=== PATIENT | male | born 1950 | race Caucasian/White ===

== ENCOUNTER → 2017-05-25 | Outpatient (CLI) | payer OTHER ==
[~2017-05-25] MED LIST: AMLO-114 PO; ATOR-24 PO; CLON-588 PO; CLOP1TAB15 PO; CYCL1CAP10 PO; DRGTP50 TOP; FLM4 PO; LVMI SQ; METO100T14 PO; MYCO500T5 PO; NVLGI SC; NXM/40 PO; OPTIRAY 320 IV PRN; PRED-301 PO
[2017-05-25 11:30] LABS: BLOOD UREA NITROGEN 29 mg/dl (7-18); BUN/CREATININE RATIO 23.8 (10-20)
--- NOTE | 2017-05-25 11:56 | DIAGNOSTIC IMAGING REPORT ---
CT HEAD COMBO CT DOSE: 1577.26 mGycm TECHNIQUE: Noncontrast images were obtained through the brain in the axial plane. The sequence was repeated following administration of 65 Optiray 320. A dose lowering technique was utilized adhering to the principles of ALARA. HISTORY: HEADACHE, DIZZY COMPARISON: 08/02/2014 FINDINGS: No intra or extra-axial mass lesions are visualized. There is no CT evidence of acute cortical infarction. There is no evidence of midline shift. There is no acute hemorrhage. No calvarial fractures are visualized. There are patchy white matter hypodensities likely on a small vessel basis. There is no evidence of pathologic ventricular dilatation. There is right maxilla sinus wall thickening which is felt to be chronic. There are no air-fluid levels to indicate acute sinusitis. There is persistent increased density of the tentorium, likely secondary to tentorial calcification. Postcontrast images reveal no pathologically enhancing masses. IMPRESSION: No acute intracranial findings Electronically signed by: Simon Caban M.D. 05/25/2017 11:55 AM Dictated Date/Time: 05/25/2017 11:52 AM
== END | disposition home or self-care (01) ==
LOC: C.CTS 10:13
PROVIDERS: ATTEND Physician Assistant
DX: Z94.0 Kidney transplant status (principal); R42 Dizziness and giddiness; R51 Headache; M54.5 Low back pain; G89.29 Other chronic pain; M48.06 Spinal stenosis, lumbar region; E11.65 Type 2 diabetes mellitus with hyperglycemia; Z95.818 Presence of other cardiac implants and grafts; Z79.02 Long term (current) use of antithrombotics/antiplatelets; Z79.52 Long term (current) use of systemic steroids; M19.90 Unspecified osteoarthritis, unspecified site; K21.9 Gastro-esophageal reflux disease without esophagitis; E78.5 Hyperlipidemia, unspecified; I25.10 Atherosclerotic heart disease of native coronary artery without angina pectoris; I10 Essential (primary) hypertension; Z86.73 Personal history of transient ischemic attack (TIA), and cerebral infarction without residual deficits; I25.2 Old myocardial infarction; H54.41 Blindness, right eye, normal vision left eye; Z89.511 Acquired absence of right leg below knee; Z89.512 Acquired absence of left leg below knee; Z88.5 Allergy status to narcotic agent

== ENCOUNTER → 2017-05-28 | Outpatient (CLI) | payer OTHER ==
[~2017-05-28] MED LIST changes: -CLON-588 PO; -DRGTP50 TOP; -OPTIRAY 320 IV PRN
--- NOTE | 2017-05-28 12:06 | DIAGNOSTIC IMAGING REPORT ---
MRA HEAD WITHOUT CONTRAST CLINICAL HISTORY: 67 years-old Male presenting with dizziness, headache, multiple falls over the past few months, weight loss, history of kidney transplant. TECHNIQUE: MR angiography of the head was performed without the use of intravenous contrast using 3-D [id number] technique. 3-D volumetric and/or maximum intensity projection (MIP) images were subsequently reconstructed for review. IV contrast: None.. COMPARISON: None. FINDINGS: Atherosclerotic plaque narrows the bilateral internal carotid arteries and the cavernous segments, greatest on the left with an apparent minimal diameter of 2 mm. Carotid termini patent. Remainder of the anterior circulation including the bilateral anterior middle cerebral arteries and anterior communicating artery patent. Posterior circulation demonstrates codominant vertebral arteries. The basilar, bilateral superior cerebellar, posterior cerebral, and posterior communicating arteries patent. IMPRESSION: 1. Stenosis in the bilateral cavernous segments of the internal carotid arteries, greatest on the left. No other stenosis. No evidence of aneurysm or vessel occlusion. Complete [place]. Electronically signed by: Marito Luciano M.D. 05/28/2017 12:05 PM Dictated Date/Time: 05/28/2017 12:00 PM
--- NOTE | 2017-05-28 12:37 | DIAGNOSTIC IMAGING REPORT ---
BILATERAL CAROTID DOPPLER STUDY HISTORY: Headache. Dizziness. ARTERIOSCLEROTIC CARDIOVASCULAR DISEASE COMPARISON: None. TECHNIQUE: Real-time, grayscale, and color Doppler sonography of the carotid arteries was performed. Imaging reviewed in the transverse and longitudinal planes. All measurements were calculated based on NASCET criteria. FINDINGS: Antegrade flow is seen in the bilateral vertebral arteries. The brachial pressures are hemodynamically similar. Minimal calcified plaque within the bilateral carotid bulbs. The peak systolic velocity within the right ICA is 110 cm/s. The right systolic ratio is 2.4. The peak systolic velocity within the left ICA is 71 cm/s. The left systolic ratio is 1.0. IMPRESSION: No hemodynamically significant stenosis seen within the carotid arteries. Electronically signed by: Aman Hardy M.D. 05/28/2017 12:36 PM Dictated Date/Time: 05/28/2017 12:33 PM
== END | disposition home or self-care (01) ==
LOC: C.MRI 10:17
PROVIDERS: ATTEND Physician Assistant
DX: I25.10 Atherosclerotic heart disease of native coronary artery without angina pectoris (principal); R42 Dizziness and giddiness

== ENCOUNTER → 2017-12-01 | Outpatient (CLI) | payer OTHER | END | disposition home or self-care (01) | LOC: C.PATHSPEC 18:08 | PROVIDERS: ATTEND Dermatology | DX: L98.0 Pyogenic granuloma (principal) ==

== ENCOUNTER 2022-04-14 17:35 | Inpatient (IN) ==
--- NOTE | 2022-04-14 17:49 | ED Triage Note ---
Date of Service April 14, 2022 History of Present Illness This patient was briefly evaluated while in triage. An abbreviated physical exam was performed. This patient is a 72-year-old Male with past medical history of hypertension, diabetes, stroke, and kidney transplant who presents to the ED for evaluation of cough, no appetite, right chest pain that started last week, tested positive for COVID 4 days ago. Here primarily because of the cough, states "it's just not going away and my chest hurts." Physical Exam CONSTITUTIONAL: No acute distress. Well appearing. RESPIRATORY: No tachypnea or labored breathing. Equal expansion bilaterally. NEUROLOGIC: Alert and oriented X 4 with normal affect. Normal speech. Initial orders for labs and / or imaging were placed and patient was placed in the waiting area until a bed is available. Please see further documentation for the full ED course. MDM / Impression Impression Impression: Pneumonia due to 2019 novel coronavirus, Hypoxia, Acute hyponatremia
--- NOTE | 2022-04-14 19:50 | Emergency Department Note ---
Impression & Plan Pneumonia due to 2019 novel coronavirus, Hypoxia, Acute hyponatremia ED Provider Note NAME: YENI HADDAD AGE: 72 SEX: M : 1950 ARRIVES VIA: Walk-In INFORMANT: Patient, ED PROVIDER(S): Srini Gdowin DO CHIEF COMPLAINT: Difficulty breathing HPI: The patient is a 72-year-old male who presented to the emergency department for evaluation of difficulty breathing. The patient is at ongoing symptoms since 1 week. The patient states he had a nonproductive cough and chest tightness. He does have bilateral lower extremity amputations. He denies having any swelling in his upper extremities. He denies having any abdominal pain. He did have a fever. He was seen by his family doctor last week and was diagnosed with COVID infection. The patient states that he started getting worse and having severe shortness of breath especially with exertion. He was told to go to the emergency department by his family doctor for further evaluation. He denies having any recent trauma. He has had no hemoptysis. He denies having any black or bloody bowel moods. ROS: See above HPI for pertinent positives & negatives. A total of 10 systems reviewed and were otherwise negative. PAST MEDICAL HISTORY: See Below PAST SURGICAL HISTORY: See Below FAMILY HISTORY: See Below SOCIAL HISTORY: See Below HOME MEDICATIONS: See Below ALLERGIES: See Below VITALS: See Below PHYSICAL EXAMINATION: GENERAL: Patient is awake alert in no acute distress patient is resting comfortably and showing no signs of anxiety EYES: The conjunctivae are clear. The pupils are round and reactive. EARS, NOSE, MOUTH AND THROAT: The nose is without any evidence of any deformity. Mucous membranes are moist. Tongue is midline. NECK: The neck is nontender and supple. RESPIRATORY: Diminished breath sounds are noted throughout. Scattered rhonchi were noted in both lung fitch. There were rales at the right base. CARDIOVASCULAR: Regular rate and rhythm noted there no murmurs rubs or gallops normal S1 normal S2. GASTROINTESTINAL: The abdomen is soft. Abdomen is nontender. Bilateral lower extremity amputations were noted. MUSCULOSKELETAL/EXTREMITIES: There is no evidence of gross deformity full range of motion is noted in the hips and shoulders. SKIN: There is no obvious evidence of any rash. NEUROLOGIC: Patient is awake alert and oriented x3 MEDICAL DECISION MAKING: The patient is a 72-year-old male who presented to the emergency department for an evaluation of difficulty breathing. The patient was recently diagnosed with COVID-19. He was found to be hypoxic in the emergency department. He was placed on supplemental oxygen. I discussed the patient's laboratory and radiographic studies with him. He appears to have signs of pneumonia on chest x-ray. Given the patient's recent COVID-19 test as well as his comorbidities I feel he would be a better candidate for inpatient management. He was treated with Decadron and IV antibiotics. He was reevaluated multiple times. The [facility] was notified about the patient. Triage Nursing notes reviewed. Prior medical records reviewed Vital Signs: reviewed and remarkable for elevated blood pressure and hypoxia. Differential diagnosis: Viral syndrome, otitis, pharyngitis, pneumonia, influenza, meningitis, urinary tract infection, sepsis, bacteremia, as well as other pathologies. ER treatment provided: See below Diagnostics interpreted by me: ECG: EKG was obtained in the emergency department. My interpretation is normal sinus rhythm at 88 bpm. PVCs were noted. There was no acute ST segment abnormalities noted. This was compared to a tracing from May 21, 2021. No changes were noted. Cardiac Monitoring: An order was placed for continuous cardiac monitoring. The monitor shows a rate of 76 bpm with sinus rhythm. Laboratory studies: As stated above and show below. Imaging studies: See below Consultation(s): The case was discussed with Dr. Staples who is on-call for the [facility]. Past Med/Surg History Medical History Arthritis Atherosclerosis of [place] coronary artery without angina pectoris Benign hypertension CAD (coronary artery disease) stent x 1 (2007) Carotid artery stenosis s/p left carotid endarterectomy (1996) Neck MRA (04/29/21): Over 70% stenosis within proximal aspect of the right internal carotid artery. Minimal, less than 50% stenosis is seen within distal aspect of the left internal carotid artery. Chronic back pain Chronic kidney disease s/p kidney transplant (2000) Chronic left hip pain Diabetes mellitus IDDM Enlarged prostate without lower urinary tract symptoms (luts) Gastroesophageal reflux disease Hearing loss Heart attack 2007 Hiatal hernia Hypercholesterolemia Hypertension Rx'd fludrocortisone for previous hypotension (? orthostatic) Lumbar radicular pain Lumbar spondylosis Myofascial pain Stroke CVA (1996) TIA (04/23/21) Surgical History H/O left wrist surgery History of anesthesia reaction Hallucinations, combative History of cardiac cath stent x 1 (2007) History of carotid endarterectomy 1996 (right) History of esophagogastroduodenoscopy (EGD) History of hip surgery Right ORIF Kidney replaced by transplant S/P bilateral BKA (below knee amputation) Status post carotid surgery Left (1996) Transplanted kidney 2000 Family History Father Hearing loss Heart disease Family history of diabetes mellitus Mother Hypertension Family history of diabetes mellitus Other No family history of adverse response to anesthesia No family history of bleeding disorder Denies family history of Ovarian cancer Prostate cancer Myocardial infarction Breast cancer Colorectal cancer Social History Smoking Status: Never smoker Tobacco Type: Smokeless Tobacco (Dip or Chew) Second Hand Exposure: No; Hx Alcohol Use: Yes (Occassional ) Alcohol type: hard liquor Hx Substance Use: No Preferred Language: Polish Visual Impairment: Severely Limited Hearing Ability: Hard of Hearing Beef Selector Required: No Beliefs That Will Affect Care: None marital status: Current Living Situation: Spouse current occupational status: retired Feels Safe at Home: Yes Childhood Exposure to Second-Hand Smoke: No Dental Care, Regularly: No Physical Activity Frequency: Does not Exercise Seatbelt Use: always Sunscreen Use: No Assistive Devices: Walker Allergies Allergies Allergy/AdvReac Type Severity Reaction Status Date / Time hydromorphone [From Dilaudid] Allergy Severe Respiratory Verified 04/14/22 21:04 Arrest gabapentin Allergy Unknown Unknown Verified 04/14/22 21:04 Home Meds Home Medications Medication Instructions Recorded Confirmed glucagon HCl 1 mg/mL solution for 0 mcg/kg IM UD PRN Hypoglycemia #2 06/14/19 04/14/22 injection ea aspirin 81 mg tablet,delayed 81 mg PO QAM 12/09/19 04/14/22 release acetaminophen 500 mg tablet 1,000 mg PO Q6H PRN Pain 04/24/21 04/14/22 (Tylenol Extra Strength) insulin detemir U-100 100 unit/mL 8 unit subcut QPM 05/31/21 04/14/22 subcutaneous solution (Levemir U-100 Insulin) ergocalciferol (vitamin D2) 1,250 1,250 mcg PO WK 04/14/22 04/14/22 mcg (50,000 unit) capsule hydrocodone 5 mg-acetaminophen 325 1 tab PO BID PRN Pain 04/14/22 04/14/22 mg tablet Previous Rx's Medication Instructions Recorded insulin syringe-needle U-100 0.5 #800 ea 02/03/20 mL 30 gauge x 1/2" (BD Insulin Syringe Ultra-Fine) cyclosporine modified 100 mg 100 mg PO BID #180 caps 05/10/21 capsule mycophenolate mofetil 500 mg tablet 1,000 mg PO BID #360 tabs 07/22/21 prednisone 5 mg tablet 5 mg PO DAILY #90 tabs 08/27/21 atorvastatin 40 mg tablet 40 mg PO QPM #90 tabs 08/28/21 esomeprazole magnesium 40 mg 40 mg PO QPM #90 caps 08/28/21 capsule,delayed release tamsulosin 0.4 mg capsule 0.4 mg PO QPM #90 caps 08/28/21 insulin aspart U-100 100 unit/mL 20 unit (0.2 mL) subcut TID #60 mL 09/10/21 subcutaneous solution (Novolog U-100 Insulin aspart) FreeStyle Devin 14 Day Sensor #6 ea 11/05/21 (flash glucose sensor) amlodipine 5 mg tablet 5 mg PO QAM #90 tabs 11/26/21 clopidogrel 75 mg tablet 75 mg PO QAM #90 tabs 11/26/21 fludrocortisone 0.1 mg tablet 0.1 mg PO QAM #90 tabs 11/26/21 ofloxacin 0.3 % ear drops 5 drp otic (ear) BID 10 days #10 mL 01/02/22 metoprolol tartrate 50 mg tablet 50 mg PO BID #180 tabs 04/01/22 baclofen 10 mg tablet 10 mg PO BID PRN spasms #60 tabs 04/08/22 hydrocodone 5 mg-acetaminophen 325 1 tab PO BID PRN pain #30 tabs 04/08/22 mg tablet molnupiravir 200 mg capsule (EUA) 800 mg PO Q12H 5 days #40 caps 04/10/22 Results & Data (ED) Vital Signs Vital Signs - 24 hr 04/14/22 17:47 04/14/22 19:59 04/14/22 20:00 Temperature 38.0 C H 37.1 C Temperature Source Temporal Artery Scan Oral Pulse Rate 84 Pulse Rate [Apical] 91 H 81 Respiratory Rate 20 26 H 20 Blood Pressure 122/50 L Blood Pressure [Right Arm] 178/75 H 164/81 H Blood Pressure Mean 74 Blood Pressure Mean [Right Arm] 109 108 Blood Pressure Position Sitting Pulse Oximetry 89 L 93 92 Oxygen Delivery Method Room Air Nasal Cannula Oxygen Flow Rate 2 Sepsis Recent Fever Within 48 Hours Yes Sepsis New/Unexplained Change in Mental Status No Sepsis Action Taken by Nursing No Action Required 04/14/22 21:30 Temperature Temperature Source Pulse Rate Pulse Rate [Apical] 76 Respiratory Rate 27 H Blood Pressure Blood Pressure [Right Arm] 162/79 H Blood Pressure Mean Blood Pressure Mean [Right Arm] 106 Blood Pressure Position Pulse Oximetry 93 Oxygen Delivery Method Nasal Cannula Oxygen Flow Rate Sepsis Recent Fever Within 48 Hours Sepsis New/Unexplained Change in Mental Status Sepsis Action Taken by Retirement Medications Current Medication List: was personally reviewed by me Laboratory Data Attestation: I reviewed the patient's lab results. Result diagrams: 04/14/22 19:52 04/14/22 20:12 Lab Results 04/14/22 04/14/22 04/14/22 Range/Units 19:52 19:52 19:52 WBC 7.49 (4.8-10.8) K/ul RBC 5.10 (4.63-6.08) M/uL Hgb 15.3 (14.0-18.0) g/dl Hct 44.0 (40.1-51.0) % MCV 86.3 (80.0-100.0) fL MCH 30.0 (25.0-34.0) pg MCHC 34.8 (32.0-36.0) g/dL RDW Std Deviation 45.5 (36.4-46.3) fL RDW Coeff of Natacha 14.3 (11.5-14.5) % Plt Count 116 L (130-400) K/uL MPV 11.0 (9.4-12.4) fL Immature Gran % (Auto) 0.3 % Neut % (Auto) 86.9 % Lymph % (Auto) 8.1 % Hill % (Auto) 4.4 % Eos % (Auto) 0.0 % Baso % (Auto) 0.3 % Neut # (Auto) 6.51 H (1.4-6.5) K/uL Lymph # (Auto) 0.61 L (1.2-3.4) K/uL Hill # (Auto) 0.33 (0.24-0.82) K/uL Eos # (Auto) 0.00 (0-0.50) K/uL Baso # (Auto) 0.02 (0-0.2) K/uL Immature Gran # (Auto) 0.02 (0.00-0.02) K/uL Echinocytes 1+ PT 11.4 (9.0-12.0) Seconds INR 1.1 (0.9-1.1) APTT 31.0 (21.0-31.0) Seconds PTT Ratio 1.1 VBG pH (7.36-7.41) VBG pCO2 (38-50) mmHg VBG pO2 mmHg VBG HCO3 mmol/L VBG O2 Saturation % VBG Base Excess mEq/L Sodium TNP Potassium TNP Chloride 92 L (98-107) mmol/L Carbon Dioxide 20 L (21-32) mmol/L Anion Gap TNP BUN 28 H (6-23) mg/dl Creatinine 1.22 (0.6-1.4) mg/dl Est Cr Clr Drug Dosing Not Reportable Est GFR ( Amer) 67.3 ml/min Est GFR (Non-Af Amer) 58.0 ml/min BUN/Creatinine Ratio 23.0 H (10-20) Glucose 183 H (70-99(Fasting)) mg/dl Lactate (0.4-2.0) mmol/L Calcium 9.0 (8.5-10.1) mg/dl Total Bilirubin 1.4 H (0.2-1.0) mg/dl AST TNP ALT 10 (7-52) U/L Alkaline Phosphatase 58 (34-104) U/L Troponin I High Sens 28.6 H (0-20) pg/ml Total Protein 6.0 (6.0-8.3) gm/dl Albumin 3.1 L (3.4-5.0) gm/dl Globulin 2.9 (2.5-4.0) gm/dl Albumin/Globulin Ratio 1.1 (0.9-2) Lipase 5 L (11-82) U/L SARS-CoV-2 (PCR) (Negative) Influenza Type A (PCR) (Neg) Influenza Type B (PCR) (Neg) RSV (RT-PCR) (Neg) 04/14/22 04/14/22 04/14/22 Range/Units 19:52 19:52 20:11 WBC (4.8-10.8) K/ul RBC (4.63-6.08) M/uL Hgb (14.0-18.0) g/dl Hct (40.1-51.0) % MCV (80.0-100.0) fL MCH (25.0-34.0) pg MCHC (32.0-36.0) g/dL RDW Std Deviation (36.4-46.3) fL RDW Coeff of Natacha (11.5-14.5) % Plt Count (130-400) K/uL MPV (9.4-12.4) fL Immature Gran % (Auto) % Neut % (Auto) % Lymph % (Auto) % Hill % (Auto) % Eos % (Auto) % Baso % (Auto) % Neut # (Auto) (1.4-6.5) K/uL Lymph # (Auto) (1.2-3.4) K/uL Hill # (Auto) (0.24-0.82) K/uL Eos # (Auto) (0-0.50) K/uL Baso # (Auto) (0-0.2) K/uL Immature Gran # (Auto) (0.00-0.02) K/uL Echinocytes PT (9.0-12.0) Seconds INR (0.9-1.1) APTT (21.0-31.0) Seconds PTT Ratio VBG pH 7.43 H (7.36-7.41) VBG pCO2 38 (38-50) mmHg VBG pO2 40 mmHg VBG HCO3 25 mmol/L VBG O2 Saturation 69.9 % VBG Base Excess 1.0 mEq/L Sodium Potassium Chloride (98-107) mmol/L Carbon Dioxide (21-32) mmol/L Anion Gap BUN (6-23) mg/dl Creatinine (0.6-1.4) mg/dl Est Cr Clr Drug Dosing Est GFR ( Amer) ml/min Est GFR (Non-Af Amer) ml/min BUN/Creatinine Ratio (10-20) Glucose (70-99(Fasting)) mg/dl Lactate 1.2 (0.4-2.0) mmol/L Calcium (8.5-10.1) mg/dl Total Bilirubin (0.2-1.0) mg/dl AST ALT (7-52) U/L Alkaline Phosphatase (34-104) U/L Troponin I High Sens (0-20) pg/ml Total Protein (6.0-8.3) gm/dl Albumin (3.4-5.0) gm/dl Globulin (2.5-4.0) gm/dl Albumin/Globulin Ratio (0.9-2) Lipase (11-82) U/L SARS-CoV-2 (PCR) POSITIVE A* (Negative) Influenza Type A (PCR) Negative (Neg) Influenza Type B (PCR) Negative (Neg) RSV (RT-PCR) Negative (Neg) 04/14/22 Range/Units 20:12 WBC (4.8-10.8) K/ul RBC (4.63-6.08) M/uL Hgb (14.0-18.0) g/dl Hct (40.1-51.0) % MCV (80.0-100.0) fL MCH (25.0-34.0) pg MCHC (32.0-36.0) g/dL RDW Std Deviation (36.4-46.3) fL RDW Coeff of Natacha (11.5-14.5) % Plt Count (130-400) K/uL MPV (9.4-12.4) fL Immature Gran % (Auto) % Neut % (Auto) % Lymph % (Auto) % Hill % (Auto) % Eos % (Auto) % Baso % (Auto) % Neut # (Auto) (1.4-6.5) K/uL Lymph # (Auto) (1.2-3.4) K/uL Hill # (Auto) (0.24-0.82) K/uL Eos # (Auto) (0-0.50) K/uL Baso # (Auto) (0-0.2) K/uL Immature Gran # (Auto) (0.00-0.02) K/uL Echinocytes PT (9.0-12.0) Seconds INR (0.9-1.1) APTT (21.0-31.0) Seconds PTT Ratio VBG pH (7.36-7.41) VBG pCO2 (38-50) mmHg VBG pO2 mmHg VBG HCO3 mmol/L VBG O2 Saturation % VBG Base Excess mEq/L Sodium 127 L Potassium 3.3 L Chloride (98-107) mmol/L Carbon Dioxide (21-32) mmol/L Anion Gap BUN (6-23) mg/dl Creatinine (0.6-1.4) mg/dl Est Cr Clr Drug Dosing Est GFR ( Amer) ml/min Est GFR (Non-Af Amer) ml/min BUN/Creatinine Ratio (10-20) Glucose (70-99(Fasting)) mg/dl Lactate (0.4-2.0) mmol/L Calcium (8.5-10.1) mg/dl Total Bilirubin (0.2-1.0) mg/dl AST 23 ALT (7-52) U/L Alkaline Phosphatase (34-104) U/L Troponin I High Sens (0-20) pg/ml Total Protein (6.0-8.3) gm/dl Albumin (3.4-5.0) gm/dl Globulin (2.5-4.0) gm/dl Albumin/Globulin Ratio (0.9-2) Lipase (11-82) U/L SARS-CoV-2 (PCR) (Negative) Influenza Type A (PCR) (Neg) Influenza Type B (PCR) (Neg) RSV (RT-PCR) (Neg) Administered Medications Discontinued Medications Dexamethasone Sodium Phosphate (DexamethasonePf 10 Mg/Ml Vial) 10 mg IV NOW ONE Stop: 04/14/22 20:39 Last Admin: 04/14/22 20:57 Dose: 10 mg Documented By: MIKY Ceftriaxone Sodium (Rocephin) 2,000 mg in 70 mls @ 140 mls/hr IV NOW STA Stop: 04/14/22 21:07 Last Infusion: 04/14/22 21:38 Dose: 0 mls/hr Documented By: Admin: 04/14/22 20:57 Dose: 140 mls/hr Documented By: EMB Imaging Data Radiologist's Impression: Chest X-Ray 04/14/22 17:50 XR chest 1V portable HISTORY: 72 years-old Male Chest Pain, cough, +COVID acute chest pain with cough COMPARISON: Chest radiograph 06/06/2021 TECHNIQUE: Portable AP view of the chest FINDINGS: Cardiac silhouette is enlarged. Atherosclerosis of the aorta. Pulmonary vascular congestion. Patchy left greater than right mixed interstitial and alveolar opacities lung bases. No pneumothorax or large pleural effusion. Arterial calcifications. Degenerative changes of the shoulders and spine. IMPRESSION: Bibasilar mixed interstitial and alveolar opacities are suggestive of an infectious or inflammatory pneumonitis such as viral pneumonia. ACT 112: Negative or not required by law. The above report was generated using voice recognition software. It may contain grammatical, syntax or spelling errors. Electronically signed by: Collins Godfrey M.D. 04/14/2022 8:26 PM Discharge Plan Visit Data Chief Complaint: Referred by Doctor Stated Complaint: REFERRED BY , KIRILL + ED Provider: Srini Godwin Discharge Problem: Pneumonia due to 2019 novel coronavirus, Hypoxia, Acute hyponatremia Patient Disposition: Being Evaluated by Hospitalist Forms Stand Alone Forms: [facility] Prescriptions Prescriptions: No Action baclofen 10 mg tablet 10 mg PO BID PRN (Reason: spasms) Qty: 60 0RF hydrocodone-acetaminophen 5-325 mg tablet 1 tab PO BID PRN (Reason: pain) Qty: 30 0RF Rx Instructions: ONGOING THERAPY cyclosporine modified 100 mg capsule 100 mg PO BID Qty: 180 3RF mycophenolate mofetil 500 mg tablet 1,000 mg PO BID Qty: 360 3RF insulin aspart U-100 [Novolog U-100 Insulin aspart] 100 unit/mL solution 20 unit subcut TID Qty: 60 3RF (DME) FreeStyle Devin 14 Day Sensor Kit See Rx Instructions .Route Qty: 6 3RF Rx Instructions: use for continuous glucose monitoring molnupiravir 200 mg capsule 800 mg PO Q12H 5 Days Qty: 40 0RF Rx Instructions: STARTED 04/10/22 FOR 5 DAYS. fludrocortisone 0.1 mg tablet 0.1 mg PO QAM Qty: 90 3RF clopidogrel 75 mg tablet 75 mg PO QAM Qty: 90 3RF amlodipine 5 mg tablet 5 mg PO QAM Qty: 90 3RF (DME) insulin syringe-needle U-100 [BD Insulin Syringe Ultra-Fine] 0.5 mL 30 gauge x 1/2" syringe See Dose Instructions .ROUTE .MEDSUPPLY Qty: 800 2RF Rx Instructions: As directed glucagon HCl 1 mg recon soln 0 mcg/kg IM UD PRN (Reason: Hypoglycemia) Qty: 2 prednisone 5 mg tablet 5 mg PO DAILY Qty: 90 3RF esomeprazole magnesium 40 mg capsule,delayed release(DR/EC) 40 mg PO QPM Qty: 90 3RF tamsulosin 0.4 mg capsule 0.4 mg PO QPM Qty: 90 3RF atorvastatin 40 mg tablet 40 mg PO QPM Qty: 90 3RF metoprolol tartrate 50 mg tablet 50 mg PO BID Qty: 180 3RF ofloxacin 0.3 % drops 5 drp otic (ear) BID 10 Days Qty: 10 1RF Rx Instructions: Left ear: 5 drops BID x 10-days then 5 drops to every other day until follow- up. aspirin 81 mg Tablet,Delayed Release (Dr/Ec) 81 mg PO QAM acetaminophen [Tylenol Extra Strength] 500 mg Tablet 1,000 mg PO Q6H PRN (Reason: Pain) Levemir U-100 Insulin 100 unit/mL solution 8 unit SQ QPM ergocalciferol (vitamin D2) 1,250 mcg (50,000 unit) capsule 1,250 mcg PO WK hydrocodone-acetaminophen 5-325 mg tablet 1 tab PO BID PRN (Reason: Pain) Referrals Referrals: Srini Cordero MD [Primary Care Provider] -
[2022-04-14 20:08] LABS: Hemoglobin 15.3 g/dl (14.0-18.0); Mean Corpuscular Hgb Conc 34.8 g/dL (32.0-36.0); Mean Corpuscular Volume 86.3 fL (80.0-100.0); Platelet Count 116 K/uL (130-400); RDW Coefficient of Variation 14.3 % (11.5-14.5); RDW Standard Deviation 45.5 fL (36.4-46.3); White Blood Count 7.49 K/ul (4.8-10.8)
[2022-04-14 20:24] LABS: Basophils # (auto) 0.02 K/uL (0-0.2); Basophils % (auto) 0.3 %; Echinocytes 1+; INR 1.1 (0.9-1.1); Immature Granulocytes # (auto) 0.02 K/uL (0.00-0.02); Immature Granulocytes % (auto) 0.3 %; Lymphocytes # (auto) 0.61 K/uL (1.2-3.4); Lymphocytes % (auto) 8.1 %; Monocytes # (auto) 0.33 K/uL (0.24-0.82); Monocytes % (auto) 4.4 %; Neutrophils # (auto) 6.51 K/uL (1.4-6.5); Neutrophils % (auto) 86.9 %; Partial Thromboplastin Ratio 1.1; Prothrombin Time 11.4 Seconds (9.0-12.0)
--- NOTE | 2022-04-14 20:27 | XRay Report ---
XR chest 1V portable HISTORY: 72 years-old Male Chest Pain, cough, +COVID acute chest pain with cough COMPARISON: Chest radiograph 06/06/2021 TECHNIQUE: Portable AP view of the chest FINDINGS: Cardiac silhouette is enlarged. Atherosclerosis of the aorta. Pulmonary vascular congestion. Patchy l eft greater than right mixed interstitial and alveolar opacities lung bases. No pneumothorax or large pleural effusion. Arterial calcifications. Degenerative changes of the shoulders and spine. IMPRESSION: Bibasilar mixed interstitial and alveolar opacities are suggestive of an infectious or in flammatory pneumonitis such as viral pneumonia. ACT 112: Negative or not required by law. The above report was generated using voice recognition software. It may contain grammatical, syntax o r spelling errors. Electronically signed by: Collins Godfrey M.D. 04/14/2022 8:26 PM
[2022-04-14 20:28] LABS: HCO3 VBG 25 mmol/L; Oxygen Saturation VBG 69.9 %; PCO2 VBG 38 mmHg (38-50); PO2 VBG 40 mmHg; pH VBG 7.43 (7.36-7.41)
[2022-04-14] MEDS ORDERED: cefTRIAXone SODIUM 2,000 MG/70 ML BAG IV STA (20:38)
[2022-04-14] MEDS ORDERED: dexAMETHasone**PF** 10 MG/ML VIAL IV ONE (20:38)
[2022-04-14 20:49] LABS: Troponin I High Sensitivity 28.6 pg/ml (0-20)
[2022-04-14 20:58] LABS: Influenza A virus by PCR Negative (Neg); Influenza B virus by PCR Negative (Neg); RSV by PCR Negative (Neg)
[2022-04-14 21:04] LABS: SARS CoV2 RNA(COVID-19) InHosp POSITIVE (Negative)
[2022-04-14 21:14] LABS: Alanine Aminotransferase 10 U/L (7-52); Albumin Globulin Ratio 1.1 (0.9-2); Albumin Level 3.1 gm/dl (3.4-5.0); Alkaline Phosphatase 58 U/L (34-104); Bilirubin,Total 1.4 mg/dl (0.2-1.0); Blood Urea Nitrogen 28 mg/dl (6-23); Carbon Dioxide 20 mmol/L (21-32); Chloride 92 mmol/L (98-107); Est GFR (African American) 67.3 ml/min; Globulin 2.9 gm/dl (2.5-4.0); Glucose 183 mg/dl (70-99(Fasting)); Lipase 5 U/L (11-82)
[2022-04-14 22:34] LABS: Potassium 3.3 mmol/L (3.5-5.1)
--- NOTE | 2022-04-15 00:03 | History & Physical Report ---
Date of Service April 15, 2022 Assessment & Plan (1) Acute respiratory failure with hypoxia: Plan: Acute respiratory failure with hypoxia/secondary bacterial pneumonia/COVID-19 infection- Received dexamethasone 10 mg IV and ceftriaxone 2 g IV from the ED Dexamethasone 6 mg IV every morning Ceftriaxone 2 g IV daily Azithromycin 500 mg IV daily Combivent Respimat 2 puffs 4 times daily DuoNebs every 2 hours as needed Guaifenesin extended release 1200 mg p.o. twice daily Vitamin D 5000 international units p.o. every morning Zinc sulfate turn 20 mg p.o. every morning (2) Secondary bacterial pneumonia: Plan: Patient symptoms of worsening infection over the past week, suggestive of secondary bacterial pneumonia, treatment as above (3) COVID-19 virus infection: Plan: See above (4) Acute hyponatremia: Plan: Sodium 127 upon admission Serum osmolality and urine osmolality pending Follow laboratory serially (5) Transplanted kidney: Plan: Continue cyclosporine, mycophenolate Aggressive treatment of pulmonary status to the immunosuppressed state (6) Diabetes mellitus: Plan: Continue Levemir 8 units subcu every afternoon Hold standing order for insulin aspart 20 units [address] on Accu-Cheks before meals and at bedtime with NovoLog coverage per scale Check hemoglobin A1c (7) Gastroesophageal reflux disease: Plan: Continue Nexium/pantoprazole (8) Hypercholesterolemia: Plan: Continue atorvastatin 40 mg daily (9) Hypertension: Plan: Carotid stenosis/CVA/Hypertension- Continue amlodipine, aspirin, clopidogrel, and metoprolol tartrate (10) Stroke: Plan: See above (11) Idiopathic polyneuropathy: Plan: See above History of Present Illness Chief Complaint: The patient presents to the emergency department with complaint of progressively worsening sore throat, shortness of breath for the past 2 weeks, with nonproductive cough and chest tightness over the past week. He was seen by his family doctor last week, and was diagnosed with COVID-19 infection, and due to worsening symptoms this week, his family doctor advised him to come to the emergency department for assessment. Primary Care Provider: Srini Cordero MD The patient is a 72-year-old male with a past medical history including myofascial pain syndrome, chronic anticoagulation, idiopathic polyneuropathy, carotid stenosis, lumbar radicular pain, CAD, hypertension, status post bilateral BKA's, diabetes mellitus, BPH, GERD, hearing loss, kidney transplant status, hypertension and CVA. He presents with symptoms as noted above. Work-up in the emergency department included the following abnormal laboratories: Sodium 127, potassium 3.3, creatinine 1.22, glucose 183, highly sensitive troponin 28.6, albumin 3.1. COVID-19 testing was positive this evening. Chest x-ray showed bibasilar mixed interstitial and alveolar opacities suggestive of infectious or inflammatory pneumonitis such as viral pneumonia Allergies Allergy/AdvReac Type Severity Reaction Status Date / Time hydromorphone [From Dilaudid] Allergy Severe Respiratory Verified 04/14/22 21:04 Arrest gabapentin Allergy Unknown Unknown Verified 04/14/22 21:04 Home Medications Medication Instructions Recorded Confirmed Type glucagon HCl 1 mg/mL solution for 0 mcg/kg IM UD PRN Hypoglycemia #2 06/14/19 04/14/22 History injection ea aspirin 81 mg tablet,delayed 81 mg PO QAM 12/09/19 04/14/22 History release insulin syringe-needle U-100 0.5 #800 ea 02/03/20 04/01/22 Rx mL 30 gauge x 1/2" (BD Insulin Syringe Ultra-Fine) acetaminophen 500 mg tablet 1,000 mg PO Q6H PRN Pain 04/24/21 04/14/22 History (Tylenol Extra Strength) cyclosporine modified 100 mg 100 mg PO BID #180 caps 05/10/21 04/14/22 Rx capsule insulin detemir U-100 100 unit/mL 8 unit subcut QPM 05/31/21 04/14/22 History subcutaneous solution (Levemir U-100 Insulin) mycophenolate mofetil 500 mg tablet 1,000 mg PO BID #360 tabs 07/22/21 04/14/22 Rx prednisone 5 mg tablet 5 mg PO DAILY #90 tabs 08/27/21 04/14/22 Rx atorvastatin 40 mg tablet 40 mg PO QPM #90 tabs 08/28/21 04/14/22 Rx esomeprazole magnesium 40 mg 40 mg PO QPM #90 caps 08/28/21 04/14/22 Rx capsule,delayed release tamsulosin 0.4 mg capsule 0.4 mg PO QPM #90 caps 08/28/21 04/14/22 Rx insulin aspart U-100 100 unit/mL 20 unit (0.2 mL) subcut TID #60 mL 09/10/21 04/14/22 Rx subcutaneous solution (Novolog U-100 Insulin aspart) FreeStyle Devin 14 Day Sensor #6 ea 11/05/21 04/01/22 Rx (flash glucose sensor) amlodipine 5 mg tablet 5 mg PO QAM #90 tabs 11/26/21 04/14/22 Rx clopidogrel 75 mg tablet 75 mg PO QAM #90 tabs 11/26/21 04/14/22 Rx fludrocortisone 0.1 mg tablet 0.1 mg PO QAM #90 tabs 11/26/21 04/14/22 Rx ofloxacin 0.3 % ear drops 5 drp otic (ear) BID 10 days #10 mL 01/02/22 04/14/22 Rx metoprolol tartrate 50 mg tablet 50 mg PO BID #180 tabs 04/01/22 04/14/22 Rx baclofen 10 mg tablet 10 mg PO BID PRN spasms #60 tabs 04/08/22 04/14/22 Rx hydrocodone 5 mg-acetaminophen 325 1 tab PO BID PRN pain #30 tabs 04/08/22 04/14/22 Rx mg tablet molnupiravir 200 mg capsule (EUA) 800 mg PO Q12H 5 days #40 caps 04/10/22 04/14/22 Rx ergocalciferol (vitamin D2) 1,250 1,250 mcg PO WK 04/14/22 04/14/22 History mcg (50,000 unit) capsule hydrocodone 5 mg-acetaminophen 325 1 tab PO BID PRN Pain 04/14/22 04/14/22 History mg tablet Past Med/Surg History Medical History Arthritis Atherosclerosis of [place] coronary artery without angina pectoris Benign hypertension CAD (coronary artery disease) stent x 1 (2007) Carotid artery stenosis s/p left carotid endarterectomy (1996) Neck MRA (04/29/21): Over 70% stenosis within proximal aspect of the right internal carotid artery. Minimal, less than 50% stenosis is seen within distal aspect of the left internal carotid artery. Chronic back pain Chronic kidney disease s/p kidney transplant (2000) Chronic left hip pain Diabetes mellitus IDDM Enlarged prostate without lower urinary tract symptoms (luts) Gastroesophageal reflux disease Hearing loss Heart attack 2007 Hiatal hernia Hypercholesterolemia Hypertension Rx'd fludrocortisone for previous hypotension (? orthostatic) Lumbar radicular pain Lumbar spondylosis Myofascial pain Stroke CVA (1996) TIA (04/23/21) Surgical History H/O left wrist surgery History of anesthesia reaction Hallucinations, combative History of cardiac cath stent x 1 (2007) History of carotid endarterectomy 1996 (right) History of esophagogastroduodenoscopy (EGD) History of hip surgery Right ORIF Kidney replaced by transplant S/P bilateral BKA (below knee amputation) Status post carotid surgery Left (1996) Transplanted kidney 2000 Family History Father Hearing loss Heart disease Family history of diabetes mellitus Mother Hypertension Family history of diabetes mellitus Other No family history of adverse response to anesthesia No family history of bleeding disorder Denies family history of Ovarian cancer Prostate cancer Myocardial infarction Breast cancer Colorectal cancer Social History Smoking Status: Never smoker Tobacco Type: Smokeless Tobacco (Dip or Chew) Second Hand Exposure: No; Hx Alcohol Use: Yes (Occassional ) Alcohol type: hard liquor Hx Substance Use: No Preferred Language: Surinamese Visual Impairment: Severely Limited Hearing Ability: Hard of Hearing 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 Beliefs That Will Affect Care: None marital status: Current Living Situation: Spouse current occupational status: retired Feels Safe at Home: Yes Childhood Exposure to Second-Hand Smoke: No Dental Care, Regularly: No Physical Activity Frequency: Does not Exercise Seatbelt Use: always Sunscreen Use: No Assistive Devices: Walker Review of Systems Review of Systems: The patient denies palpitations, fevers, chills, sweats, weight change, fatigue, nausea, vomiting, diarrhea, constipation, abdominal pain, pelvic pain, blood in urine or stool, dysuria, urinary frequency or urgency, lightheadedness, dizziness, headache, memory loss, loss of consciousness, rash, abnormal bruising or bleeding, focal or generalized weakness, numbness or tingling in arms or legs, back or neck pain, or night sweats. The review of systems is otherwise negative other than for that already noted above, and at least 10 systems have been reviewed. Physical Exam Physical Exam: The patient is awake, alert and oriented 3, well developed and well nourished, normocephalic and atraumatic, lying in bed and in no acute distress. HEENT--PERRL, EOMI, mucous membranes and oropharynx dry. Neck--supple. No JVD. No bruits. Thyroid normal, trachea midline, no adenopathy. Heart--normal S1 and S2. No murmurs, rubs or gallops. Lungs--coarse breath sounds bilaterally. No respiratory distress, no accessory muscle use. Abdomen--normal bowel sounds and soft. Nontender. Nondistended, no hernias or masses, no organomegaly. Extremities--no cyanosis or clubbing. No edema. Dermatologic--normal skin turgor, normal color, no abnormal lymph nodes, no rash. Neurologic--cranial nerves II through XII grossly intact. Rheumatologic--normal range of motion, limited exam due to BKA's bilaterally Psychiatric--normal affect. Results & Data Results & Data ([facility]) Vital Signs (Past 12 Hours) Vital Signs Temp Pulse Pulse Resp BP BP Pulse Ox 04/14/22 23:00 74 20 153/77 H 93 04/14/22 21:30 76 27 H 162/79 H 93 04/14/22 20:00 81 20 164/81 H 92 04/14/22 19:59 37.1 C 91 H 26 H 178/75 H 93 04/14/22 17:47 38.0 C H 84 20 122/50 L 89 L O2 Del Method O2 Flow Rate 04/14/22 23:00 04/14/22 21:30 Nasal Cannula 04/14/22 20:00 04/14/22 19:59 Nasal Cannula 2 04/14/22 17:47 Room Air Laboratory Results Laboratory Results WBC 7.49 K/ul (4.8-10.8) 04/14/22 19:52 RBC 5.10 M/uL (4.63-6.08) 04/14/22 19:52 Hgb 15.3 g/dl (14.0-18.0) 04/14/22 19:52 Hct 44.0 % (40.1-51.0) 04/14/22 19:52 MCV 86.3 fL (80.0-100.0) 04/14/22 19:52 MCH 30.0 pg (25.0-34.0) 04/14/22: MCHC 34.8 g/dL (32.0-36.0) 04/14/22: RDW Std Deviation 45.5 fL (36.4-46.3) 04/14/22: RDW Coeff of Natacha 14.3 % (11.5-14.5) 04/14/22: Plt Count 116 K/uL (130-400) L 04/14/22:52 MPV 11.0 fL (9.4-12.4) 04/14/22: Immature Gran % (Auto) 0.3 % 04/14/22: Neut % (Auto) 86.9 % 04/14/22: Lymph % (Auto) 8.1 % 04/14/22: [place] % (Auto) 4.4 % 04/14/22: Eos % (Auto) 0.0 % 04/14/22: Baso % (Auto) 0.3 % 04/14/22: Neut # (Auto) 6.51 K/uL (1.4-6.5) H 04/14/22: Lymph # (Auto) 0.61 K/uL (1.2-3.4) L 04/14/22:52 [place] # (Auto) 0.33 K/uL (0.24-0.82) 04/14/22: Eos # (Auto) 0.00 K/uL (0-0.50) 04/14/22: Baso # (Auto) 0.02 K/uL (0-0.2) 04/14/22: Immature Gran # (Auto) 0.02 K/uL (0.00-0.02) 04/14/22: Echinocytes 1+ 04/14/22: PT 11.4 Seconds (9.0-12.0) 04/14/22: INR 1.1 (0.9-1.1) 04/14/22: APTT 31.0 Seconds (21.0-31.0) 04/14/22: PTT Ratio 1.1 04/14/22 19:52 VBG pH 7.43 (7.36-7.41) H 04/14/22 20:11 VBG pCO2 38 mmHg (38-50) 04/14/22 20:11 VBG pO2 40 mmHg 04/14/22 20:11 VBG HCO3 25 mmol/L 04/14/22 20:11 VBG O2 Saturation 69.9 % 04/14/22 20:11 VBG Base Excess 1.0 mEq/L 04/14/22 20:11 Sodium 127 mmol/L (136-145) L 04/14/22 20:12 Potassium 3.3 mmol/L (3.5-5.1) L 04/14/22 20:12 Chloride 92 mmol/L (98-107) L 04/14/22 19:52 Carbon Dioxide 20 mmol/L (21-32) L 04/14/22 19:52 Anion Gap TNP 04/14/22 19:52 BUN 28 mg/dl (6-23) H 04/14/22 19:52 Creatinine 1.22 mg/dl (0.6-1.4) 04/14/22 19:52 Est Cr Clr Drug Dosing Not Reportable 04/14/22 19:52 Est GFR ( Amer) 67.3 ml/min 04/14/22 19:52 Est GFR (Non-Af Amer) 58.0 ml/min 04/14/22 19:52 BUN/Creatinine Ratio 23.0 (10-20) H 04/14/22 19:52 Glucose 183 mg/dl (70-99(Fasting)) H 04/14/22 19:52 Lactate 1.2 mmol/L (0.4-2.0) 04/14/22 19:52 Calcium 9.0 mg/dl (8.5-10.1) 04/14/22 19:52 Total Bilirubin 1.4 mg/dl (0.2-1.0) H 04/14/22 19:52 AST 23 U/L (13-39) 04/14/22 20:12 ALT 10 U/L (7-52) 04/14/22 19:52 Alkaline Phosphatase 58 U/L (34-104) 04/14/22 19:52 Troponin I High Sens 28.6 pg/ml (0-20) H 04/14/22 19:52 Total Protein 6.0 gm/dl (6.0-8.3) 04/14/22 19:52 Albumin 3.1 gm/dl (3.4-5.0) L 04/14/22 19:52 Globulin 2.9 gm/dl (2.5-4.0) 04/14/22 19:52 Albumin/Globulin Ratio 1.1 (0.9-2) 04/14/22 19:52 Lipase 5 U/L (11-82) L 04/14/22 19:52 SARS-CoV-2 (PCR) POSITIVE (Negative) A* 04/14/22 19:52 Influenza Type A (PCR) Negative (Neg) 04/14/22 19:52 Influenza Type B (PCR) Negative (Neg) 04/14/22 19:52 RSV (RT-PCR) Negative (Neg) 04/14/22 19:52 Impressions Chest X-Ray 04/14/22 17:50 XR chest 1V portable HISTORY: 72 years-old Male Chest Pain, cough, +COVID acute chest pain with cough COMPARISON: Chest radiograph 06/06/2021 TECHNIQUE: Portable AP view of the chest FINDINGS: Cardiac silhouette is enlarged. Atherosclerosis of the aorta. Pulmonary vascular congestion. Patchy left greater than right mixed interstitial and alveolar opacities lung bases. No pneumothorax or large pleural effusion. Arterial calcifications. Degenerative changes of the shoulders and spine. IMPRESSION: Bibasilar mixed interstitial and alveolar opacities are suggestive of an infectious or inflammatory pneumonitis such as viral pneumonia. ACT 112: Negative or not required by law. The above report was generated using voice recognition software. It may contain grammatical, syntax or spelling errors. Electronically signed by: Collins Godfrey M.D. 04/14/2022 8:26 PM Code Status & VTE Plan Code Status Full code VTE Prophylaxis Plan VTE Prophylaxis will be ordered: Yes PG Care Time/CCT Total # of Minutes Spent Total Time Spent with Patient: Total time spent is greater than 50% in coordination of care (as documented) at patient's floor/unit and/or counseling patient: Coding Level of Care Code 30428 Initial Inpt Care Lvl 3 Diagnoses Acute respiratory failure with hypoxia J96.01 Secondary bacterial pneumonia J15.9 COVID-19 virus infection U07.1 Acute hyponatremia E87.1 Transplanted kidney Z94.0 Diabetes mellitus E11.9 Gastroesophageal reflux disease K21.9 Hypercholesterolemia E78.00 Hypertension I10 Stroke I63.9 Idiopathic polyneuropathy G60.9
[2022-04-15] MEDS ORDERED: GLUCOSE 40% GEL 15 GM TUBE PO PRN (01:40)
[2022-04-15] MEDS ORDERED: ALBUT/IPRATROP 3MG/0.5MG NEB 3 ML VIAL NEB PRN (01:40)
[2022-04-15] MEDS ORDERED: ACETAMINOPHEN 500 MG TAB PO PRN (01:40)
[2022-04-15] MEDS ORDERED: BACLOFEN 10 MG TAB PO PRN (01:40)
[2022-04-15] MEDS ORDERED: GLUCOSE 10 TAB/TUBE PO PRN (01:40)
[2022-04-15] MEDS ORDERED: HYDROCODONE/ACETAMOPHEN 5/325MG TAB PO PRN ×2 (01:40)
[2022-04-15] MEDS ORDERED: ONDANSETRON INJ 2 MG/ML 2 ML VIAL IV PRN (01:40)
[2022-04-15] MEDS ORDERED: DEXTROSE 50% 50 ML SYRINGE IV PRN (01:40)
[2022-04-15] MEDS ORDERED: GLUCAGON FOR INJ 1 MG VIAL SQ PRN (01:40)
[2022-04-15] MEDS ORDERED: CARBOHYDRATES FOR HYPOGLYCEMIA PO PRN (01:40)
[2022-04-15] MEDS: MYCOPHENOLATE MOFETIL 250 MG CAP PO SCH ×3 (02:34→20:38)
[2022-04-15] MEDS: cycloSPORINE 100 MG CAP PO SCH ×3 (02:34→20:40)
[2022-04-15] MEDS: METOPROLOL TARTRATE 50 MG TAB PO SCH ×3 (02:35→20:39)
[2022-04-15] MEDS: ENOXAPARIN INJ 40 MG/0.4 ML SYR SQ SCH ×2 (05:38→17:07)
[2022-04-15] MEDS: IPRATROPIUM BROMIDE HFA INHALER INH SCH ×4 (07:42→19:35)
[2022-04-15] MEDS: ALBUTEROL HFA 8 GM INHALER INH SCH ×4 (07:42→19:36)
[2022-04-15] MEDS: cefTRIAXone SODIUM 2,000 MG in DEXTROSE 5% 50 ML IV SCH (08:06)
[2022-04-15] MEDS: dexAMETHasone 6 MG in SYRINGE 0 ML IV SCH (08:06)
[2022-04-15] MEDS: CHOLECALCIFEROL 5,000 UNITS 125 MCG TAB PO SCH (08:08)
[2022-04-15] MEDS: FLUDROCORTISONE ACETATE 0.1 MG TAB PO SCH (08:08)
[2022-04-15] MEDS: guaiFENesin 600 MG TABCR PO SCH ×2 (08:08→20:39)
[2022-04-15] MEDS: amLODIPine BESYLATE 5 MG TAB PO SCH (08:09)
[2022-04-15] MEDS: ASPIRIN 81 MG ECTAB PO SCH (08:09)
[2022-04-15] MEDS: ZINC SULFATE 220 MG CAPSULE PO SCH (08:09)
[2022-04-15] MEDS: CLOPIDOGREL BISULFATE 75 MG TAB PO SCH (08:09)
[2022-04-15 08:45] LABS: Acanthocytes 1+; Echinocytes 3+; Hemoglobin 15.2 g/dl (14.0-18.0); Immature Granulocytes # (auto) 0.01 K/uL (0.00-0.02); Immature Granulocytes % (auto) 0.2 %; Lymphocytes # (auto) 0.23 K/uL (1.2-3.4); Lymphocytes % (auto) 5.3 %; Mean Corpuscular Hemoglobin 29.4 pg (25.0-34.0); Mean Corpuscular Hgb Conc 33.8 g/dL (32.0-36.0); Mean Platelet Volume 11.4 fL (9.4-12.4); Monocytes # (auto) 0.07 K/uL (0.24-0.82); Monocytes % (auto) 1.6 %; Neutrophils # (auto) 4.06 K/uL (1.4-6.5); Neutrophils % (auto) 92.9 %; Platelet Count 116 K/uL (130-400); RDW Coefficient of Variation 14.4 % (11.5-14.5); RDW Standard Deviation 46.1 fL (36.4-46.3); Red Blood Count 5.17 M/uL (4.63-6.08); White Blood Count 4.37 K/ul (4.8-10.8)
[2022-04-15] MEDS: INSULIN ASPART PER UNIT SC SCH ×4 (08:51→20:40)
[2022-04-15 09:00] LABS: Albumin Level 2.7 gm/dl (3.4-5.0); BUN Creatinine Ratio 27.9 (10-20); Bilirubin,Total 1.8 mg/dl (0.2-1.0); Calcium 8.7 mg/dl (8.5-10.1); Creatinine Clr Calc Pharmacy 41.6 ml/min; Est GFR (Non-African American) 49.1 ml/min; Globulin 2.8 gm/dl (2.5-4.0); Magnesium 1.7 mg/dl (1.7-2.4); Potassium 3.9 mmol/L (3.5-5.1); Total Protein 5.5 gm/dl (6.0-8.3)
[2022-04-15] MEDS ORDERED: IPRATROPIUM BROMIDE/ALBUTEROL respimat INH INH SCH (09:00)
[2022-04-15] MEDS ORDERED: AZITHROMYCIN 500 MG in DEXTROSE 5% 250 ML IV SCH (09:00)
[2022-04-15] MEDS ORDERED: PHARMACY GLYCEMIC MGMT CONSULT PRN (09:01)
[2022-04-15] MEDS ORDERED: INSULIN ASPART PER UNIT SC ONE (09:30)
[2022-04-15] MEDS ORDERED: LANTUS PER UNIT CHARGE SQ ONE (09:30)
[2022-04-15] MEDS ORDERED: INSULIN HUMAN REGULAR PER UNIT 5 UNITS in SYRINGE 4.95 ML IV ONE ×2 (10:00→12:30)
--- NOTE | 2022-04-15 11:44 | Electrocardiogram Report ---
Test Reason : Blood Pressure : / mmHG Vent. Rate : 088 BPM Atrial Rate : 088 BPM P-R Int : 234 ms QRS Dur : 110 ms QT Int : 374 ms P-R-T Axes : 035 -09 049 degrees QTc Int : 452 ms Sinus rhythm with 1st degree A-V block with occasional Premature ventricular complexes Otherwise normal ECG When compared with ECG of 21-MAY-2021 09:39, Premature ventricular complexes are now Present Nonspecific T wave abnormality, improved in Lateral leads Confirmed by Son Ramon ([id number]) on 04/15/2022 11:44:30 AM Referred By: Srini Cordero Confirmed By:Sameer Ramon
--- NOTE | 2022-04-15 11:53 | Electrocardiogram Report ---
Test Reason : Blood Pressure : / mmHG Vent. Rate : 067 BPM Atrial Rate : 067 BPM P-R Int : 198 ms QRS Dur : 104 ms QT Int : 452 ms P-R-T Axes : 026 -15 022 degrees QTc Int : 477 ms Normal sinus rhythm Normal ECG When compared with ECG of 14-APR-2022 19:41, (unconfirmed) Premature ventricular complexes are no longer Present [place] interval has decreased Confirmed by Son Ramon ([id number]) on 04/15/2022 11:52:27 AM Referred By: Srini Cordero Confirmed By:Sameer Ramon
[2022-04-15 13:09] LABS: Estimated Average Glucose 197 mg/dl; Hemoglobin A1C 8.5 % (4.5-5.6)
[2022-04-15] MEDS ORDERED: INSULIN ASPART PER UNIT SC SCH (14:00)
--- NOTE | 2022-04-15 14:07 | Pharmacy Report ---
Pharmacy Glycemic Short Note 2 - Date of Service April 15, 2022 - Glycemic Short BSG Results (Last 24 hours): 04/14/22 04/15/22 04/15/22 19:52 07:41 07:42 Glucose 183 H POC Glucose 454 H* 436 H* 04/15/22 04/15/22 04/15/22 07:56 11:50 13:44 Glucose 492 H* POC Glucose 444 H* 440 H* OUTPATIENT ANTIDIABETIC REGIMEN: * Levemir 8 units HS * Novolog 20 units with meals * (HM) prednisone 5 mg daily ASSESSMENT: * Mr Vega is a 72 y/o M with a PMH of T2DM who presents with COVID. * BSG on admission, prior to dexamethasone, was 183 mg/dL. * In evening of 04/14/22, patient received dexamethasone 10 mg x 1. Now ordered dexamethasone 6 mg IV daily. * BSG in AM of 04/15/22 was 454 mg/dL. Pharmacy consulted for glycemic management. * Started Lantus 25 units (full weight-based stress of 2/3) + Novolog with CR tighter than weight-based stress of 3. Suspected patient very sensitive to steroids due to large Novolog doses at home on prednisone 5 mg daily. * 5 unit IV bolus given (0.1 unit/kg). * Lunch BSG did not improve and carbohydrate ratio tightened even further. Additional 5 unit IV bolus started. * A check was ordered for 2 hours after lunch as BSGs remained > 400 mg/dL. This check was again > 400 mg/dL. Hyperglycemia has been sustained > 6 hours so a call was placed to provider for approval insulin infusion. This was okay'ed. Notified provider to consider potassium supplementation at K only 3.9 on PRP this AM. * Fixed carbohydrate ratio of 1 unit per 4 grams of carbohydrates consumed. PLAN FOR INPATIENT GLYCEMIC CONTROL: * Basal insulin * Lantus 25 units SQ x 1 then re-assess tomorrow * Bolus insulin * NovoLog per scale ACHS or Q6hrs while NPO * Goal Range: Low 140 mg/dL - High 180 mg/dL * Correction Factor: -- mg/dL/unit * Nutritional / Prandial insulin per carb ratio of 1 unit per 4 grams CHO consumed
[2022-04-15] MEDS ORDERED: POTASSIUM CHLORIDE CRTAB 20 MEQ TABCR PO STA (14:48)
[2022-04-15] MEDS ORDERED: INSULIN REGULAR 250 UNITS in SODIUM CHLORIDE 0.9% 247.5 ML IV SCH (15:00)
[2022-04-15] MEDS: POTASSIUM CHLORIDE CRTAB 20 MEQ TABCR PO SCH (20:38)
[2022-04-15] MEDS ORDERED: PANTOprazole 40 MG TAB PO SCH (21:00)
[2022-04-15] MEDS ORDERED: INSULIN DETEMIR FLEXPEN/FLEX TOUCH 100 UNITS/ML 3ML SQ SCH (21:00)
[2022-04-15] MEDS ORDERED: TAMSULOSIN HCL 0.4 MG CAP PO SCH (21:00)
[2022-04-15] MEDS ORDERED: ATORVASTATIN 40 MG TAB PO SCH (21:00)
[2022-04-16] MEDS: ENOXAPARIN INJ 40 MG/0.4 ML SYR SQ SCH (05:36)
[2022-04-16] MEDS: ALBUTEROL HFA 8 GM INHALER INH SCH (06:56)
[2022-04-16] MEDS: IPRATROPIUM BROMIDE HFA INHALER INH SCH (06:56)
[2022-04-16] MEDS ORDERED: LANTUS PER UNIT CHARGE SQ SCH (07:45)
[2022-04-16] MEDS: INSULIN ASPART PER UNIT SC SCH ×3 (08:01→16:51)
[2022-04-16] MEDS: cefTRIAXone SODIUM 2,000 MG in DEXTROSE 5% 50 ML IV SCH (08:04)
[2022-04-16] MEDS: dexAMETHasone 6 MG in SYRINGE 0 ML IV SCH (08:12)
[2022-04-16] MEDS: guaiFENesin 600 MG TABCR PO SCH (08:13)
[2022-04-16] MEDS: MYCOPHENOLATE MOFETIL 250 MG CAP PO SCH (08:13)
[2022-04-16] MEDS: CHOLECALCIFEROL 5,000 UNITS 125 MCG TAB PO SCH (08:14)
[2022-04-16] MEDS: ASPIRIN 81 MG ECTAB PO SCH (08:14)
[2022-04-16] MEDS: METOPROLOL TARTRATE 50 MG TAB PO SCH (08:14)
[2022-04-16] MEDS: amLODIPine BESYLATE 5 MG TAB PO SCH (08:14)
[2022-04-16] MEDS: ZINC SULFATE 220 MG CAPSULE PO SCH (08:14)
[2022-04-16] MEDS: CLOPIDOGREL BISULFATE 75 MG TAB PO SCH (08:14)
[2022-04-16] MEDS: POTASSIUM CHLORIDE CRTAB 20 MEQ TABCR PO SCH ×2 (08:14→15:21)
[2022-04-16] MEDS: cycloSPORINE 100 MG CAP PO SCH (08:14)
[2022-04-16] MEDS ORDERED: AZITHROMYCIN 250 MG TAB PO SCH (09:00)
[2022-04-16 09:24] LABS: Hematocrit (blood only) 44.5 % (40.1-51.0); Hemoglobin 15.6 g/dl (14.0-18.0); Mean Corpuscular Hemoglobin 29.5 pg (25.0-34.0); Mean Corpuscular Hgb Conc 35.1 g/dL (32.0-36.0); Mean Corpuscular Volume 84.1 fL (80.0-100.0); Mean Platelet Volume 10.8 fL (9.4-12.4); Platelet Count 186 K/uL (130-400); RDW Coefficient of Variation 13.6 % (11.5-14.5); Red Blood Count 5.29 M/uL (4.63-6.08); White Blood Count 9.78 K/ul (4.8-10.8)
[2022-04-16] MEDS ORDERED: ALBUTEROL HFA 8 GM INHALER INH PRN (09:28)
[2022-04-16] MEDS ORDERED: IPRATROPIUM BROMIDE HFA INHALER INH PRN (09:28)
[2022-04-16] MEDS: FLUDROCORTISONE ACETATE 0.1 MG TAB PO SCH (09:39)
[2022-04-16 09:57] LABS: Basophils # (auto) 0.01 K/uL (0-0.2); Basophils % (auto) 0.1 %; Echinocytes 1+; Immature Granulocytes # (auto) 0.02 K/uL (0.00-0.02); Immature Granulocytes % (auto) 0.2 %; Lymphocytes # (auto) 0.25 K/uL (1.2-3.4); Lymphocytes % (auto) 2.6 %; Monocytes # (auto) 0.23 K/uL (0.24-0.82); Monocytes % (auto) 2.4 %; Neutrophils # (auto) 9.27 K/uL (1.4-6.5); Neutrophils % (auto) 94.7 %
[2022-04-16 10:01] LABS: Albumin Level 2.8 gm/dl (3.4-5.0); BUN Creatinine Ratio 35.3 (10-20); Calcium 9.2 mg/dl (8.5-10.1); Creatinine Clr Calc Pharmacy 38.1 ml/min; Est GFR (African American) 51.2 ml/min; Est GFR (Non-African American) 44.1 ml/min; Globulin 2.9 gm/dl (2.5-4.0); Magnesium 1.9 mg/dl (1.7-2.4); Potassium 3.9 mmol/L (3.5-5.1); Total Protein 5.7 gm/dl (6.0-8.3)
--- NOTE | 2022-04-16 10:55 | Electrocardiogram Report ---
Test Reason : Blood Pressure : / mmHG Vent. Rate : 070 BPM Atrial Rate : 070 BPM P-R Int : 188 ms QRS Dur : 104 ms QT Int : 426 ms P-R-T Axes : 037 -07 005 degrees QTc Int : 460 ms Normal sinus rhythm Normal ECG When compared with ECG of 15-APR-2022 05:35, No significant change was found Confirmed by Son Ramon ([id number]) on 04/16/2022 10:55:15 AM Referred By: Srini Cordero Confirmed By:Sameer Ramon
--- NOTE | 2022-04-16 11:18 | Pharmacy Report ---
Pharmacy Glycemic Short Note 2 - Date of Service April 16, 2022 - Glycemic Short BSG Results (Last 24 hours): 04/15/22 04/15/22 04/15/22 11:50 13:44 15:20 Glucose POC Glucose 444 H* 440 H* 464 H* 04/15/22 04/15/22 04/15/22 16:22 17:12 18:14 Glucose POC Glucose 348 H* 305 H* 261 H 04/15/22 04/15/22 04/15/22 19:16 20:13 21:14 Glucose POC Glucose 211 H 155 H 137 H 04/15/22 04/15/22 04/15/22 22:12 23:09 23:33 Glucose POC Glucose 125 H 86 84 04/15/22 04/16/22 04/16/22 23:47 00:25 01:23 Glucose POC Glucose 91 202 H 233 H 04/16/22 04/16/22 04/16/22 02:19 03:22 04:22 Glucose POC Glucose 222 H 207 H 172 H 04/16/22 04/16/22 04/16/22 05:25 06:25 07:37 Glucose POC Glucose 157 H 153 H 171 H 04/16/22 04/16/22 04/16/22 08:05 09:38 10:40 Glucose 161 H POC Glucose 207 H 112 H OUTPATIENT ANTIDIABETIC REGIMEN: * Levemir 8 units HS * Novolog 20 units with meals * (HM) prednisone 5 mg daily ASSESSMENT: 04/16/22 * Patient has been maintained on insulin drip, rate down to 1.8units/hr this morning, and now on hold * Basal on board yesterday, continue daily and overlap with insulin drip to transition to SQ only * Continues on Dexamethasone 6mg IV daily 04/15/22 * Mr Vega is a 72 y/o M with a PMH of T2DM who presents with COVID. * BSG on admission, prior to dexamethasone, was 183 mg/dL. * In evening of 04/14/22, patient received dexamethasone 10 mg x 1. Now ordered dexamethasone 6 mg IV daily. * BSG in AM of 04/15/22 was 454 mg/dL. Pharmacy consulted for glycemic management. * Started Lantus 25 units (full weight-based stress of 2/3) + Novolog with CR tighter than weight-based stress of 3. Suspected patient very sensitive to steroids due to large Novolog doses at home on prednisone 5 mg daily. * 5 unit IV bolus given (0.1 unit/kg). * Lunch BSG did not improve and carbohydrate ratio tightened even further. Additional 5 unit IV bolus started. * A check was ordered for 2 hours after lunch as BSGs remained > 400 mg/dL. This check was again > 400 mg/dL. Hyperglycemia has been sustained > 6 hours so a call was placed to provider for approval insulin infusion. This was okay'ed. Notified provider to consider potassium supplementation at K only 3.9 on PRP this AM. * Fixed carbohydrate ratio of 1 unit per 4 grams of carbohydrates consumed. PLAN FOR INPATIENT GLYCEMIC CONTROL: * DC insulin drip * Basal insulin * Lantus 35 units SQ daily * Bolus insulin * NovoLog per scale ACHS or Q6hrs while NPO * Goal Range: Low 110 mg/dL - High 140 mg/dL * Correction Factor: 15 mg/dL/unit * Nutritional / Prandial insulin per carb ratio of 1 unit per 4 grams CHO consumed
--- NOTE | 2022-04-16 18:01 | Discharge Summary ---
Date of Service April 16, 2022 Admission HPI Per Admitting Provider The patient is a 72-year-old male with a past medical history including myofascial pain syndrome, chronic anticoagulation, idiopathic polyneuropathy, carotid stenosis, lumbar radicular pain, CAD, hypertension, status post bilateral BKA's, diabetes mellitus, BPH, GERD, hearing loss, kidney transplant status, hypertension and CVA. He presents with symptoms as noted above. Work-up in the emergency department included the following abnormal laboratories: Sodium 127, potassium 3.3, creatinine 1.22, glucose 183, highly sensitive troponin 28.6, albumin 3.1. COVID-19 testing was positive this evening. Chest x-ray showed bibasilar mixed interstitial and alveolar opacities suggestive of infectious or inflammatory pneumonitis such as viral pneumonia Discharge Data Allergies Allergy/AdvReac Type Severity Reaction Status Date / Time hydromorphone [From Dilaudid] Allergy Severe Respiratory Verified 04/14/22 21:04 Arrest gabapentin Allergy Unknown Unknown Verified 04/14/22 21:04 Consultations 04/14/22 22:13 ED Decision to Admit Stat Hospital Course (1) Acute respiratory failure with hypoxia: Acute respiratory failure with hypoxia/secondary bacterial pneumonia/COVID-19 infection- Received dexamethasone 10 mg IV and ceftriaxone 2 g IV from the ED Dexamethasone 6 mg IV every morning Ceftriaxone 2 g IV daily Azithromycin 500 mg IV daily Combivent Respimat 2 puffs 4 times daily DuoNebs every 2 hours as needed Guaifenesin extended release 1200 mg p.o. twice daily Vitamin D 5000 international units p.o. every morning Zinc sulfate turn 20 mg p.o. every morning (2) Secondary bacterial pneumonia: Patient symptoms of worsening infection over the past week, suggestive of secondary bacterial pneumonia, treatment as above (3) COVID-19 virus infection: See above (4) Acute hyponatremia: Sodium 127 upon admission Serum osmolality and urine osmolality pending Follow laboratory serially (5) Transplanted kidney: Continue cyclosporine, mycophenolate Aggressive treatment of pulmonary status to the immunosuppressed state (6) Diabetes mellitus: Continue Levemir 8 units subcu every afternoon Hold standing order for insulin aspart 20 units [address] on Accu-Cheks before meals and at bedtime with NovoLog coverage per scale Check hemoglobin A1c (7) Gastroesophageal reflux disease: Continue Nexium/pantoprazole (8) Hypercholesterolemia: Continue atorvastatin 40 mg daily (9) Hypertension: Carotid stenosis/CVA/Hypertension- Continue amlodipine, aspirin, clopidogrel, and metoprolol tartrate (10) Stroke: See above (11) Idiopathic polyneuropathy: See above Discharge Plan Discharge Items Patient Disposition: Against Medical Advice Reason For Visit: ACUTE RESP FAIL W/ HYPOXIA,COVID 19,BACTERIAL PNX Activity: Resume your previous activity Non-emergency contact: Primary Care Provider Follow-up/Referrals: Srini Cordero MD [Primary Care Provider] - Pending Studies at Discharge: No Stand-Alone Forms: My [facility], Smoking Cessation Medications and DC Order Prescriptions: New doxycycline hyclate 100 mg tablet 100 mg PO BID 3 Days Qty: 6 0RF Rx Instructions: hold zinc while on this medicine start tomorrow cefpodoxime 200 mg tablet 200 mg PO BID Qty: 6 0RF Rx Instructions: must administer with a meal/food start tomorrow on 04/17/22 dexamethasone 6 mg tablet 6 mg PO DAILY Qty: 7 0RF Rx Instructions: start tomorrow on 04/17 take one tablet daily for 7 days. Continued baclofen 10 mg tablet 10 mg PO BID PRN (Reason: spasms) Qty: 60 0RF hydrocodone-acetaminophen 5-325 mg tablet 1 tab PO BID PRN (Reason: pain) Qty: 30 0RF Rx Instructions: ONGOING THERAPY mycophenolate mofetil 500 mg tablet 1,000 mg PO BID Qty: 360 3RF insulin aspart U-100 [Novolog U-100 Insulin aspart] 100 unit/mL solution 20 unit subcut TID Qty: 60 3RF (DME) FreeStyle Devin 14 Day Sensor Kit See Rx Instructions .Route Qty: 6 3RF Rx Instructions: use for continuous glucose monitoring molnupiravir 200 mg capsule 800 mg PO Q12H 5 Days Qty: 40 0RF Rx Instructions: STARTED 04/10/22 FOR 5 DAYS. cyclosporine modified 100 mg capsule 100 mg PO BID Qty: 180 3RF fludrocortisone 0.1 mg tablet 0.1 mg PO QAM Qty: 90 3RF clopidogrel 75 mg tablet 75 mg PO QAM Qty: 90 3RF amlodipine 5 mg tablet 5 mg PO QAM Qty: 90 3RF (DME) insulin syringe-needle U-100 [BD Insulin Syringe Ultra-Fine] 0.5 mL 30 gauge x 1/2" syringe See Dose Instructions .ROUTE .MEDSUPPLY Qty: 800 2RF Rx Instructions: As directed glucagon HCl 1 mg recon soln 0 mcg/kg IM UD PRN (Reason: Hypoglycemia) Qty: 2 prednisone 5 mg tablet 5 mg PO DAILY Qty: 90 3RF esomeprazole magnesium 40 mg capsule,delayed release(DR/EC) 40 mg PO QPM Qty: 90 3RF tamsulosin 0.4 mg capsule 0.4 mg PO QPM Qty: 90 3RF atorvastatin 40 mg tablet 40 mg PO QPM Qty: 90 3RF metoprolol tartrate 50 mg tablet 50 mg PO BID Qty: 180 3RF ofloxacin 0.3 % drops 5 drp otic (ear) BID 10 Days Qty: 10 1RF Rx Instructions: Left ear: 5 drops BID x 10-days then 5 drops to every other day until follow- up. aspirin 81 mg Tablet,Delayed Release (Dr/Ec) 81 mg PO QAM acetaminophen [Tylenol Extra Strength] 500 mg Tablet 1,000 mg PO Q6H PRN (Reason: Pain) Levemir U-100 Insulin 100 unit/mL solution 8 unit SQ QPM ergocalciferol (vitamin D2) 1,250 mcg (50,000 unit) capsule 1,250 mcg PO WK hydrocodone-acetaminophen 5-325 mg tablet 1 tab PO BID PRN (Reason: Pain) Discharge Orders: Left Against Medical Advice (Routine); Ordered 04/16/22 Ordered By: Sami Caballero Admission Data Admit Date/Time: 04/15/22 00:00 Attending Provider: Sami Caballero Admit Provider: Venkat Staples Primary Care Provider: Srini Cordero Other Providers: Venkat Staples Coding Diagnoses Acute respiratory failure with hypoxia J96.01 Secondary bacterial pneumonia J15.9 COVID-19 virus infection U07.1 Acute hyponatremia E87.1 Transplanted kidney Z94.0 Diabetes mellitus E11.9 Gastroesophageal reflux disease K21.9 Hypercholesterolemia E78.00 Hypertension I10 Stroke I63.9 Idiopathic polyneuropathy G60.9
[2022-04-17] MEDS ORDERED: INSULIN ASPART PER UNIT SC ONE (02:00)
== END 2022-04-16 18:06 | disposition left against medical advice (07) | DRG 177 ==
LOC: ED 17:35 → SUATTDRO 04-15 → 2S 04-15
DX: E11.42 Type 2 diabetes mellitus with diabetic polyneuropathy; K21.9 Gastro-esophageal reflux disease without esophagitis; I25.10 Atherosclerotic heart disease of native coronary artery without angina pectoris; I12.9 Hypertensive chronic kidney disease with stage 1 through stage 4 chronic kidney disease, or unspecified chronic kidney disease; Z79.01 Long term (current) use of anticoagulants; J12.82 Pneumonia due to coronavirus disease 2019; U07.1 COVID-19; Z95.5 Presence of coronary angioplasty implant and graft; Z79.4 Long term (current) use of insulin; Z94.0 Kidney transplant status; E87.1 Hypo-osmolality and hyponatremia; Z88.5 Allergy status to narcotic agent; Z86.73 Personal history of transient ischemic attack (TIA), and cerebral infarction without residual deficits; J15.9 Unspecified bacterial pneumonia; E11.22 Type 2 diabetes mellitus with diabetic chronic kidney disease; J96.01 Acute respiratory failure with hypoxia; N18.9 Chronic kidney disease, unspecified; Z89.511 Acquired absence of right leg below knee; Z89.512 Acquired absence of left leg below knee

== ENCOUNTER 2022-04-18 11:53 | Inpatient (IN) ==
--- NOTE | 2022-04-18 12:24 | Emergency Department Note ---
Impression & Plan Weakness, Transplanted kidney, Pneumonia due to 2019 novel coronavirus, Chest pain, Cough ED Provider Note Provider: Joey Rodriguez MD DATE OF SERVICE: 04/18/2022 CHIEF COMPLAINT: Shortness of breath, COVID, chest pain HISTORY OF PRESENT ILLNESS: Patient is a 72-year-old gentleman history of polyneuropathy, carotid stenosis, CAD, hypertension, bilateral BKA's, diabetes, kidney transplant, CVA, hypertension, and recent hospitalization here at the beginning of the week for COVID-related symptoms including hyponatremia presenting here via ambulance from his home. Patient states he signed out himself 2 days ago and went home. Has been having since prior hospitalization some on and off mild dull left-sided chest ache. This morning however this occurred somewhat worsened as well as worsening shortness of breath. Patient denies any falls or trauma. Denies fever. States he has not been eating or drinking that well but denies significant nausea or vomiting. Denies diarrhea. States he is still making urine. Patient states he is taking the medicine he was sent home on and the records indicate this includes doxycycline, cefpodoxime, and dexamethasone. Patient is previously vaccinated for COVID. Patient reports that he is having some improvement since nebulizer with EMS. REVIEW OF SYSTEMS: A total of 10 review of systems was obtained and negative except as stated above in the HPI. PAST MEDICAL HISTORY: As noted above MEDICATIONS: Reviewed home medication list SOCIAL HISTORY: Patient denies smoking lives at home with his PHYSICAL EXAM: GENERAL: alert and oriented in no acute distress on stretcher although fatigued in appearance Head: normocephalic and atraumatic EYES: No injection, discharge or icterus. NECK: Trachea midline. ENT: Mucous membranes pink and moist. LUNGS: Airway patent. No retractions. Breath sounds coarse slight tachypnea HEART: Regular rate and rhythm. No chest wall tenderness ABDOMEN: Soft and non-tender, without guarding or rebound. No hepatosplenomegaly or masses BACK: No midline tenderness, no SI joint tenderness. No bilateral flank tenderness. SKIN: Acyanotic, warm, dry, without rashes EXTREMITIES: Without swelling, tenderness or deformity NEUROLOGICAL: No focal deficits. No aphasia. No facial droop or slurred speech. Ambulatory. EK bpm sinus rhythm with sinus arrhythmia. No PVC noted. No acute ST segment elevation noted with some artifact in V3. QTc 429. Normal axis. CONTINUOUS CARDIAC MONITORING: was ordered and showed a heart rate of 70s-80s bpm in Normal sinus rhythm with sinus arrhythmia Patient's laboratory studies and imaging reviewed. Differential includes Reactive airway disease, pneumonia, pneumothorax, COPD, CHF, infections, cardiac ischemia, pulmonary embolism, musculoskeletal, gastr ointestinal, as well as other pathologies. IMPRESSION/MEDICAL DECISION MAKING: Reviewed recent records from hospitalization here. History of renal transplant with COVID and possible bacterial pneumonia. Hyponatremic upon prior evaluation. Patient not significantly hypoxic upon arrival here. Symptoms have improved some since nebulizer with EMS although he states he is not a smoking history. No trauma history likely. EKG and troponin were sent. Chest x-ray obtained. Basic labs obtained. No evidence of significant heart failure on clinical exam or evidence of DVT. Patient blood work without anemia and white blood cell count slightly improved compared to several days ago at 7.8. Chest x-ray obtained today still with some finding concerning for left lower lobe pneumonia and some possible opacity in the right base. Renal function with some improvement as well as some improvement of the hyponatremia. I sensitive troponins improved. Still with some CRP elevation but no priors for comparison. Procalcitonin 0.37. reports he has been taking steroids and antibiotics including this morning. Intermittent episodes of hiccups for the several days to. Not doing well at home. Discussed with patient and his at bedside. Not hypoxic here but quite fatigued. Home blood work seems to trend some improvement. Systemically fatigued and not doing so well. Chest pain again has improved since several episodes earlier. Given some Mucinex as well as Tessalon Perles to help with cough and some additional albuterol here as he had improvement on the way in with EMS. Given his significant difficulties at home with symptoms we will discussed with the hospitalist for observation. DIAGNOSIS: Weakness, COVID-19, chest pain, sob DISPOSITION: Hospitalist will evaluate Patient was agreeable with this plan. Past Med/Surg History Medical History Arthritis Atherosclerosis of [place] coronary artery without angina pectoris Benign hypertension CAD (coronary artery disease) stent x 1 (2007) Carotid artery stenosis s/p left carotid endarterectomy (1996) Neck MRA (04/29/21): Over 70% stenosis within proximal aspect of the right internal carotid artery. Minimal, less than 50% stenosis is seen within distal aspect of the left internal carotid artery. Chronic back pain Chronic kidney disease s/p kidney transplant (2000) Chronic left hip pain Diabetes mellitus IDDM Enlarged prostate without lower urinary tract symptoms (luts) Gastroesophageal reflux disease Hearing loss Heart attack 2007 Hiatal hernia Hypercholesterolemia Hypertension Rx'd fludrocortisone for previous hypotension (? orthostatic) Lumbar radicular pain Lumbar spondylosis Myofascial pain Stroke CVA (1996) TIA (04/23/21) Surgical History H/O left wrist surgery History of anesthesia reaction Hallucinations, combative History of cardiac cath stent x 1 (2007) History of carotid endarterectomy 1996 (right) History of esophagogastroduodenoscopy (EGD) History of hip surgery Right ORIF Kidney replaced by transplant S/P bilateral BKA (below knee amputation) Status post carotid surgery Left (1996) Transplanted kidney 2000 Family History Father Hearing loss Heart disease Family history of diabetes mellitus Mother Hypertension Family history of diabetes mellitus Other No family history of adverse response to anesthesia No family history of bleeding disorder Denies family history of Ovarian cancer Prostate cancer Myocardial infarction Breast cancer Colorectal cancer Social History Smoking Status: Unknown if ever smoked Tobacco Type: Smokeless Tobacco (Dip or Chew) Second Hand Exposure: No; Hx Alcohol Use: Yes Alcohol type: beer Hx Substance Use: No Preferred Language: Faroese Communication Ability: Effective Visual Impairment: Severely Limited Hearing Ability: Hard of Hearing Log Peeler Required: No Beliefs That Will Affect Care: None marital status: Current Living Situation: Spouse current occupational status: retired Feels Safe at Home: Yes Childhood Exposure to Second-Hand Smoke: No Dental Care, Regularly: No Physical Activity Frequency: Does not Exercise Seatbelt Use: always Sunscreen Use: No Assistive Devices: Cane and Walker Allergies Allergies Allergy/AdvReac Type Severity Reaction Status Date / Time hydromorphone [From Dilaudid] Allergy Severe Respiratory Verified 04/18/22 16:03 Arrest gabapentin Allergy Unknown Unknown Verified 04/18/22 16:03 Home Meds Home Medications Medication Instructions Recorded Confirmed glucagon HCl 1 mg/mL solution for 0 mcg/kg IM UD PRN Hypoglycemia #2 06/14/19 04/18/22 injection ea aspirin 81 mg tablet,delayed 81 mg PO QAM 12/09/19 04/18/22 release acetaminophen 500 mg tablet 1,000 mg PO Q6H PRN Pain 04/24/21 04/18/22 (Tylenol Extra Strength) insulin detemir U-100 100 unit/mL 8 unit subcut QPM 05/31/21 04/18/22 subcutaneous solution (Levemir U-100 Insulin) ergocalciferol (vitamin D2) 1,250 1,250 mcg PO WK 04/14/22 04/18/22 mcg (50,000 unit) capsule insulin aspart U-100 100 unit/mL 20 unit subcut TIDM 04/18/22 04/18/22 subcutaneous solution (Novolog U-100 Insulin aspart) Previous Rx's Medication Instructions Recorded insulin syringe-needle U-100 0.5 #800 ea 02/03/20 mL 30 gauge x 1/2" (BD Insulin Syringe Ultra-Fine) mycophenolate mofetil 500 mg tablet 1,000 mg PO BID #360 tabs 07/22/21 prednisone 5 mg tablet 5 mg PO DAILY #90 tabs 08/27/21 atorvastatin 40 mg tablet 40 mg PO QPM #90 tabs 08/28/21 esomeprazole magnesium 40 mg 40 mg PO QPM #90 caps 08/28/21 capsule,delayed release tamsulosin 0.4 mg capsule 0.4 mg PO QPM #90 caps 08/28/21 FreeStyle Devin 14 Day Sensor #6 ea 11/05/21 (flash glucose sensor) amlodipine 5 mg tablet 5 mg PO QAM #90 tabs 11/26/21 clopidogrel 75 mg tablet 75 mg PO QAM #90 tabs 11/26/21 fludrocortisone 0.1 mg tablet 0.1 mg PO QAM #90 tabs 11/26/21 metoprolol tartrate 50 mg tablet 50 mg PO BID #180 tabs 04/01/22 baclofen 10 mg tablet 10 mg PO BID PRN spasms #60 tabs 04/08/22 hydrocodone 5 mg-acetaminophen 325 1 tab PO BID PRN pain #30 tabs 04/08/22 mg tablet cefpodoxime 200 mg tablet 200 mg PO BID #6 tabs 04/16/22 cyclosporine modified 100 mg 100 mg PO BID #180 caps 04/16/22 capsule dexamethasone 6 mg tablet 6 mg PO DAILY #7 tabs 04/16/22 doxycycline hyclate 100 mg tablet 100 mg PO BID 3 days #6 tabs 04/16/22 Results & Data (ED) Vital Signs Vital Signs - 24 hr 04/18/22 11:55 04/18/22 12:12 04/18/22 12:25 Temperature 37.1 C Temperature Source Oral Pulse Rate 78 Pulse Rate [Right Finger] Respiratory Rate 20 Respiratory Effort / Characteristics Non-Labored Spontaneous Respiratory Depth Normal Normal Respiratory Pattern Regular Blood Pressure 165/74 H Blood Pressure [Right Arm] Blood Pressure Mean 104 Blood Pressure Mean [Right Arm] Pulse Oximetry 98 95 Oxygen Delivery Method Room Air Room Air Room Air Sepsis Recent Fever Within 48 Hours No Sepsis New/Unexplained Change in Mental Status N/A Sepsis Action Taken by Nursing No Action Required 04/18/22 12:30 04/18/22 13:00 04/18/22 14:19 Temperature Temperature Source Pulse Rate Pulse Rate [Right Finger] 72 76 76 Respiratory Rate 20 22 20 Respiratory Effort / Characteristics Non-Labored Non-Labored Non-Labored Respiratory Depth Normal Normal Normal Respiratory Pattern Blood Pressure Blood Pressure [Right Arm] 175/59 H 183/64 H 163/91 H Blood Pressure Mean Blood Pressure Mean [Right Arm] 97 103 115 Pulse Oximetry 96 92 92 Oxygen Delivery Method Room Air Room Air Room Air Sepsis Recent Fever Within 48 Hours Sepsis New/Unexplained Change in Mental Status Sepsis Action Taken by Nursing Laboratory Data Result diagrams: 04/18/22 12:10 04/18/22 12:51 Lab Results 04/18/22 04/18/22 04/18/22 Range/Units 12:10 12:10 12:10 WBC 7.83 (4.8-10.8) K/ul RBC 5.01 (4.63-6.08) M/uL Hgb 15.3 (14.0-18.0) g/dl Hct 43.9 (40.1-51.0) % MCV 87.6 (80.0-100.0) fL MCH 30.5 (25.0-34.0) pg MCHC 34.9 (32.0-36.0) g/dL RDW Std Deviation 50.4 H (36.4-46.3) fL RDW Coeff of Natacha 18.6 H (11.5-14.5) % Plt Count 210 (130-400) K/uL MPV 13.1 H (9.4-12.4) fL Immature Gran % (Auto) 0.5 % Neut % (Auto) 93.6 % Lymph % (Auto) 1.9 % [place] % (Auto) 4.0 % Eos % (Auto) 0.0 % Baso % (Auto) 0.0 % Neut # (Auto) 7.33 H (1.4-6.5) K/uL Lymph # (Auto) 0.15 L (1.2-3.4) K/uL [place] # (Auto) 0.31 (0.24-0.82) K/uL Eos # (Auto) 0.00 (0-0.50) K/uL Baso # (Auto) 0.00 (0-0.2) K/uL Immature Gran # (Auto) 0.04 H (0.00-0.02) K/uL PT Cancelled INR Cancelled APTT Cancelled PTT Ratio Cancelled Sodium Cancelled Potassium Cancelled Chloride Cancelled Carbon Dioxide Cancelled Anion Gap Cancelled BUN Cancelled Creatinine Cancelled Est Cr Clr Drug Dosing Cancelled Est GFR ( Amer) Cancelled Est GFR (Non-Af Amer) Cancelled BUN/Creatinine Ratio Cancelled Glucose Cancelled Calcium Cancelled Total Bilirubin Cancelled AST Cancelled ALT Cancelled Alkaline Phosphatase Cancelled Troponin I High Sens Cancelled C-Reactive Protein (0-0.5) mg/dl Total Protein Cancelled Albumin Cancelled Globulin Cancelled Albumin/Globulin Ratio Cancelled Lipase Cancelled Procalcitonin (0-0.5) ng/ml 04/18/22 04/18/22 04/18/22 Range/Units 12:51 12:51 12:51 WBC (4.8-10.8) K/ul RBC (4.63-6.08) M/uL Hgb (14.0-18.0) g/dl Hct (40.1-51.0) % MCV (80.0-100.0) fL MCH (25.0-34.0) pg MCHC (32.0-36.0) g/dL RDW Std Deviation (36.4-46.3) fL RDW Coeff of Natacha (11.5-14.5) % Plt Count (130-400) K/uL MPV (9.4-12.4) fL Immature Gran % (Auto) % Neut % (Auto) % Lymph % (Auto) % [place] % (Auto) % Eos % (Auto) % Baso % (Auto) % Neut # (Auto) (1.4-6.5) K/uL Lymph # (Auto) (1.2-3.4) K/uL [place] # (Auto) (0.24-0.82) K/uL Eos # (Auto) (0-0.50) K/uL Baso # (Auto) (0-0.2) K/uL Immature Gran # (Auto) (0.00-0.02) K/uL PT 10.8 INR 1.0 APTT 28.6 PTT Ratio 1.0 Sodium Potassium Chloride Carbon Dioxide Anion Gap BUN Creatinine Est Cr Clr Drug Dosing Est GFR ( Amer) Est GFR (Non-Af Amer) BUN/Creatinine Ratio Glucose Calcium Total Bilirubin AST ALT Alkaline Phosphatase Troponin I High Sens C-Reactive Protein 4.40 H (0-0.5) mg/dl Total Protein Albumin Globulin Albumin/Globulin Ratio Lipase Procalcitonin 0.37 (0-0.5) ng/ml 04/18/22 Range/Units 12:51 WBC (4.8-10.8) K/ul RBC (4.63-6.08) M/uL Hgb (14.0-18.0) g/dl Hct (40.1-51.0) % MCV (80.0-100.0) fL MCH (25.0-34.0) pg MCHC (32.0-36.0) g/dL RDW Std Deviation (36.4-46.3) fL RDW Coeff of Natacha (11.5-14.5) % Plt Count (130-400) K/uL MPV (9.4-12.4) fL Immature Gran % (Auto) % Neut % (Auto) % Lymph % (Auto) % [place] % (Auto) % Eos % (Auto) % Baso % (Auto) % Neut # (Auto) (1.4-6.5) K/uL Lymph # (Auto) (1.2-3.4) K/uL [place] # (Auto) (0.24-0.82) K/uL Eos # (Auto) (0-0.50) K/uL Baso # (Auto) (0-0.2) K/uL Immature Gran # (Auto) (0.00-0.02) K/uL PT INR APTT PTT Ratio Sodium 133 L Potassium 3.9 Chloride 100 Carbon Dioxide 26 Anion Gap 7 BUN 25 H Creatinine 0.75 Est Cr Clr Drug Dosing Not Reportable Est GFR ( Amer) 104.7 Est GFR (Non-Af Amer) 90.4 BUN/Creatinine Ratio 33.3 H Glucose 163 H Calcium 9.0 Total Bilirubin 0.9 AST 49 H ALT 21 Alkaline Phosphatase 66 Troponin I High Sens 14.1 D C-Reactive Protein (0-0.5) mg/dl Total Protein 5.5 L Albumin 2.8 L Globulin 2.7 Albumin/Globulin Ratio 1.0 Lipase 6 L Procalcitonin (0-0.5) ng/ml Administered Medications Discontinued Medications Albuterol (Albuterol Hfa 8 Gm Inhaler) 4 puffs INH NOW ONE Stop: 04/18/22 14:18 Last Admin: 04/18/22 15:04 Dose: 4 puffs Documented By: GRACE Benzonatate (Benzonatate 100 Mg Capsule) 100 mg PO NOW ONE Stop: 04/18/22 14:19 Last Admin: 04/18/22 15:03 Dose: 100 mg Documented By: GRACE Guaifenesin (Guaifenesin 600 Mg Tabcr) 1,200 mg PO ONCE ONE Stop: 04/18/22 14:19 Last Admin: 04/18/22 15:03 Dose: 1,200 mg Documented By: GRACE Ceftriaxone Sodium (Rocephin) 1,000 mg in 50 mls @ 100 mls/hr IV NOW STA Stop: 04/18/22 16:11 Last Infusion: 04/18/22 18:46 Dose: 0 mls/hr Documented By: Admin: 04/18/22 18:13 Dose: 100 mls/hr Documented By: GRACE Azithromycin 500 mg/ Dextrose 255 mls @ 127.5 mls/hr IV NOW STA Stop: 04/18/22 17:41 Last Infusion: 04/18/22 18:46 Dose: 0 mls/hr Documented By: AKKarl Admin: 04/18/22 15:59 Dose: 127.5 mls/hr Documented By: MASSIEL Ioversol (Optiray 320 125ml) 120 ml IV ONCE ONE Stop: 04/18/22 17:06 Last Admin: 04/18/22 17:06 Dose: 120 ml Documented By: EDK Imaging Data Radiologist's Impression: Chest X-Ray 04/18/22 12:14 SINGLE VIEW CHEST CLINICAL HISTORY: Atypical chest pain. Covid. Dyspnea. FINDINGS: An AP, portable, upright chest radiograph is compared to study dated 04/14/2022 and correlated with chest CT dated 12/09/2019. The cardiomediastinal silhouette is unremarkable noting atherosclerotic calcification of the thoracic aorta. There is left basilar airspace consolidation. Minimal opacities are seen at the right lung base. No large pleural effusion or pneumothorax is seen. The skeletal structures are osteopenic. The bony thorax is grossly intact. Degenerative change is noted in the shoulders and thoracic spine. IMPRESSION: 1. There is left basilar consolidation, typical for pneumonia/aspiration pneumonitis. Clinical correlation will be required and radiographic follow-up to resolution is recommended. 2. Minimal airspace opacities are also seen at the right lung base. ACT 112: Negative or not required by law. Electronically signed by: Nicolas Ervin M.D. 04/18/2022 12:49 PM Discharge Plan Visit Data Chief Complaint: Shortness of Breath/Dyspnea Stated Complaint: CHEST PAIN, COVID + ED Provider: Joey Rodriguez Discharge Problem: Weakness, Transplanted kidney, Pneumonia due to 2019 novel coronavirus, Chest pain, Cough Patient Disposition: Being Evaluated by Hospitalist Discharge Instructions Interventions: ED Discharge Assessment Last Done: 04/18/22 18:00 : Chest pain Qualifiers: Chest pain type: unspecified Qualified Code(s): R07.9 - Chest pain, unspecified Cough Qualifiers: Cough type: acute Qualified Code(s): R05.1 - Acute cough
[2022-04-18 12:25] LABS: Hematocrit (blood only) 43.9 % (40.1-51.0); Hemoglobin 15.3 g/dl (14.0-18.0); Mean Corpuscular Hemoglobin 30.5 pg (25.0-34.0); Mean Corpuscular Hgb Conc 34.9 g/dL (32.0-36.0); Mean Corpuscular Volume 87.6 fL (80.0-100.0); RDW Coefficient of Variation 18.6 % (11.5-14.5); RDW Standard Deviation 50.4 fL (36.4-46.3); Red Blood Count 5.01 M/uL (4.63-6.08); White Blood Count 7.83 K/ul (4.8-10.8)
[2022-04-18 12:38] LABS: Mean Platelet Volume 13.1 fL (9.4-12.4); Platelet Count 210 K/uL (130-400)
--- NOTE | 2022-04-18 12:51 | XRay Report ---
SINGLE VIEW CHEST CLINICAL HISTORY: Atypical chest pain. Covid. Dyspnea. FINDINGS: An AP, portable, upright chest radiograph is compared to study dated 04/14/2022 and correlate d with chest CT dated 12/09/2019. The cardiomediastinal silhouette is unremarkable noting atherosclero tic calcification of the thoracic aorta. There is left basilar airspace consolidation. Minimal opacit ies are seen at the right lung base. No large pleural effusion or pneumothorax is seen. The skeletal structures are osteopenic. The bony thorax is grossly intact. Degenerative change is noted in the abe ulders and thoracic spine. IMPRESSION: 1. There is left basilar consolidation, typical for pneumonia/aspiration pneumonitis. Clinical correl ation will be required and radiographic follow-up to resolution is recommended. 2. Minimal airspace opacities are also seen at the right lung base. ACT 112: Negative or not required by law. Electronically signed by: Nicolas Ervin M.D. 04/18/2022 12:49 PM
[2022-04-18 13:06] LABS: Immature Granulocytes # (auto) 0.04 K/uL (0.00-0.02); Immature Granulocytes % (auto) 0.5 %; Lymphocytes # (auto) 0.15 K/uL (1.2-3.4); Lymphocytes % (auto) 1.9 %; Monocytes # (auto) 0.31 K/uL (0.24-0.82); Neutrophils # (auto) 7.33 K/uL (1.4-6.5); Neutrophils % (auto) 93.6 %
[2022-04-18 13:28] LABS: Partial Thromboplastin Time 28.6 Seconds (21.0-31.0); Prothrombin Time 10.8 Seconds (9.0-12.0)
[2022-04-18 13:45] LABS: Troponin I High Sensitivity 14.1 pg/ml (0-20)
[2022-04-18 13:53] LABS: Alanine Aminotransferase 21 U/L (7-52); Albumin Level 2.8 gm/dl (3.4-5.0); Alkaline Phosphatase 66 U/L (34-104); Anion Gap 7 (3-11); Aspartate Aminotransferase 49 U/L (13-39); BUN Creatinine Ratio 33.3 (10-20); Bilirubin,Total 0.9 mg/dl (0.2-1.0); Blood Urea Nitrogen 25 mg/dl (6-23); Carbon Dioxide 26 mmol/L (21-32); Chloride 100 mmol/L (98-107); Est GFR (African American) 104.7 ml/min; Est GFR (Non-African American) 90.4 ml/min; Globulin 2.7 gm/dl (2.5-4.0); Glucose 163 mg/dl (70-99(Fasting)); Lipase 6 U/L (11-82); Potassium 3.9 mmol/L (3.5-5.1); Sodium 133 mmol/L (136-145); Total Protein 5.5 gm/dl (6.0-8.3)
[2022-04-18] MEDS ORDERED: ALBUTEROL HFA 8 GM INHALER INH ONE (14:17)
[2022-04-18] MEDS ORDERED: guaiFENesin 600 MG TABCR PO ONE (14:18)
[2022-04-18] MEDS ORDERED: BENZONATATE 100 MG CAPSULE PO ONE (14:18)
--- NOTE | 2022-04-18 14:27 | History & Physical Report ---
Date of Service April 18, 2022 Assessment & Plan (1) COVID-19 virus infection: Plan: - Symptoms began over a week ago on 04/08, tested positive on 04/10. - Continues to be SOB with dull chest achiness seems to be exacerbated by his coughing. - Rocephin and azithromycin daily for secondary bacterial pneumonia. - IV dexamethasone 6 mg daily - Combivent respimat inhaler 4 times daily. - DuoNebs every 2 hours as needed. - Mucinex twice daily. - Tessalon Perles prn. (2) Secondary bacterial pneumonia: Plan: - Seen on CXR on admission 04/15 and again today. His WBC is improved today 7.83, was low on initial admission on 04/15 setting of viral illness (COVID). - Received 2 days of Rocephin and azithromycin, was sent home on 04/16 with doxycycline and cefpodoxime, completed 2 days of this. - Will restart Rocephin and azithromycin while in hospital. (3) Chest pain: Plan: - EKG NSR with sinus arrhythmia, no ST segment or T wave changes, hs trop 14.1 - Patient with acute chest pain during visit, troponin repeated and it is 14.6. EKG during chest pain episode showed normal sinus rhythm. CTA of chest checked for PE, did not identify such, showed patchy subpleural bibasilar predominant groundglass and consolidative opacities suggestive of viral pneumonia. (4) Acute hyponatremia: Plan: - Presented on 04/15 with sodium of 127, improvement, 133 today. - NSS @100 cc/hour for rehydration after poor p.o. intake with infection. (5) Hypertension: Plan: - Continue amlodipine 5 mg daily, metoprolol 50 mg twice daily. (6) Hypercholesterolemia: Plan: - Continue atorvastatin 40 mg daily. (7) Gastroesophageal reflux disease: Plan: - Continue PPI, switch to hospital formulary. (8) Diabetes mellitus: Plan: - Continue Levemir 8 units daily, with Accu-Cheks achs and SSI. (9) Transplanted kidney: Plan: - In 2000. - Continue anti-rejection medications. (10) Stroke: Plan: - In 1996. - Continue ASA plus Plavix, statin. (11) Carotid stenosis: Plan: - Continue ASA plus Plavix, statin. Plan - Obs on med/tele. - SCDs, Lovenox for VTE ppx. - Full Code. History of Present Illness Chief Complaint: shortness of breath, chest pain with recent COVID-19 infection. Primary Care Provider: Srini Cordero MD Alcides Vega is a 72-year-old male with a past medical history significant for renal transplant in 2000, DM2, neuropathy, CAD with stent in 2007, hyperlipidemia, hypertension peripheral BKA's, GERD, and CVA in 1996 who presents today via ambulance with left-sided chest pain and shortness of breath. Patient was recently seen and admitted to our hospital on 04/15 for COVID-19 infection with superimposed bacterial pneumonia. One day later on 04/16, he signed himself out AMA. He was discharged on doxycycline, cefpodoxime, and dexamethasone. Since he left hospital, he has had hard time eating and drinking at home, continues to be short of breath, and has the left-sided chest ache that has been present on and off prior to COVID diagnosis and worse after coughing. e is still urinating, has not had any fevers, nausea, vomiting, abdominal pain. Patient is vaccinated for COVID. In ED, he presents hypertensive 163/91, vital signs otherwise within normal limits, SPO2 >92%, HR 70s. Afebrile. Labs significant for sodium 133, CRP 4.40, procalcitonin 0.37. Glucose mildly elevated 163, AST 49. Renal function at baseline, improved since admission on 04/16. hs Trop 14.1. CXR shows left basilar consolidation typical for pneumonia or aspiration pneumonitis. ED course: Albuterol nebulizer treatment, Tessalon Tanvir, Mucinex. Allergies Allergy/AdvReac Type Severity Reaction Status Date / Time hydromorphone [From Dilaudid] Allergy Severe Respiratory Verified 04/18/22 16:03 Arrest gabapentin Allergy Unknown Unknown Verified 04/18/22 16:03 Home Medications Medication Instructions Recorded Confirmed Type glucagon HCl 1 mg/mL solution for 0 mcg/kg IM UD PRN Hypoglycemia #2 06/14/19 04/18/22 History injection ea aspirin 81 mg tablet,delayed 81 mg PO QAM 12/09/19 04/18/22 History release insulin syringe-needle U-100 0.5 #800 ea 02/03/20 04/17/22 Rx mL 30 gauge x 1/2" (BD Insulin Syringe Ultra-Fine) acetaminophen 500 mg tablet 1,000 mg PO Q6H PRN Pain 04/24/21 04/18/22 History (Tylenol Extra Strength) insulin detemir U-100 100 unit/mL 8 unit subcut QPM 05/31/21 04/18/22 History subcutaneous solution (Levemir U-100 Insulin) mycophenolate mofetil 500 mg tablet 1,000 mg PO BID #360 tabs 07/22/21 04/18/22 Rx prednisone 5 mg tablet 5 mg PO DAILY #90 tabs 08/27/21 04/18/22 Rx atorvastatin 40 mg tablet 40 mg PO QPM #90 tabs 08/28/21 04/18/22 Rx esomeprazole magnesium 40 mg 40 mg PO QPM #90 caps 08/28/21 04/18/22 Rx capsule,delayed release tamsulosin 0.4 mg capsule 0.4 mg PO QPM #90 caps 08/28/21 04/18/22 Rx FreeStyle Devin 14 Day Sensor #6 ea 11/05/21 04/17/22 Rx (flash glucose sensor) amlodipine 5 mg tablet 5 mg PO QAM #90 tabs 11/26/21 04/18/22 Rx clopidogrel 75 mg tablet 75 mg PO QAM #90 tabs 11/26/21 04/18/22 Rx fludrocortisone 0.1 mg tablet 0.1 mg PO QAM #90 tabs 11/26/21 04/18/22 Rx metoprolol tartrate 50 mg tablet 50 mg PO BID #180 tabs 04/01/22 04/18/22 Rx baclofen 10 mg tablet 10 mg PO BID PRN spasms #60 tabs 04/08/22 04/18/22 Rx hydrocodone 5 mg-acetaminophen 325 1 tab PO BID PRN pain #30 tabs 04/08/22 04/18/22 Rx mg tablet ergocalciferol (vitamin D2) 1,250 1,250 mcg PO WK 04/14/22 04/18/22 History mcg (50,000 unit) capsule cefpodoxime 200 mg tablet 200 mg PO BID #6 tabs 04/16/22 04/18/22 Rx cyclosporine modified 100 mg 100 mg PO BID #180 caps 04/16/22 04/18/22 Rx capsule dexamethasone 6 mg tablet 6 mg PO DAILY #7 tabs 04/16/22 04/18/22 Rx doxycycline hyclate 100 mg tablet 100 mg PO BID 3 days #6 tabs 04/16/22 04/18/22 Rx insulin aspart U-100 100 unit/mL 20 unit subcut TIDM 04/18/22 04/18/22 History subcutaneous solution (Novolog U-100 Insulin aspart) Past Med/Surg History Medical History Arthritis Atherosclerosis of [place] coronary artery without angina pectoris Benign hypertension CAD (coronary artery disease) stent x 1 (2007) Carotid artery stenosis s/p left carotid endarterectomy (1996) Neck MRA (04/29/21): Over 70% stenosis within proximal aspect of the right internal carotid artery. Minimal, less than 50% stenosis is seen within di stal aspect of the left internal carotid artery. Chronic back pain Chronic kidney disease s/p kidney transplant (2000) Chronic left hip pain Diabetes mellitus IDDM Enlarged prostate without lower urinary tract symptoms (luts) Gastroesophageal reflux disease Hearing loss Heart attack 2007 Hiatal hernia Hypercholesterolemia Hypertension Rx'd fludrocortisone for previous hypotension (? orthostatic) Lumbar radicular pain Lumbar spondylosis Myofascial pain Stroke CVA (1996) TIA (04/23/21) Surgical History H/O left wrist surgery History of anesthesia reaction Hallucinations, combative History of cardiac cath stent x 1 (2007) History of carotid endarterectomy 1996 (right) History of esophagogastroduodenoscopy (EGD) History of hip surgery Right ORIF Kidney replaced by transplant S/P bilateral BKA (below knee amputation) Status post carotid surgery Left (1996) Transplanted kidney 2000 Family History Father Hearing loss Heart disease Family history of diabetes mellitus Mother Hypertension Family history of diabetes mellitus Other No family history of adverse response to anesthesia No family history of bleeding disorder Denies family history of Ovarian cancer Prostate cancer Myocardial infarction Breast cancer Colorectal cancer Social History Smoking Status: Current some day smoker Tobacco Type: Smokeless Tobacco (Dip or Chew) Second Hand Exposure: No; Hx Alcohol Use: Yes Alcohol type: beer Hx Substance Use: No Preferred Language: Guatemalan Communication Ability: Effective Visual Impairment: Severely Limited Hearing Ability: Hard of Hearing Dietetic Tech Required: No Beliefs That Will Affect Care: None marital status: Current Living Situation: Spouse current occupational status: retired Feels Safe at Home: Yes Childhood Exposure to Second-Hand Smoke: No Dental Care, Regularly: No Physical Activity Frequency: Does not Exercise Seatbelt Use: always Sunscreen Use: No Assistive Devices: Cane and Walker Review of Systems Review of Systems: Constitutional: No fever/chills, weakness, fatigue, myalgias, anorexia, night sweats Eyes: No diplopia, no worsening or blurred vision ENT: normal hearing, no trouble swallowing Respiratory: Ongoing cough or shortness of breath with activity Cardiovascular: Chest pain with coughing, no radiation; no tightness or palpitations Abdomen: No pain, nausea, vomiting, diarrhea or constipation : Denies dysuria, hematuria, increased urgency/frequency, urinary retention Musculoskeletal: No joint pain, calf pain, swelling Neurologic: No weakness, numbness/tingling, or balance problems Psychiatric: No anxiety or depression Skin: No rash or itch Physical Exam Physical Exam: General: awake, alert, no apparent distress Head: Normocephalic, atraumatic ENT: PERRL, EOMI, no pharyngeal exudate, mucous membranes moist Chest: Crackles at lower lung bases, left greater than sign right, on room air Cardiac: Regular rate and rhythm, no murmur, no JVD, normal peripheral pulses, good capillary refill Abdominal: NABS x 4 quadrants, soft, nontender to palpation, no rebound, guarding or tenderness Extremities: Normal inspection, no peripheral edema or erythema, calfs nontender to palpation Psych: Normal mood and affect Neuro: AAO x 3, strength intact bilaterally and rated 5/5, no motor deficits, speech is clear, no peripheral sensory deficits Skin: no rash or erythema Results & Data Results & Data ([facility]) Vital Signs (Past 12 Hours) Vital Signs Temp Pulse Pulse Resp BP BP Pulse Ox 04/18/22 14:19 76 20 163/91 H 92 04/18/22 13:00 76 22 183/64 H 92 04/18/22 12:30 72 20 175/59 H 96 04/18/22 12:25 95 08/05/22 12:12 04/18/22 11:55 37.1 C 78 20 165/74 H 98 O2 Del Method 04/18/22 14:19 Room Air 04/18/22 13:00 Room Air 04/18/22 12:30 Room Air 04/18/22 12:25 Room Air 04/18/22 12:12 Room Air 04/18/22 11:55 Room Air Laboratory Results Abnormal lab results 04/18/22 04/18/22 04/18/22 Range/Units 12:10 12:51 12:51 RDW Std Deviation 50.4 H (36.4-46.3) fL RDW Coeff of Natacha 18.6 H (11.5-14.5) % MPV 13.1 H (9.4-12.4) fL Neut # (Auto) 7.33 H (1.4-6.5) K/uL Lymph # (Auto) 0.15 L (1.2-3.4) K/uL Immature Gran # (Auto) 0.04 H (0.00-0.02) K/uL Sodium 133 L (136-145) mmol/L BUN 25 H (6-23) mg/dl BUN/Creatinine Ratio 33.3 H (10-20) Glucose 163 H (70-99(Fasting)) mg/dl AST 49 H (13-39) U/L C-Reactive Protein 4.40 H (0-0.5) mg/dl Total Protein 5.5 L (6.0-8.3) gm/dl Albumin 2.8 L (3.4-5.0) gm/dl Lipase 6 L (11-82) U/L Diagnostic Findings Chest X-Ray 04/18/22 12:14 SINGLE VIEW CHEST CLINICAL HISTORY: Atypical chest pain. Covid. Dyspnea. FINDINGS: An AP, portable, upright chest radiograph is compared to study dated 04/14/2022 and correlated with chest CT dated 12/09/2019. The cardiomediastinal silhouette is unremarkable noting atherosclerotic calcification of the thoracic aorta. There is left basilar airspace consolidation. Minimal opacities are seen at the right lung base. No large pleural effusion or pneumothorax is seen. The skeletal structures are osteopenic. The bony thorax is grossly intact. Deg enerative change is noted in the shoulders and thoracic spine. IMPRESSION: 1. There is left basilar consolidation, typical for pneumonia/aspiration pneumonitis. Clinical correlation will be required and radiographic follow-up to resolution is recommended. 2. Minimal airspace opacities are also seen at the right lung base. ACT 112: Negative or not required by law. Electronically signed by: Nicolas Ervin M.D. 04/18/2022 12:49 PM ECG Additional Comments: 04/18/22 12:05 PM: Sinus rhythm with marked sinus arrhythmia Otherwise normal ECG When compared with ECG of 16-APR-2022 05:27, Nonspecific T wave abnormality now evident in Lateral leads 04/18/22 3:54 PM: Normal sinus rhythm, Possible Left atrial enlargement, Borderline ECG, When compared with ECG of 18-APR-2022 12:05, No significant change was found Code Status & VTE Plan Code Status Full Code. Supervising Physician Co-Signing Physician Notes Patient seen and examined, chart reviewed, case discussed with Manju Marr PA-C and I agree with the assessment and plan as above except as otherwise noted. Alcides is a 72-year-old male with COVID-19 +/ with chest pain, fatigue, and shortness of breath. Was on outpatient antibiotics for superimposed pneumonia comes in with worsened symptoms. High-sensitivity troponin and repeat are normal, EKG without acute ischemic findings. Patient with normal sats on room air. Is admitted for steroid treatment, antibiotics for superimposed secondary pneumonia, and slowly improving hyponatremia. Agree with management above. At bedside patient is regular, tachycardic, and breathing is without accessory muscle use of breathing but bibasilar crackles. PG Care Time/CCT Total # of Minutes Spent Total Time Spent with Patient: Total time spent is greater than 50% in coordination of care (as documented) at patient's floor/unit and/or counseling patient: Coding Level of Care Code INT OBSERVATION CARE 70M LVL 3 Diagnoses COVID-19 virus infection U07.1 Secondary bacterial pneumonia J15.9 Chest pain R07.9 Chest pain type: unspecified Acute hyponatremia E87.1 Hypertension I10 Hypercholesterolemia E78.00 Gastroesophageal reflux disease K21.9 Diabetes mellitus E11.9 Transplanted kidney Z94.0 Stroke I63.9 Carotid stenosis I65.29 (1) Chest pain Chest pain type: unspecified Qualified Code(s): R07.9 - Chest pain, unspecified
--- NOTE | 2022-04-18 15:23 | Electrocardiogram Report ---
Test Reason : Blood Pressure : / mmHG Vent. Rate : 072 BPM Atrial Rate : 072 BPM P-R Int : 196 ms QRS Dur : 102 ms QT Int : 392 ms P-R-T Axes : 037 -09 027 degrees QTc Int : 429 ms Sinus rhythm with marked sinus arrhythmia Otherwise normal ECG When compared with ECG of 16-APR-2022 05:27, Nonspecific T wave abnormality now evident in Lateral leads Confirmed by Son Ramon ([id number]) on 04/18/2022 3:23:02 PM Referred By: REFERRED SELF Confirmed By:Sameer Ramon
[2022-04-18] MEDS ORDERED: cefTRIAXone SODIUM 1,000 MG/50 ML BAG IV STA (15:42)
[2022-04-18] MEDS ORDERED: AZITHROMYCIN 500 MG in DEXTROSE 5% 250 ML IV STA (15:42)
[2022-04-18] MEDS ORDERED: OPTIRAY 320 125ml IV ONE (17:05)
--- NOTE | 2022-04-18 17:26 | CT Scan Report ---
CT angio chest PE protocol CT DOSE: 274.02 mGy.cm HISTORY: 72 years-old Male with covid history, chest pain, SOB. Acute shortness of breath and chest pain. History of Covid. TECHNIQUE: Multiple CTA images of the chest were obtained after the intravenous administration of 120 ml Optiray. Coronal and sagittal MIPS were obtained from the axial data set and were submitted for review. All measurements were obtained according to NASCET criteria. A dose lowering technique was u tilized adhering to the principles of ALARA. COMPARISON: Chest radiograph of same day, chest CT 12/09/2019 FINDINGS: CTA: Cardiomegaly without pericardial effusion. Extensive coronary artery and mitral annular calcification s. Atherosclerosis of the thoracic aorta without aneurysm or dissection. There is patency of the imag ed great vessels. There is suboptimal evaluation of the segmental and subsegmental pulmonary arterial branches within the lung bases secondary to respiratory motion artifact. No pulmonary emboli are kacie ntified. CT CHEST: Question hypodense left thyroid nodule versus artifact. Mild generalized body wall edema. No lymphade nopathy. Trace pleural effusions. No pneumothorax. Patchy bilateral subpleural and bibasilar left gre ater than right predominance groundglass and consolidative opacities. There are no suspicious pulmona ry nodules identified. Fissural and tree-in-bud micronodules of the lung bases are similar to prior a nd are likely benign. Mild tracheobronchial secretions. There is mild nonspecific mid to distal esophageal wall thickening. Air-fluid level within the esopha giovanna with tiny hiatal hernia. Partially imaged renal atrophy. Nonspecific calcifications of the thorac ic dural sac. Degenerative changes of the shoulders and spine. IMPRESSION: 1. No pulmonary emboli identified. 2. Patchy subpleural and bibasilar predominant groundglass and consolidative opacities are suggestive of viral pneumonia. 3. No lymphadenopathy. 4. Chronic findings as above. ACT 112: Negative or not required by law. The above report was generated using voice recognition software. It may contain grammatical, syntax o r spelling errors. Electronically signed by: Collins Godfrey M.D. 04/18/2022 5:24 PM
--- NOTE | 2022-04-18 17:35 | Electrocardiogram Report ---
Test Reason : Blood Pressure : / mmHG Vent. Rate : 077 BPM Atrial Rate : 077 BPM P-R Int : 190 ms QRS Dur : 104 ms QT Int : 394 ms P-R-T Axes : 053 -12 029 degrees QTc Int : 445 ms Normal sinus rhythm Possible Left atrial enlargement Borderline ECG When compared with ECG of 18-APR-2022 12:05, No significant change was found Confirmed by Son Ramon ([id number]) on 04/18/2022 5:34:56 PM Referred By: REFERRED SELF Confirmed By:Sameer Ramon
[2022-04-18] MEDS ORDERED: POLYETHYLENE (MIRALAX) 17 GM PACK PO PRN (18:15)
[2022-04-18] MEDS ORDERED: ALBUT/IPRATROP 3MG/0.5MG NEB 3 ML VIAL NEB PRN (18:15)
[2022-04-18] MEDS ORDERED: ACETAMINOPHEN 325 MG TAB PO PRN (18:15)
[2022-04-18] MEDS ORDERED: BACLOFEN 10 MG TAB PO PRN (18:15)
[2022-04-18] MEDS ORDERED: ONDANSETRON INJ 2 MG/ML 2 ML VIAL IV PRN (18:15)
[2022-04-18] MEDS ORDERED: IPRATROPIUM BROMIDE/ALBUTEROL respimat INH INH SCH (18:15)
[2022-04-18] MEDS ORDERED: GLUCAGON FOR INJ 1 MG VIAL SQ PRN (18:40)
[2022-04-18] MEDS ORDERED: GLUCOSE 10 TAB/TUBE PO PRN (18:40)
[2022-04-18] MEDS ORDERED: DEXTROSE 50% 50 ML SYRINGE IV PRN (18:40)
[2022-04-18] MEDS ORDERED: GLUCOSE 40% GEL 15 GM TUBE PO PRN (18:40)
[2022-04-18] MEDS ORDERED: CARBOHYDRATES FOR HYPOGLYCEMIA PO PRN (18:40)
[2022-04-18] MEDS ORDERED: SODIUM CHLORIDE 0.9% 1000ML 1,000 ML IV SCH (18:45)
[2022-04-18] MEDS ORDERED: Ipratropium HFA Inhaler (Combivent Respimat P&T Subs) INH SCH (19:00)
[2022-04-18] MEDS ORDERED: Albuterol HFA 8 GM Inhaler (Combivent Respimat P&T Subs) INH SCH (19:00)
[2022-04-18] MEDS: INSULIN DETEMIR FLEXPEN/FLEX TOUCH 100 UNITS/ML 3ML SC SCH (20:34)
[2022-04-18] MEDS: INSULIN ASPART PER UNIT SC SCH (20:34)
[2022-04-18] MEDS: BENZONATATE 100 MG CAPSULE PO SCH (20:35)
[2022-04-18] MEDS: MYCOPHENOLATE MOFETIL 250 MG CAP PO SCH (20:35)
[2022-04-18] MEDS: dexAMETHasone 6 MG in SYRINGE 0 ML IV SCH (20:35)
[2022-04-18] MEDS: cycloSPORINE 100 MG CAP PO SCH (20:36)
[2022-04-18] MEDS: OFLOXACIN 0.3% 75 DROPS/5 ML BTL OT SCH (20:36)
[2022-04-18] MEDS: TAMSULOSIN HCL 0.4 MG CAP PO SCH (20:36)
[2022-04-18] MEDS: guaiFENesin 600 MG TABCR PO SCH (20:36)
[2022-04-18] MEDS: METOPROLOL TARTRATE 50 MG TAB PO SCH (20:36)
[2022-04-18] MEDS: PANTOprazole 40 MG TAB PO SCH (20:36)
[2022-04-18] MEDS: ATORVASTATIN 40 MG TAB PO SCH (20:36)
[2022-04-18] MEDS ORDERED: ALBUTEROL HFA 8 GM INHALER INH PRN (21:45)
[2022-04-18] MEDS ORDERED: IPRATROPIUM BROMIDE HFA INHALER INH PRN (21:45)
[2022-04-19 07:29] LABS: Basophils # (auto) 0.01 K/uL (0-0.2); Basophils % (auto) 0.2 %; Hematocrit (blood only) 42.4 % (40.1-51.0); Hemoglobin 14.5 g/dl (14.0-18.0); Immature Granulocytes # (auto) 0.06 K/uL (0.00-0.02); Lymphocytes # (auto) 0.15 K/uL (1.2-3.4); Lymphocytes % (auto) 2.5 %; Mean Corpuscular Hemoglobin 29.4 pg (25.0-34.0); Mean Corpuscular Hgb Conc 34.2 g/dL (32.0-36.0); Mean Platelet Volume 10.5 fL (9.4-12.4); Monocytes # (auto) 0.48 K/uL (0.24-0.82); Neutrophils # (auto) 5.32 K/uL (1.4-6.5); Neutrophils % (auto) 88.3 %; Platelet Count 197 K/uL (130-400); RDW Coefficient of Variation 14.7 % (11.5-14.5); RDW Standard Deviation 46.5 fL (36.4-46.3); Red Blood Count 4.93 M/uL (4.63-6.08); White Blood Count 6.02 K/ul (4.8-10.8)
[2022-04-19 07:58] LABS: BUN Creatinine Ratio 27.4 (10-20); C Reactive Protein 4.76 mg/dl (0-0.5); Calcium 8.9 mg/dl (8.5-10.1); Creatinine Clr Calc Pharmacy 74.6 ml/min; Est GFR (Non-African American) 86.3 ml/min; Magnesium 1.4 mg/dl (1.7-2.4)
[2022-04-19] MEDS: INSULIN ASPART PER UNIT SC SCH ×4 (08:00→20:48)
[2022-04-19] MEDS: BENZONATATE 100 MG CAPSULE PO SCH ×3 (08:36→20:50)
[2022-04-19] MEDS: cycloSPORINE 100 MG CAP PO SCH ×2 (08:36→20:46)
[2022-04-19] MEDS: METOPROLOL TARTRATE 50 MG TAB PO SCH ×2 (08:36→20:46)
[2022-04-19] MEDS: amLODIPine BESYLATE 5 MG TAB PO SCH (08:37)
[2022-04-19] MEDS: guaiFENesin 600 MG TABCR PO SCH ×2 (08:37→20:47)
[2022-04-19] MEDS: MYCOPHENOLATE MOFETIL 250 MG CAP PO SCH ×2 (08:37→20:47)
[2022-04-19] MEDS: ASPIRIN 81 MG ECTAB PO SCH (08:37)
[2022-04-19] MEDS: CLOPIDOGREL BISULFATE 75 MG TAB PO SCH (08:37)
[2022-04-19] MEDS: OFLOXACIN 0.3% 75 DROPS/5 ML BTL OT SCH ×2 (08:38→20:47)
[2022-04-19] MEDS ORDERED: MAGNESIUM SULFATE / D5W 1 GM/100 ML BAG IV SCH (14:30)
--- NOTE | 2022-04-19 14:30 | Hospitalist Progress Note ---
Date of Service April 19, 2022 Assessment & Plan (1) COVID-19 virus infection: Plan: - Symptoms began over a week ago on 04/08, tested positive on 04/10. - some improvement in SOB -Elevated CRP - Rocephin and azithromycin daily for secondary bacterial pneumonia. - IV dexamethasone 6 mg daily - Combivent respimat inhaler 4 times daily. - DuoNebs every 2 hours as needed. - Mucinex twice daily. - Tessalon Perles prn. (2) Secondary bacterial pneumonia: Plan: - Seen on CXR on admission 04/15 and again today. His WBC is improved today 7.83, was low on initial admission on 04/15 setting of viral illness (COVID). - Received 2 days of Rocephin and azithromycin, was sent home on 04/16 with doxycycline and cefpodoxime, completed 2 days of this. - Has been restarted on Rocephin and azithromycin while in hospital. (3) Chest pain: Plan: -chest pains now resolved - EKG NSR with sinus arrhythmia, no ST segment or T wave changes, hs trop 14.1 - CTA of chest checked for PE, did not identify such, showed patchy subpleural bibasilar predominant groundglass and consolidative opacities suggestive of viral pneumonia. (4) Acute hyponatremia: Plan: - Presented on 04/15 with sodium of 127, improvement, 133 today. - NSS @100 cc/hour for rehydration after poor p.o. intake with infection. -Receck BMP (5) Hypertension: Plan: - Continue amlodipine 5 mg daily, metoprolol 50 mg twice daily. (6) Hypercholesterolemia: Plan: - Continue atorvastatin 40 mg daily. (7) Gastroesophageal reflux disease: Plan: - Continue PPI, switch to hospital formulary. (8) Diabetes mellitus: Plan: - Continue Levemir 8 units daily, with Accu-Cheks achs and SSI. (9) Transplanted kidney: Plan: - In 2000. - Continue anti-rejection medications. (10) Stroke: Plan: - In 1996. - Continue ASA plus Plavix, statin. (11) Carotid stenosis: Plan: - Continue ASA plus Plavix, statin. Plan - continue hospitalization - SCDs, Lovenox for VTE ppx. - Full Code. Admission and Anticipated Discharge Date Admission Date: April 18, 2022 Subjective patient seen and examined, says sob is better Review of Systems Review of Systems: All systems reviewed are negative, apart from the ones contained in the history. Physical Exam Physical Exam: The patient is awake, alert and oriented 3, well developed and well nourished, normocephalic and atraumatic, lying in bed and in no acute distress. HEENT--PERRL, EOMI, mucous membranes and oropharynx mildly dry Neck--supple. No JVD. No bruits. Thyroid normal, trachea midline, no adenopathy. Heart--normal S1 and S2. No murmurs, rubs or gallops. Lungs--clear bilaterally, no respiratory distress, no accessory muscle use. Abdomen--normal bowel sounds and soft. Mild epigastric and left sided abdominal pain Extremities--no cyanosis or clubbing. No edema. Dermatologic--normal skin turgor, normal color, no abnormal lymph nodes, no rash. Neurologic--cranial nerves II through XII grossly intact. Rheumatologic--normal range of motion. Psychiatric--normal affect. Results & Data Results & Data ([facility]) Vital Signs (Past 12 Hours) Vital Signs Temp Pulse Pulse Resp BP Pulse Ox O2 Del Method 04/19/22 10:35 98.8 F 78 18 168/70 H 94 Room Air 04/19/22 10:16 98.4 F 84 16 138/77 97 Room Air 04/19/22 07:00 78 04/19/22 03:02 98.1 F 78 20 134/72 92 Room Air PG Care Time/CCT Total # of Minutes Spent Total Time Spent with Patient: Total time spent is greater than 50% in coordination of care (as documented) at patient's floor/unit and/or counseling patient: Coding Level of Care Code 69147 Subseq Hosp Care Lvl 2 Diagnoses COVID-19 virus infection U07.1 Secondary bacterial pneumonia J15.9 Chest pain R07.9 Chest pain type: unspecified Acute hyponatremia E87.1 Hypertension I10 Hypercholesterolemia E78.00 Gastroesophageal reflux disease K21.9 Diabetes mellitus E11.9 Transplanted kidney Z94.0 Stroke I63.9 Carotid stenosis I65.29 Time Spent (min) 35 (1) Chest pain Chest pain type: unspecified Qualified Code(s): R07.9 - Chest pain, unspecified
[2022-04-19] MEDS ORDERED: AZITHROMYCIN 250 MG in DEXTROSE 5% 250 ML IV SCH (16:00)
[2022-04-19] MEDS ORDERED: MAGNESIUM SULFATE / D5W 1 GM/100 ML BAG IV ONE (16:30)
[2022-04-19] MEDS ORDERED: cefTRIAXone SODIUM 1,000 MG in DEXTROSE 5% 50 ML IV SCH (18:00)
[2022-04-19] MEDS: dexAMETHasone 6 MG in SYRINGE 0 ML IV SCH (19:18)
[2022-04-19] MEDS: ATORVASTATIN 40 MG TAB PO SCH (20:46)
[2022-04-19] MEDS: PANTOprazole 40 MG TAB PO SCH (20:46)
[2022-04-19] MEDS: INSULIN DETEMIR FLEXPEN/FLEX TOUCH 100 UNITS/ML 3ML SC SCH (20:47)
[2022-04-19] MEDS: TAMSULOSIN HCL 0.4 MG CAP PO SCH (20:47)
[2022-04-20] MEDS ORDERED: amLODIPine BESYLATE 5 MG TAB PO ONE (04:25)
--- NOTE | 2022-04-20 04:28 | Communication Note ---
Date of Service: April 20, 2022 BPs persistently elevated overnight, up to 194/81. Asymptomatic. Ordering now dose of amlodipine 5mg. He is normally on amlodipine 5 and metoprolol tartrate 50 PO BID. This would effectively be 10mg amlodipine for today; assess if appropriate to continue on subsequent days. Update: complaining of chest pain. ordered ecg, SL nitro, and trop. BP at 5:20 AM was 129/71. trop wnl. ecg reviewed, no new sig change. chest pain milder after the nitro
[2022-04-20] MEDS ORDERED: NITROGLYCERIN SL 0.4 MG/TAB TAB SL PRN (05:03)
[2022-04-20 05:53] LABS: Hematocrit (blood only) 42.2 % (40.1-51.0); Hemoglobin 14.7 g/dl (14.0-18.0); Mean Corpuscular Hemoglobin 29.6 pg (25.0-34.0); Mean Corpuscular Hgb Conc 34.8 g/dL (32.0-36.0); Mean Corpuscular Volume 85.1 fL (80.0-100.0); Mean Platelet Volume 10.3 fL (9.4-12.4); Platelet Count 258 K/uL (130-400); RDW Coefficient of Variation 14.2 % (11.5-14.5); RDW Standard Deviation 43.9 fL (36.4-46.3); Red Blood Count 4.96 M/uL (4.63-6.08); White Blood Count 6.39 K/ul (4.8-10.8)
[2022-04-20 06:21] LABS: Troponin I High Sensitivity 15.7 pg/ml (0-20)
[2022-04-20 06:24] LABS: BUN Creatinine Ratio 29.2 (10-20); Calcium 8.7 mg/dl (8.5-10.1); Creatinine Clr Calc Pharmacy 87.1 ml/min; Est GFR (African American) 106.5 ml/min; Est GFR (Non-African American) 91.9 ml/min; Magnesium 1.4 mg/dl (1.7-2.4); Potassium 3.7 mmol/L (3.5-5.1)
[2022-04-20] MEDS: guaiFENesin 600 MG TABCR PO SCH (08:31)
[2022-04-20] MEDS: MYCOPHENOLATE MOFETIL 250 MG CAP PO SCH (08:31)
[2022-04-20] MEDS: CLOPIDOGREL BISULFATE 75 MG TAB PO SCH (08:32)
[2022-04-20] MEDS: METOPROLOL TARTRATE 50 MG TAB PO SCH (08:32)
[2022-04-20] MEDS: ASPIRIN 81 MG ECTAB PO SCH (08:32)
[2022-04-20] MEDS: cycloSPORINE 100 MG CAP PO SCH (08:32)
[2022-04-20] MEDS: OFLOXACIN 0.3% 75 DROPS/5 ML BTL OT SCH (08:34)
[2022-04-20] MEDS: INSULIN ASPART PER UNIT SC SCH ×2 (08:46→12:21)
--- NOTE | 2022-04-20 08:59 | Electrocardiogram Report ---
Test Reason : Blood Pressure : / mmHG Vent. Rate : 075 BPM Atrial Rate : 075 BPM P-R Int : 196 ms QRS Dur : 102 ms QT Int : 400 ms P-R-T Axes : 038 -12 -02 degrees QTc Int : 446 ms Normal sinus rhythm Minimal voltage criteria for LVH, may be normal variant Borderline ECG When compared with ECG of 18-APR-2022 15:54, No significant change was found Confirmed by Lavon Rinaldi ([id number]) on 04/20/2022 8:58:56 AM Referred By: REFERRED SELF Confirmed By:Lavon Rinaldi
[2022-04-20] MEDS ORDERED: ERGOCALCIFEROL 50,000 UNITS 1250 MCG CAP PO SCH (09:00)
[2022-04-20] MEDS: BENZONATATE 100 MG CAPSULE PO SCH ×2 (09:12→12:34)
[2022-04-20] MEDS: amLODIPine BESYLATE 5 MG TAB PO SCH (09:12)
--- NOTE | 2022-04-20 13:54 | Discharge Summary ---
Date of Service April 20, 2022 Admission HPI Per Admitting Provider Alcides Vega is a 72-year-old male with a past medical history significant for renal transplant in 2000, DM2, neuropathy, CAD with stent in 2007, hyperlipidemia, hypertension peripheral BKA's, GERD, and CVA in 1996 who presents today via ambulance with left-sided chest pain and shortness of breath. Patient was recently seen and admitted to our hospital on 04/15 for COVID-19 infection with superimposed bacterial pneumonia. One day later on 04/16, he signed himself out AMA. He was discharged on doxycycline, cefpodoxime, and dexamethasone. Since he left hospital, he has had hard time eating and drinking at home, continues to be short of breath, and has the left-sided chest ache that has been present on and off prior to COVID diagnosis and worse after coughing. e is still urinating, has not had any fevers, nausea, vomiting, abdominal pain. Patient is vaccinated for COVID. In ED, he presents hypertensive 163/91, vital signs otherwise within normal limits, SPO2 >92%, HR 70s. Afebrile. Labs significant for sodium 133, CRP 4.40, procalcitonin 0.37. Glucose mildly elevated 163, AST 49. Renal function at baseline, improved since admission on 04/16. hs Trop 14.1. CXR shows left basilar consolidation typical for pneumonia or aspiration pneumonitis. ED course: Albuterol nebulizer treatment, Tessalon Perles, Mucinex. Principal Diagnosis PNA Discharge Exam The patient is awake, alert and oriented 3, well developed and well nourished, normocephalic and atraumatic, lying in bed and in no acute distress. HEENT--PERRL, EOMI, mucous membranes and oropharynx mildly dry Neck--supple. No JVD. No bruits. Thyroid normal, trachea midline, no adenopathy. Heart--normal S1 and S2. No murmurs, rubs or gallops. Lungs--clear bilaterally, no respiratory distress, no accessory muscle use. Abdomen--normal bowel sounds and soft. Mild epigastric and left sided abdominal pain Extremities--no cyanosis or clubbing. No edema. Dermatologic--normal skin turgor, normal color, no abnormal lymph nodes, no rash. Neurologic--cranial nerves II through XII grossly intact. Rheumatologic--normal range of motion. Psychiatric--normal affect. Discharge Data Allergies Allergy/AdvReac Type Severity Reaction Status Date / Time hydromorphone [From Dilaudid] Allergy Severe Respiratory Verified 04/18/22 16:03 Arrest gabapentin Allergy Unknown Unknown Verified 04/18/22 16:03 Consultations 04/18/22 14:26 ED Decision to Admit Stat Ordered Studies 04/18/22 15:26 CT angio chest PE protocol Stat Hospital Course (1) COVID-19 virus infection: - Symptoms began over a week ago on 04/08, tested positive on 04/10. - some improvement in SOB -Elevated CRP - IV dexamethasone 6 mg daily - Combivent respimat inhaler 4 times daily. - DuoNebs every 2 hours as needed. - Mucinex twice daily. - Tessalon Perles prn. (2) Secondary bacterial pneumonia: - Seen on CXR on admission 04/15 and again today. His WBC is improved today 7.83, was low on initial admission on 04/15 setting of viral illness (COVID). - Received 2 days of Rocephin and azithromycin, was sent home on 04/16 with doxycycline and cefpodoxime, completed 2 days of this. - Has been restarted on Rocephin and azithromycin while in hospital. Transitioned to PO cefdinir upon discharge, cultures were negative (3) Chest pain: -chest pains now resolved - EKG NSR with sinus arrhythmia, no ST segment or T wave changes, hs trop 14.1 - CTA of chest checked for PE, did not identify such, showed patchy subpleural bibasilar predominant groundglass and consolidative opacities suggestive of viral pneumonia. (4) Acute hyponatremia: - Resolved (5) Hypertension: - Continue amlodipine 5 mg daily, metoprolol 50 mg twice daily. (6) Hypercholesterolemia: - Continue atorvastatin 40 mg daily. (7) Gastroesophageal reflux disease: - Continue PPI, switch to hospital formulary. (8) Diabetes mellitus: - Continue Levemir 8 units daily, with Accu-Cheks achs and SSI. (9) Transplanted kidney: - In 2000. - Continue anti-rejection medications. (10) Stroke: - In 1996. - Continue ASA plus Plavix, statin. (11) Carotid stenosis: - Continue ASA plus Plavix, statin. Plan - continue hospitalization - SCDs, Lovenox for VTE ppx. - Full Code. Total Time Total Time Spent Total Time Spent (In Minutes): 35 Discharge Plan Discharge Items Patient Disposition: Home - Self-Care Reason For Visit: COVID-19 WITH SECONDARY BACTERIAL PNEUMONIA Discharge Diagnosis: PNA Activity: Resume your previous activity Non-emergency contact: Primary Care Provider Call non-emergency contact if: you have any medication questions Follow-up/Referrals: Srini Cordero MD [Primary Care Provider] - 04/29/22 3:45 pm (Appt with Dr. Mendiola) Diet: Regular Addtl Attending Provider Instructions: please make appointment to follow up with your pcp Pending Studies at Discharge: No Stand-Alone Forms: [employer], Smoking Cessation Medications and DC Order Prescriptions: New cefdinir 300 mg capsule 300 mg PO BID 5 Days Qty: 10 0RF Continued baclofen 10 mg tablet 10 mg PO BID PRN (Reason: spasms) Qty: 60 0RF hydrocodone-acetaminophen 5-325 mg tablet 1 tab PO BID PRN (Reason: pain) Qty: 30 0RF Rx Instructions: ONGOING THERAPY mycophenolate mofetil 500 mg tablet 1,000 mg PO BID Qty: 360 3RF (DME) FreeStyle Devin 14 Day Sensor Kit See Rx Instructions .Route Qty: 6 3RF Rx Instructions: use for continuous glucose monitoring cyclosporine modified 100 mg capsule 100 mg PO BID Qty: 180 3RF fludrocortisone 0.1 mg tablet 0.1 mg PO QAM Qty: 90 3RF clopidogrel 75 mg tablet 75 mg PO QAM Qty: 90 3RF amlodipine 5 mg tablet 5 mg PO QAM Qty: 90 3RF (DME) insulin syringe-needle U-100 [BD Insulin Syringe Ultra-Fine] 0.5 mL 30 gauge x 1/2" syringe See Dose Instructions .ROUTE .MEDSUPPLY Qty: 800 2RF Rx Instructions: As directed glucagon HCl 1 mg recon soln 0 mcg/kg IM UD PRN (Reason: Hypoglycemia) Qty: 2 prednisone 5 mg tablet 5 mg PO DAILY Qty: 90 3RF esomeprazole magnesium 40 mg capsule,delayed release(DR/EC) 40 mg PO QPM Qty: 90 3RF tamsulosin 0.4 mg capsule 0.4 mg PO QPM Qty: 90 3RF atorvastatin 40 mg tablet 40 mg PO QPM Qty: 90 3RF metoprolol tartrate 50 mg tablet 50 mg PO BID Qty: 180 3RF aspirin 81 mg Tablet,Delayed Release (Dr/Ec) 81 mg PO QAM acetaminophen [Tylenol Extra Strength] 500 mg Tablet 1,000 mg PO Q6H PRN (Reason: Pain) Levemir U-100 Insulin 100 unit/mL solution 8 unit SQ QPM ergocalciferol (vitamin D2) 1,250 mcg (50,000 unit) capsule 1,250 mcg PO WK Rx Instructions: TAKE THIS MED EVERY THURSDAY dexamethasone 6 mg tablet 6 mg PO DAILY Qty: 7 0RF Rx Instructions: start on 04/17 take one tablet daily for 7 days. insulin aspart U-100 [Novolog U-100 Insulin aspart] 100 unit/mL solution 20 unit subcut TIDM Rx Instructions: WITH CARB COUNT Discontinued doxycycline hyclate 100 mg tablet 100 mg PO BID 3 Days Qty: 6 0RF Rx Instructions: hold zinc while on this medicine start 04/17/22 X 3 DAYS cefpodoxime 200 mg tablet 200 mg PO BID Qty: 6 0RF Rx Instructions: must administer with a meal/food start on 04/17/22 X 3 DAYS Discharge Orders: Discharge Order (Routine); Ordered 04/20/22 Ordered By: Lázaro Rivas Admission Data Admit Date/Time: 04/20/22 12:02 Attending Provider: Lázaro Rivas Admit Provider: Marito Dalton Primary Care Provider: Srini Cordero Other Providers: Marito Dalton Other Interventions: Discharge Summary Assessment (RN) Last Done: 04/20/22 13:50 Coding Level of Care Code D/C DAY MANAGEMENT >30 MINS Diagnoses COVID-19 virus infection U07.1 Secondary bacterial pneumonia J15.9 Chest pain R07.9 Chest pain type: unspecified Acute hyponatremia E87.1 Hypertension I10 Hypercholesterolemia E78.00 Gastroesophageal reflux disease K21.9 Diabetes mellitus E11.9 Transplanted kidney Z94.0 Stroke I63.9 Carotid stenosis I65.29 Time Spent (min) 35
--- NOTE | 2022-05-02 07:09 | Coding Query ---
Shortness of breath and hypoxia CODING QUERY To promote full compliance with coding requirements relating to patient care, provider participation is requested in all cases of jewelsmith uncertainty. Please assist us with the question(s) below: Coding Question(s): Pt adm with Covid 19 & 2nd bacterial pneumonia. CTA : viral pneumnia. Please document, if known or suspected, the specific Covid illness/manifestation. Thanks for your help. RADHA Vizcaino CCS Physician's Response(s): Thank you RADHA Vizcaino CCS Principal Diagnosis: "that condition established after study, to be chiefly responsible for occasioning the admission of the patient to the hospital for care." Co-Existing Principal Diagnosis: "when two or more diagnoses equally meet the criteria for principal diagnosis as determined by the circumstances of admission, diagnostic work up, and/or therapy provided, and the Alphabetic Index, Tabular List, or another coding guideline does not provide sequencing direction, any one of the diagnoses may be sequenced first." "When the physician has documented what appears to be a current diagnosis in the body of the record, but has not included the diagnosis in the final diagnostic statement, the physician should be asked whether the diagnosis should be added." (Source Coding [facility] 2 QTR90. p3-4) ELA
== END 2022-04-20 14:27 | disposition home or self-care (01) | DRG 177 ==
LOC: ED 11:53 → EDINP 11:53 → SUATTDRO 14:50 → 2S 22:11 → 2N 04-19 22:50

== ENCOUNTER 2022-12-22 19:17 | Inpatient (IN) ==
[~2022-12-22 19:17] MED LIST changes: -AMLO-114 PO; -ATOR-24 PO; +ATROPINE SULFATE 0.1 MG/ML 10ML SYR IV ONE; +CALCIUM CHLORIDE 10% 10 ML SYR IV ONE; -CLOP1TAB15 PO; -CYCL1CAP10 PO; -FLM4 PO; -LVMI SQ; -METO100T14 PO; -MYCO500T5 PO; -NVLGI SC; -NXM/40 PO; -PRED-301 PO; +SODIUM BICARB 8.4% INJ 50 MEQ/50 ML SYR IV ONE; +SODIUM CHLORIDE 0.9% 10ML FLUSH IV ONE
--- NOTE | 2022-12-22 19:32 | Emergency Department Note ---
Impression & Plan CHB (complete heart block), Weak ED Provider Note NAME: YENI HADDAD AGE: 72 SEX: M : 1950 ARRIVES VIA: Ambulance INFORMANT: Patient ED PROVIDER(S): Olman Rasheed DO CHIEF COMPLAINT: weak and lightheaded HPI: Patient is a 72-year-old male with a past medical history of diabetes, aortic stenosis, hypoxia, carotic stenosis, hypertension, hyperlipidemia and CVA the presents to the ER for feeling very weak and rundown after he had dinner tonight. Everything started suddenly. His heart rate was really low and he called EMS. He was found to have a heart rate in the 20s but was not given anything by EMS as he maintained blood pressure up until just prior to arrival when he did drop his pressure into the 70s. They pulled atropine but did nit give it as his SBP trended up. Patient is agreeable to CPR, intubation and pacing. PAST MEDICAL HISTORY:See Below PAST SURGICAL HISTORY:See Below FAMILY HISTORY:See Below SOCIAL HISTORY:See Below HOME MEDICATIONS:See Below ALLERGIES:See Below VITALS:See Below PHYSICAL EXAMINATION: GENERAL: Sitting up in bed, alert, well appearing, well nourished, no distress, non-toxic EYE EXAM: normal conjunctiva. OROPHARYNX: mucous membranes are moist LUNGS: Clear to auscultation. Normal chest wall mechanics HEART: no murmurs, S1 normal and S2 normal ABDOMEN: abdomen soft, non-tender, normo-active bowel sounds, no masses, no rebound or guarding. UPPER EXTREMITIES: upper extremities are grossly normal. LOWER EXTREMITIES: No pitting edema. NEURO EXAM: Normal sensorium, cranial nerves II-XII grossly intact, normal speech, no gross weakness of arms, no gross weakness of legs. MEDICAL DECISION MAKING: Patient is a 72-year-old male who presents ER for above-stated complaint. IV was established blood work was obtained. History was obtained from EMS and the patient. EKG was reviewed which showed a complete heart block. Pacers were placed and cart was moved into the room. Blood pressures remained fairly stable from 140s to the low 100s. IVs were established blood work was obtained. External records were reviewed. Discussed with Dr. Celeste in regards to the complete heart block. He recommended admission to medicine and they will evaluate. Labs show no significant leukocytosis. No anemia. BMP with slightly elevated glucose at 166. LFTs bilirubin was negative. Troponin was negative. Lipase normal. Lyme was negative. COVID-negative. Discussed with Dr. De La Cruz for further evaluation management of complete heart block. Triage Nursing notes reviewed. Limited review of prior medical records performed Vital Signs: reviewed and remarkable for bradycardia Differential diagnosis: Cardiac ischemia, aortic dissection, pulmonary embolism, pneumothorax, pneumonia, pericarditis, myocarditis, esophageal rupture, GERD, cholecystitis, pancreatitis, musculoskeletal, as well as other pathologies. ER treatment provided: See below Diagnostics interpreted by me include EKG and cardiac monitoring as listed below: -Cardiac Monitoring: An order was placed for continuous cardiac monitoring. The monitor shows a rate of 45 with complete heart block rhythm. -ECG: Complete heart block, rate of 49 Left axis T wave inversion in the high lateral leads Septal Q waves Left bundle branch block QTc 451 -Laboratory studies:Interpreted by me as stated above in MDM and shown below. Imaging studies: Xrays: As interpreted by me: Portable AP upright 1 view of the chest shows no CTs show: none Consultation(s): As described in MDM Procedures:none Critical Care: None Past Med/Surg History Medical History Arthritis Atherosclerosis of solomon coronary artery without angina pectoris Benign hypertension CAD (coronary artery disease) Carotid artery stenosis Chronic back pain Chronic kidney disease Chronic left hip pain Diabetes mellitus Enlarged prostate without lower urinary tract symptoms (luts) Gastroesophageal reflux disease Hearing loss Heart attack Hiatal hernia Hypercholesterolemia Hypertension Lumbar radicular pain Lumbar spondylosis Myofascial pain Stroke Surgical History H/O left wrist surgery History of anesthesia reaction History of cardiac cath History of carotid endarterectomy History of esophagogastroduodenoscopy (EGD) History of hip surgery Kidney replaced by transplant S/P bilateral BKA (below knee amputation) Status post carotid surgery Transplanted kidney Family History Father Hearing loss Heart disease Family history of diabetes mellitus Mother Hypertension Family history of diabetes mellitus Other No family history of adverse response to anesthesia No family history of bleeding disorder Denies family history of Ovarian cancer Prostate cancer Myocardial infarction Breast cancer Colorectal cancer Social History (Reviewed 12/03/22 @ 10:09 by CARROLL Castrejon Smoking Status: Never smoker Tobacco Type: Smokeless Tobacco (Dip or Chew) Second Hand Exposure: No; Do You Dip or Chew Tobacco: Yes; Tobacco Cessation Education Requested by Patient: No Hx Alcohol Use: Yes Alcohol type: hard liquor Hx Substance Use: No Preferred Language: [place] Communication Ability: Effective Visual Impairment: Severely Limited Hearing Ability: Hard of Hearing Recreation Adviser Required: No Beliefs That Will Affect Care: None marital status: Current Living Situation: Spouse current occupational status: retired Other Information That Helps Us Care for You: No Feels Safe at Home: Yes Safety Concerns: Feels Safe At This Time Childhood Exposure to Second-Hand Smoke: No Dental Care, Regularly: No Physical Activity Frequency: Does not Exercise Seatbelt Use: always Sunscreen Use: No Assistive Devices: Prosthesis and Walker Allergies Allergies Allergy/AdvReac Type Severity Reaction Status Date / Time hydromorphone [From Dilaudid] Allergy Severe Respiratory Verified 12/22/22 20:09 Arrest gabapentin Allergy Unknown Unknown Verified 12/22/22 20:09 Home Meds Home Medications Medication Instructions Recorded Confirmed aspirin 81 mg tablet,delayed 81 mg PO QAM 12/09/19 12/22/22 release acetaminophen 500 mg tablet 1,000 mg PO Q6H PRN Pain 04/24/21 12/22/22 (Tylenol Extra Strength) insulin detemir U-100 100 unit/mL 8 unit subcut HS 05/31/21 12/22/22 subcutaneous solution (Levemir U-100 Insulin) ergocalciferol (vitamin D2) 1,250 1,250 mcg PO WK 04/14/22 12/22/22 mcg (50,000 unit) capsule insulin aspart U-100 100 unit/mL 0 unit subcut TIDM 04/18/22 12/22/22 subcutaneous solution (Novolog U-100 Insulin aspart) potassium chloride 20 mEq 20 meq PO QAM 12/22/22 12/22/22 tablet,extended release prednisone 5 mg tablet 5 mg PO QAM 12/22/22 12/22/22 Previous Rx's Medication Instructions Recorded insulin syringe-needle U-100 0.5 #800 ea 02/03/20 mL 30 gauge x 1/2" (BD Insulin Syringe Ultra-Fine) esomeprazole magnesium 40 mg 40 mg PO QPM #90 caps 08/28/21 capsule,delayed release tamsulosin 0.4 mg capsule 0.4 mg PO QPM #90 caps 08/28/21 FreeStyle Devin 14 Day Sensor #6 ea 11/05/21 (flash glucose sensor) amlodipine 5 mg tablet 5 mg PO QAM #90 tabs 11/26/21 clopidogrel 75 mg tablet 75 mg PO QAM #90 tabs 11/26/21 fludrocortisone 0.1 mg tablet 0.1 mg PO QAM #90 tabs 11/26/21 metoprolol tartrate 50 mg tablet 50 mg PO BID #180 tabs 04/01/22 cyclosporine modified 100 mg 100 mg PO BID #180 caps 04/20/22 capsule atorvastatin 40 mg tablet 40 mg PO QPM #90 tabs 08/18/22 mycophenolate mofetil 500 mg tablet 1,000 mg PO BID #360 tabs 08/18/22 hydrocodone 7.5 mg-acetaminophen 1 tab PO BID PRN pain #30 tabs 11/24/22 325 mg tablet Results & Data (ED) Vital Signs Vital Signs - 24 hr 12/22/22 19:23 12/22/22 19:19 12/22/22 19:26 Temperature 36.8 C Temperature Source Oral Pulse Rate 49 L 49 L 49 L Pulse Rhythm Irregular Respiratory Rate 16 16 Respiratory Effort / Characteristics Non-Labored Spontaneous Respiratory Depth Normal Blood Pressure 122/59 L Blood Pressure Mean 80 Pulse Oximetry 97 99 Oxygen Delivery Method Room Air Room Air Sepsis Recent Fever Within 48 Hours No Sepsis New/Unexplained Change in Mental Status No Sepsis Action Taken by Nursing No Action Required Laboratory Data 12/22/22 19:45 12/22/22 19:45 Lab Results 12/22/22 12/22/22 12/22/22 Range/Units 19:45 19:45 19:45 WBC 8.12 (4.8-10.8) K/ul RBC 4.36 L (4.70-6.10) M/uL Hgb 12.6 L (14.0-18.0) g/dl Hct 37.8 L (42.0-52.0) % MCV 86.7 (80.0-100.0) fL MCH 28.9 (25.0-34.0) pg MCHC 33.3 (32.0-36.0) g/dL RDW Std Deviation 44.3 (36.4-46.3) fL RDW Coeff of Natacha 14.0 (11.5-14.5) % Plt Count 198 (130-400) K/uL MPV 11.5 (9.4-12.4) fL Immature Gran % (Auto) 0.2 % Neut % (Auto) 84.9 % Lymph % (Auto) 8.9 % Kay % (Auto) 4.9 % Eos % (Auto) 0.9 % Baso % (Auto) 0.2 % Neut # (Auto) 6.89 H (1.40-6.50) K/uL Lymph # (Auto) 0.72 L (1.2-3.4) K/uL Kay # (Auto) 0.40 (0.11-0.59) K/uL Eos # (Auto) 0.07 (0-0.50) K/uL Baso # (Auto) 0.02 (0-0.2) K/uL Immature Gran # (Auto) 0.02 (0.01-0.20) K/uL Sodium 138 (136-145) mmol/L Potassium 4.0 (3.5-5.1) mmol/L Chloride 110 H (98-107) mmol/L Carbon Dioxide 22 (21-32) mmol/L Anion Gap 6 (3-11) BUN 32 H (6-23) mg/dl Creatinine 0.75 (0.6-1.4) mg/dl Est Cr Clr Drug Dosing 83.6 ml/min Est GFR ( Amer) 104.7 ml/min Est GFR (Non-Af Amer) 90.4 ml/min BUN/Creatinine Ratio 42.7 H (10-20) Glucose 188 H (70-99(Fasting)) mg/dl Calcium 8.9 (8.6-10.3) mg/dl Magnesium 1.4 L (1.7-2.4) mg/dl Total Bilirubin 0.5 (0.2-1.0) mg/dl AST 14 (13-39) U/L ALT 9 (7-52) U/L Alkaline Phosphatase 77 (34-104) U/L Troponin I High Sens 9.4 (0-20) pg/ml Total Protein 5.7 L (6.0-8.3) gm/dl Albumin 3.1 L (3.4-5.0) gm/dl Globulin 2.6 (2.5-4.0) gm/dl Albumin/Globulin Ratio 1.2 (0.9-2) Lipase 7 L (11-82) U/L Lyme Disease IgG Ab (Negative) Lyme Disease IgM Ab (Negative) SARS-CoV-2, RNA, NAAT NEGATIVE (NEGATIVE) 12/22/22 12/22/22 Range/Units 19:45 21:03 WBC (4.8-10.8) K/ul RBC (4.70-6.10) M/uL Hgb (14.0-18.0) g/dl Hct (42.0-52.0) % MCV (80.0-100.0) fL MCH (25.0-34.0) pg MCHC (32.0-36.0) g/dL RDW Std Deviation (36.4-46.3) fL RDW Coeff of Natacha (11.5-14.5) % Plt Count (130-400) K/uL MPV (9.4-12.4) fL Immature Gran % (Auto) % Neut % (Auto) % Lymph % (Auto) % Kay % (Auto) % Eos % (Auto) % Baso % (Auto) % Neut # (Auto) (1.40-6.50) K/uL Lymph # (Auto) (1.2-3.4) K/uL Kay # (Auto) (0.11-0.59) K/uL Eos # (Auto) (0-0.50) K/uL Baso # (Auto) (0-0.2) K/uL Immature Gran # (Auto) (0.01-0.20) K/uL Sodium (136-145) mmol/L Potassium (3.5-5.1) mmol/L Chloride (98-107) mmol/L Carbon Dioxide (21-32) mmol/L Anion Gap (3-11) BUN (6-23) mg/dl Creatinine (0.6-1.4) mg/dl Est Cr Clr Drug Dosing ml/min Est GFR ( Amer) ml/min Est GFR (Non-Af Amer) ml/min BUN/Creatinine Ratio (10-20) Glucose (70-99(Fasting)) mg/dl Calcium (8.6-10.3) mg/dl Magnesium Cancelled (1.7-2.4) mg/dl Total Bilirubin (0.2-1.0) mg/dl AST (13-39) U/L ALT (7-52) U/L Alkaline Phosphatase (34-104) U/L Troponin I High Sens (0-20) pg/ml Total Protein (6.0-8.3) gm/dl Albumin (3.4-5.0) gm/dl Globulin (2.5-4.0) gm/dl Albumin/Globulin Ratio (0.9-2) Lipase (11-82) U/L Lyme Disease IgG Ab Negative (Negative) Lyme Disease IgM Ab Negative (Negative) SARS-CoV-2, RNA, NAAT (NEGATIVE) Administered Medications Sodium Chloride (Nss 1000ml) 1,000 mls @ 100 mls/hr IV .Q10H JORDI Stop: 01/21/23 22:15 Last Admin: 12/22/22 23:16 Dose: 100 mls/hr Documented By: THOMAS Magnesium Sulfate/Dextrose (Magnesium Sulfate / D5w) 1 gm in 100 mls @ 50 mls/hr IV Q2H JORDI Stop: 12/23/22 02:15 Last Admin: 12/22/22 23:16 Dose: 50 mls/hr Documented By: THOMAS Imaging Data Radiologist's Impression: Chest X-Ray 12/22/22 19:51 XR chest 1V portable CLINICAL HISTORY: heart block TECHNIQUE: Single frontal radiograph of the chest was obtained. Comparison: Comparison is made to chest radiograph 08/15/2022 FINDINGS: No lines and tubes are seen. Calcified aortic knob is seen. Interstitial disease is seen. Lungs are underinflated with bibasilar densities. No evidence of pleural effusion or pneumothorax. IMPRESSION: Bibasilar densities may represent atelectasis, with or without superimposed aspiration/pneumonia. ACT 112: Negative or not required by law. Electronically signed by: Dex Kendall M.D. 12/22/2022 8:18 PM Discharge Plan Visit Data Chief Complaint: Bradycardia Stated Complaint: DIZZY, BRADYCARDIC, NAUSEA ED Provider: Olman Rasheed Discharge Problem: CHB (complete heart block), Weak Patient Disposition: Admitted As Inpatient Discharge Instructions Interventions: ED Discharge Assessment Last Done: 12/22/22 21:47
--- NOTE | 2022-12-22 20:20 | XRay Report ---
XR chest 1V portable CLINICAL HISTORY: heart block TECHNIQUE: Single frontal radiograph of the chest was obtained. Comparison: Comparison is made to chest radiograph 08/15/2022 FINDINGS: No lines and tubes are seen. Calcified aortic knob is seen. Interstitial disease is seen. Lungs are u nderinflated with bibasilar densities. No evidence of pleural effusion or pneumothorax. IMPRESSION: Bibasilar densities may represent atelectasis, with or without superimposed aspiration/pneumonia. ACT 112: Negative or not required by law. Electronically signed by: Dex Kendall M.D. 12/22/2022 8:18 PM
--- NOTE | 2022-12-22 20:32 | History & Physical Report ---
Date of Service December 22, 2022 Assessment & Plan (1) Complete heart block: Plan: 72yo male PMHx of diabetes, CKD, kidney transplant, aortic stenosis, carotic stenosis, [place] s/p stent, bilateral BKA amputation, HTN, HLD, BPH, GERD, and CVA presents with weakness. #Complete Heart Block -presented with a few hours of dizziness/weakness. Upon EMS arrival found to have HR in 20s which improved to 40s/50s without intervention. In the ED, found to be in complete heart block. Troponin wnl. -EKG: sinus rhythm with complete heart block. QTc 451. -Chest XR: underinflated with bibasilar densities. No pleural effusion. -goal K>4, Mag >2 -transcutaneous pacer pads in place -ED spoke with Dr. Ramon (cardiology) who is aware. ?pacemaker placement tomorrow. Formal consult placed. #HTN #Adrenal insufficiency? -cont amlodipine, fludrocortisone -hold metoprolol #CAD #h/o [place] s/p stent #h/o carotid stenosis s/p TCAR -cont. statin, ASA, plavix -hold metoprolol #h/o CKD #s/p renal transplant -cont. prednisone, cyclosporine, mycophenolate #GERD -cont. esomeprazole #DM2 #h/o bilateral BLK 2/2 diabetic complications -h/o hypoglycemic episodes on previous admission per family -discussed with pharmacy; glycemic consult placed #BPH -cont. flomax DVT ppx: on home ASA and plavix; pt has bilateral BLK amputation FEN/GI: NPO in anticipation of pacemaker placement tomorrow Code Status: DNI only Dispo: PCU (2) CKD (chronic kidney disease), stage III: (3) Aortic stenosis: (4) Carotid stenosis: (5) Benign hypertension: (6) Diabetes mellitus: (7) Enlarged prostate without lower urinary tract symptoms (luts): (8) Gastroesophageal reflux disease: (9) Hypercholesterolemia: (10) Kidney replaced by transplant: (11) Stroke: History of Present Illness Chief Complaint: bradycardia Primary Care Provider: Srini Cordero MD 72yo male PMHx of diabetes, CKD, kidney transplant, aortic stenosis, carotic st enosis, DE s/p stent, bilateral BKA amputation, HTN, HLD, BPH, GERD, and CVA presents with weakness. A few hours earlier, pt had gotten up from his recliner to go eat dinner and felt dizzy and weak standing up. Associated headache. His symptoms persisted throughout dinner and when back in his recliner he seemed to have dozed off and when awoken started throwing his hands up in the air as if something were wrong. EMS was called and on arrival HR was found to be in the 20s. BP was stable at the time so with careful monitoring his HRs elevated to the 40s/50s without intervention. Denies fever, chest pain, shortness of breath, abd pain, N/V/D, constipation, dysuria. Of note he did feel a little dizzy and weak last night as well but that resolved with Tylenol. Pt also states he has been getting progressively weaker over the last few weeks, HR was never checked within that time frame. Allergies Allergy/AdvReac Type Severity Reaction Status Date / Time hydromorphone [From Dilaudid] Allergy Severe Respiratory Verified 12/22/22 20:09 Arrest gabapentin Allergy Unknown Unknown Verified 12/22/22 20:09 Home Medications Medication Instructions Recorded Confirmed Type aspirin 81 mg tablet,delayed 81 mg PO QAM 12/09/19 12/22/22 History release insulin syringe-needle U-100 0.5 #800 ea 02/03/20 12/03/22 Rx mL 30 gauge x 1/2" (BD Insulin Syringe Ultra-Fine) acetaminophen 500 mg tablet 1,000 mg PO Q6H PRN Pain 04/24/21 12/22/22 History (Tylenol Extra Strength) insulin detemir U-100 100 unit/mL 8 unit subcut HS 05/31/21 12/22/22 History subcutaneous solution (Levemir U-100 Insulin) esomeprazole magnesium 40 mg 40 mg PO QPM #90 caps 08/28/21 12/22/22 Rx capsule,delayed release tamsulosin 0.4 mg capsule 0.4 mg PO QPM #90 caps 08/28/21 12/22/22 Rx FreeStyle Devin 14 Day Sensor #6 ea 11/05/21 12/22/22 Rx (flash glucose sensor) amlodipine 5 mg tablet 5 mg PO QAM #90 tabs 11/26/21 12/22/22 Rx clopidogrel 75 mg tablet 75 mg PO QAM #90 tabs 11/26/21 12/22/22 Rx fludrocortisone 0.1 mg tablet 0.1 mg PO QAM #90 tabs 11/26/21 12/22/22 Rx metoprolol tartrate 50 mg tablet 50 mg PO BID #180 tabs 04/01/22 12/22/22 Rx ergocalciferol (vitamin D2) 1,250 1,250 mcg PO WK 04/14/22 12/22/22 History mcg (50,000 unit) capsule insulin aspart U-100 100 unit/mL 0 unit subcut TIDM 04/18/22 12/22/22 History subcutaneous solution (Novolog U-100 Insulin aspart) cyclosporine modified 100 mg 100 mg PO BID #180 caps 04/20/22 12/22/22 Rx capsule atorvastatin 40 mg tablet 40 mg PO QPM #90 tabs 08/18/22 12/22/22 Rx mycophenolate mofetil 500 mg tablet 1,000 mg PO BID #360 tabs 08/18/22 12/22/22 Rx hydrocodone 7.5 mg-acetaminophen 1 tab PO BID PRN pain #30 tabs 11/24/22 12/22/22 Rx 325 mg tablet potassium chloride 20 mEq 20 meq PO QAM 12/22/22 12/22/22 History tablet,extended release prednisone 5 mg tablet 5 mg PO QAM 12/22/22 12/22/22 History Past Med/Surg History Medical History (Updated 12/23/22 @ 17:34 by Son Ramon MD) Arthritis Atherosclerosis of [place] coronary artery without angina pectoris Benign hypertension CAD (coronary artery disease) stent x 1 (2007) Carotid artery stenosis s/p left carotid endarterectomy (1996) Neck MRA (04/29/21): Over 70% stenosis within proximal aspect of the right internal carotid artery. Minimal, less than 50% stenosis is seen within distal aspect of the left internal carotid artery. Chronic back pain Chronic kidney disease s/p kidney transplant (2000) Chronic left hip pain Diabetes mellitus IDDM Enlarged prostate without lower urinary tract symptoms (luts) Gastroesophageal reflux disease Hearing loss Heart attack 2008 Hiatal hernia Hypercholesterolemia Hypertension Rx'd fludrocortisone for previous hypotension (? orthostatic) Lumbar radicular pain Lumbar spondylosis Myofascial pain Stroke CVA (1996) TIA (04/23/21) Surgical History H/O left wrist surgery History of anesthesia reaction Hallucinations, combative History of cardiac cath stent x 1 (2007) History of carotid endarterectomy 1996 (right) History of esophagogastroduodenoscopy (EGD) History of hip surgery Right ORIF Kidney replaced by transplant S/P bilateral BKA (below knee amputation) Status post carotid surgery Left (1996) Transplanted kidney 2000 Family History Father Hearing loss Heart disease Family history of diabetes mellitus Mother Hypertension Family history of diabetes mellitus Other No family history of adverse response to anesthesia No family history of bleeding disorder Denies family history of Ovarian cancer Prostate cancer Myocardial infarction Breast cancer Colorectal cancer Social History Smoking Status: Never smoker Tobacco Type: Smokeless Tobacco (Dip or Chew) Second Hand Exposure: No; Do You Dip or Chew Tobacco: Yes; Tobacco Cessation Education Requested by Patient: No Hx Alcohol Use: Yes Alcohol type: hard liquor Hx Substance Use: No Preferred Language: Latvian Communication Ability: Effective Visual Impairment: Severely Limited Hearing Ability: Hard of Hearing Industrial Relations Specialist Required: No Beliefs That Will Affect Care: None marital status: Current Living Situation: Spouse current occupational status: retired Other Information That Helps Us Care for You: No Feels Safe at Home: Yes Safety Concerns: Feels Safe At This Time Childhood Exposure to Second-Hand Smoke: No Dental Care, Regularly: No Physical Activity Frequency: Does not Exercise Seatbelt Use: always Sunscreen Use: No Assistive Devices: Walker Review of Systems Review of Systems: All systems reviewed & are unremarkable except as noted in HPI & below Physical Exam Physical Exam: Constitutional: in no acute distress, pleasant, intact memory. AOx3. Vitals as above. HEENT: No scleral injection or discharge.Moist mucous membranes. EOMI. PERRL. Neck: Supple without lymphadenopathy or thyromegaly. Trachea midline. Lungs: Clear to auscultation bilaterally with good effort. Cardiac: Irregular rhythm. Bradycardic. No JVD. +holosystolic murmur. Abdomen: Bowel sounds present. Soft, nontender, and nondistended.No guarding. No hepatosplenomegaly. MSK: No cyanosis or clubbing. +bilateral BKA amputation. Skin: No rashes, warm, dry. Neurologic: no focal deficits Results & Data Results & Data Vital Signs (Past 12 Hours) Vital Signs Temp Pulse Resp BP Pulse Ox O2 Del Method 12/22/22 19:26 49 L 12/22/22 19:19 49 L 16 99 Room Air 12/22/22 19:23 36.8 C 49 L 16 122/59 L 97 Room Air Supervising Physician Co-Signing Physician Notes Attending addendum: I have physically seen this patient, have supervised the medical residents activities, and agree with the H&P unless as otherwise noted. Assessment and Plan: Complete heart block/CAD/hypertension/history of stent and DE- Heart rate in the 40s with maintained systolic blood pressure in the 140s Target potassium greater than equal to 4, magnesium greater than or equal to 2 Continue transcutaneous pacer pads in place Atropine 0.5 mg p.o. if heart rate is into the 30s and/or develops symptoms otherwise If not responsive to that, will start dopamine drip at 5 mics per kilo per minute Continue aspirin 81 mg daily and Plavix 75 mg daily Holding metoprolol Cardiology has been consulted and is aware, and will see patient in a.m. CKD/status post renal transplant- Continue prednisone, cyclosporine and mycophenolate Low threshold for stress dose steroids if needed GERD- Change Esomeprazole to pantoprazole per formulary interchange Diabetes mellitus- Glycemic consult as noted BPH- Continue tamsulosin at bedtime Remaining orders and notations as noted Resident Activity Tracking Resident Involvement: Resident Care Provided Care Provided: Adult Hospital Medicine
[2022-12-22 20:51] LABS: Basophils # (auto) 0.02 K/uL (0-0.2); Basophils % (auto) 0.2 %; Eosinophils # (auto) 0.07 K/uL (0-0.50); Eosinophils % (auto) 0.9 %; Hematocrit (blood only) 37.8 % (42.0-52.0); Hemoglobin 12.6 g/dl (14.0-18.0); Immature Granulocytes # (auto) 0.02 K/uL (0.01-0.20); Immature Granulocytes % (auto) 0.2 %; Lymphocytes # (auto) 0.72 K/uL (1.2-3.4); Lymphocytes % (auto) 8.9 %; Mean Corpuscular Hemoglobin 28.9 pg (25.0-34.0); Mean Corpuscular Hgb Conc 33.3 g/dL (32.0-36.0); Mean Corpuscular Volume 86.7 fL (80.0-100.0); Mean Platelet Volume 11.5 fL (9.4-12.4); Monocytes % (auto) 4.9 %; Neutrophils # (auto) 6.89 K/uL (1.40-6.50); Neutrophils % (auto) 84.9 %; Platelet Count 198 K/uL (130-400); RDW Standard Deviation 44.3 fL (36.4-46.3); Red Blood Count 4.36 M/uL (4.70-6.10); White Blood Count 8.12 K/ul (4.8-10.8)
[2022-12-22 20:59] LABS: Est GFR (African American) 104.7 ml/min
[2022-12-22 21:00] LABS: Albumin Globulin Ratio 1.2 (0.9-2); Albumin Level 3.1 gm/dl (3.4-5.0); BUN Creatinine Ratio 42.7 (10-20); Bilirubin,Total 0.5 mg/dl (0.2-1.0); Calcium 8.9 mg/dl (8.6-10.3); Creatinine Clr Calc Pharmacy 83.6 ml/min; Est GFR (Non-African American) 90.4 ml/min; Globulin 2.6 gm/dl (2.5-4.0); Total Protein 5.7 gm/dl (6.0-8.3)
[2022-12-22 21:04] LABS: Troponin I High Sensitivity 9.4 pg/ml (0-20)
[2022-12-22] MEDS ORDERED: PHARMACY GLYCEMIC MGMT CONSULT PRN (21:22)
[2022-12-22 22:05] LABS: Magnesium 1.4 mg/dl (1.7-2.4)
[2022-12-22] MEDS ORDERED: ONDANSETRON INJ 2 MG/ML 2 ML VIAL IV PRN (22:16)
[2022-12-22] MEDS ORDERED: SODIUM CHLORIDE 0.9% 1000ML 1,000 ML IV SCH (22:16)
[2022-12-22 22:58] LABS: Lyme Ab IgG w/WB Rflx Negative (Negative); Lyme Ab IgM w/WB Rflx Negative (Negative)
[2022-12-22] MEDS ORDERED: DEXTROSE 50% 50 ML SYRINGE IV PRN (23:00)
[2022-12-22] MEDS ORDERED: GLUCOSE 40% GEL 15 GM TUBE PO PRN (23:00)
[2022-12-22] MEDS ORDERED: CARBOHYDRATES FOR HYPOGLYCEMIA PO PRN (23:00)
[2022-12-22] MEDS ORDERED: GLUCOSE 10 TAB/TUBE PO PRN (23:00)
[2022-12-22] MEDS ORDERED: GLUCAGON FOR INJ 1 MG VIAL IM PRN (23:00)
[2022-12-22] MEDS: MAGNESIUM SULFATE / D5W 1 GM/100 ML BAG IV SCH (23:16)
[2022-12-22] MEDS: LANTUS PER UNIT CHARGE SQ SCH (23:18)
[2022-12-22] MEDS: INSULIN ASPART PER UNIT CHARGE SC SCH (23:18)
[2022-12-22] MEDS: MYCOPHENOLATE MOFETIL 250 MG CAP PO SCH (23:52)
[2022-12-22] MEDS: cycloSPORINE 100 MG CAP PO SCH (23:52)
[2022-12-23] MEDS: MAGNESIUM SULFATE / D5W 1 GM/100 ML BAG IV SCH (01:10)
[2022-12-23] MEDS ORDERED: NSS + 20MEQ KCL 20 MEQ/1,000 ML BAG IV SCH (05:00)
[2022-12-23 05:48] LABS: Basophils # (auto) 0.02 K/uL (0-0.2); Basophils % (auto) 0.3 %; Eosinophils % (auto) 1.5 %; Hemoglobin 11.7 g/dl (14.0-18.0); Immature Granulocytes # (auto) 0.02 K/uL (0.01-0.20); Immature Granulocytes % (auto) 0.3 %; Lymphocytes # (auto) 1.05 K/uL (1.2-3.4); Lymphocytes % (auto) 16.1 %; Mean Corpuscular Hemoglobin 29.3 pg (25.0-34.0); Mean Corpuscular Hgb Conc 34.4 g/dL (32.0-36.0); Mean Platelet Volume 11.4 fL (9.4-12.4); Monocytes # (auto) 0.46 K/uL (0.11-0.59); Neutrophils # (auto) 4.89 K/uL (1.40-6.50); Neutrophils % (auto) 74.8 %; Platelet Count 173 K/uL (130-400); RDW Coefficient of Variation 14.1 % (11.5-14.5); RDW Standard Deviation 43.7 fL (36.4-46.3); White Blood Count 6.54 K/ul (4.8-10.8)
[2022-12-23 06:04] LABS: Albumin Globulin Ratio 1.4 (0.9-2); Albumin Level 2.9 gm/dl (3.4-5.0); BUN Creatinine Ratio 33.3 (10-20); Bilirubin,Total 0.5 mg/dl (0.2-1.0); Calcium 8.6 mg/dl (8.6-10.3); Creatinine Clr Calc Pharmacy 75.8 ml/min; Est GFR (African American) 103.1 ml/min; Est GFR (Non-African American) 88.9 ml/min; Globulin 2.1 gm/dl (2.5-4.0)
[2022-12-23] MEDS: INSULIN ASPART PER UNIT CHARGE SC SCH ×4 (06:21→20:49)
[2022-12-23] MEDS ORDERED: ATROPINE SULFATE 0.1 MG/ML 5ML SYR IV ONE ×2 (06:33→07:05)
[2022-12-23] MEDS ORDERED: ATROPINE SULFATE 0.1 MG/ML 10ML SYR IV STA ×2 (07:00→08:15)
--- NOTE | 2022-12-23 07:01 | Hospitalist Progress Note ---
Date of Service December 23, 2022 Assessment & Plan (1) Complete heart block: Plan: 72yo male PMHx of diabetes, CKD, kidney transplant, aortic stenosis, carotic stenosis, [place] s/p stent, bilateral BKA amputation, HTN, HLD, BPH, GERD, and CVA presents with weakness. #Complete Heart Block -Due to need for atropine and headache, pt transferred to ICU, appreciate management recs -S/p permanent pacemaker placed on 12/23/22 -Management per electrophysiology, appreciate recs -Chest XR: underinflated with bibasilar densities. No pleural effusion. -goal K>4, Mag >2 #HTN #Adrenal insufficiency? -cont amlodipine, fludrocortisone -hold metoprolol #CAD #h/o [place] s/p stent #h/o carotid stenosis s/p TCAR -cont. statin, ASA, plavix -hold metoprolol #h/o CKD #s/p renal transplant -cont. prednisone, cyclosporine, mycophenolate #GERD -cont. esomeprazole #DM2 #h/o bilateral BLK 2/2 diabetic complications -h/o hypoglycemic episodes on previous admission per family -discussed with pharmacy; glycemic consult placed, ICU glycemic protocol #BPH -cont. flomax DVT ppx: on home ASA and plavix; pt has bilateral BLK amputation FEN/GI: Heart Healty, DM2 Code Status: DNI only Dispo: ICU, S/P pacemaker (2) CKD (chronic kidney disease), stage III: (3) Aortic stenosis: (4) Carotid stenosis: (5) Benign hypertension: (6) Diabetes mellitus: (7) Enlarged prostate without lower urinary tract symptoms (luts): (8) Gastroesophageal reflux disease: (9) Hypercholesterolemia: (10) Kidney replaced by transplant: (11) Stroke: Admission and Anticipated Discharge Date Admission Date: December 22, 2022 Supervising Physician Co-Signing Physician Notes I personally examined the patient and verified all berger points of history and exam, discussed case, and agree with decision making with Dr Acuña. Feeling okay, pain controlled. At the same time, somewhat delirious. Family updated at the bedside. They note that he does get delirious usually whenever he has any type of anesthesia/sedation for procedure. Vitals noted, in general he is awake and alert pleasant but confused. No distress. Breathing unlabored no accessory muscle use good effort. Skin shows no rashes no pallor or icterus. Neuro without focal deficits. Complete heart blockstatus post pacer. Per cardiology. Delirium/metabolic encephalopathyhis track record is that it tends to clear fairly quickly, hopefully well. Discussed with family that sometimes delirium do persist due to the hospital environmentfollow closely. Subjective Patient seen at bedside this morning prior to being taken to EP lab for pacemaker placement. Last night patient had episode of bradycardia with heart rate down into the 30s and was sequentially given atropine and was transferred to the ICU. Currently patient seems to be asymptomatic and heart rate at the time my arrival was in the high 40s, low 50s. Not having any chest pain, shortness of breath, or headache. No new complaints at this time. Review of Systems Review of Systems: Per HPI Physical Exam Constitutional: well developed and well nourished Eyes: + anicteric sclerae and PERRL Neck: normal visual inspection Respiratory: normal respiratory effort Auscultation: + crackles Cardiovascular: Rate/Rhythm: regular rhythm and + bradycardic Heart Sounds: + murmur Gastrointestinal (Abdomen): Inspection/Auscultation: abdomen normal to inspection Musculoskeletal: Extremities: + amputation noted (b/l BKA) Skin: no rashes, warm and dry Neurologic: awake Psychiatric: A+Ox3, euthymic affect Results & Data Results & Data Vital Signs (Past 12 Hours) Vital Signs Temp Pulse Pulse Resp BP BP Pulse Ox 12/23/22 06:44 45 L 99/44 L 12/23/22 06:23 39 L 17 117/40 L 12/23/22 05:14 47 L 153/74 H 12/23/22 04:45 49 L 107/47 L 12/23/22 02:48 36.3 C L 50 L 147/63 H 96 12/22/22 23:10 50 L 12/22/22 22:22 36.5 C 53 L 15 97/41 L 95 12/22/22 19:26 49 L 12/22/22 19:19 49 L 16 99 12/22/22 19:23 36.8 C 49 L 16 122/59 L 97 O2 Del Method 12/23/22 06:44 12/23/22 06:23 12/23/22 05:14 12/23/22 04:45 12/23/22 02:48 Room Air 12/22/22 23:10 12/22/22 22:22 Room Air 12/22/22 19:26 12/22/22 19:19 Room Air 12/22/22 19:23 Room Air
[2022-12-23] MEDS ORDERED: STAT IV Infusion **Titration per Protocol STA (07:08)
[2022-12-23] MEDS ORDERED: ATROPINE SULFATE 0.1 MG/ML 10ML SYR IV ONE (07:24)
[2022-12-23] MEDS: DOPamine / D5W 400 MG/250 ML BAG IV SCH (07:41)
--- NOTE | 2022-12-23 07:45 | Critical Care Consultation ---
Date of Consultation December 23, 2022 Assessment & Plan (1) CHB (complete heart block): (2) CKD (chronic kidney disease), stage III: (3) Acute respiratory failure with hypoxia: (4) S/P bilateral BKA (below knee amputation): (5) Diabetes mellitus: (6) Gastroesophageal reflux disease: (7) Hypercholesterolemia: (8) Kidney replaced by transplant: (9) Stroke: (10) Weakness: (11) Aortic stenosis: Plan Reason Critically Ill: 72-year-old male past medical history of renal transplant on prednisone, tacrolimus and fludrocortisone, hypertension, BPH admitted to the hospital for heart block. Patient went into complete heart block with hypotension. Sent to the ICU for further management Neuro - [facility] ICU: Negative --History of old stroke with left-sided endarterectomy Has chronic right-sided facial droop This was confirmed by talking to the patient's on the phone at 12/23/2022, 7:52 AM Continue with neurochecks, if there is any clinical deterioration, stroke alert will be called Cardiac - -- Complete heart block Currently on dopamine Patient will need transvenous pacemaker Pacer pads also in place if need be Give atropine as needed --Hypertension Hold blood pressure medication along with negative inotropes Respiratory - -- Chronic interstitial changes of the lung Appreciated initially on the CT chest in April 2022 when the patient had COVID Latest chest x-ray shows the same No need for oxygenation right now. Continue with O2 as needed to keep O2 saturation greater than 90 GI - -- GERD Continue with pantoprazole RENAL/LYTES - -- History of renal transplant On mycophenolate, cyclosporine, prednisone 5 mg - -- BPH On tamsulosin at home ENDO - -- Chronic prednisone use with adrenal insufficiency On fludrocortisone HEME - -- Monitor H&H ID - -- Chronically immunosuppressed No clear signs of infection right now -- DNI --Prophylaxis VTE: None GI: Pantoprazole Lines: Peripheral Diet: N.p.o. Plan: Start the patient on dopamine 5 mcgs Atropine as needed for total of 3 mg. Cardiology has been consulted by the primary team for transvenous pacemaker In the interim keep the patient on transvenous pads with back up rate of 60. Give midazolam as sedative before initiating the pads. Systolic blood pressure was in the 100s at the time of examination with MAP in the 60s. I have personally spent 62 minutes of critical care time in the direct kolton gement of this patient. This is a life/limb threatening event. This includes time spent evaluating patient, direct bedside care, chart review, placing orders, interpretation of diagnostic studies, discussion with consultants, patient, and family members, as well as other required patient management activities. This time is exclusive of all separately billable procedures, and teaching time and separate from and in addition to any other critical care service time. History of Present Illness Attending Physician: Venkat Staples MD History of Present Illness 72-year-old male presented to the hospital with complaints of dizziness and generalized weakness Past medical history: Diabetes type 2, kidney transplant on cyclosporine, mycophenolate and 5 mg of prednisone, GERD stenosis with left-sided endarterectomy and right-sided stroke, coronary artery disease status post stent, GERD Patient was found to be in complete heart block and was admitted to telemetry [facility]. Early in the morning today patient was found to be hypertensive and heart rate in the 20s. Was transferred to the ICU for further management. At the time of examination in the ICU patient's heart rate was in the 50s. He was not 2-1 complete heart block. He had gotten 0.5 mg of atropine prior to coming here. He is on metoprolol 50 mg twice daily last dose being 12/22/2022 and at night. Denied any chest pain, no shortness of breath, no headache. He does have right-sided facial droop which is chronic as per the patient. 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 Denies any dizziness right now. Does complain of generalized weakness and fatigue. Social history: Lifetime non-smoker. Used to chew tobacco. Worked on the farm intermittently. Allergies Allergy/AdvReac Type Severity Reaction Status Date / Time hydromorphone [From Dilaudid] Allergy Severe Respiratory Verified 12/22/22 20:09 Arrest gabapentin Allergy Unknown Unknown Verified 12/22/22 20:09 Home Medications Medication Instructions Recorded Confirmed Type aspirin 81 mg tablet,delayed 81 mg PO QAM 12/09/19 12/22/22 History release insulin syringe-needle U-100 0.5 #800 ea 02/03/20 12/03/22 Rx mL 30 gauge x 1/2" (BD Insulin Syringe Ultra-Fine) acetaminophen 500 mg tablet 1,000 mg PO Q6H PRN Pain 04/24/21 12/22/22 History (Tylenol Extra Strength) insulin detemir U-100 100 unit/mL 8 unit subcut HS 05/31/21 12/22/22 History subcutaneous solution (Levemir U-100 Insulin) esomeprazole magnesium 40 mg 40 mg PO QPM #90 caps 08/28/21 12/22/22 Rx capsule,delayed release tamsulosin 0.4 mg capsule 0.4 mg PO QPM #90 caps 08/28/21 12/22/22 Rx FreeStyle Devin 14 Day Sensor #6 ea 11/05/21 12/22/22 Rx (flash glucose sensor) amlodipine 5 mg tablet 5 mg PO QAM #90 tabs 11/26/21 12/22/22 Rx clopidogrel 75 mg tablet 75 mg PO QAM #90 tabs 11/26/21 12/22/22 Rx fludrocortisone 0.1 mg tablet 0.1 mg PO QAM #90 tabs 11/26/21 12/22/22 Rx metoprolol tartrate 50 mg tablet 50 mg PO BID #180 tabs 04/01/22 12/22/22 Rx ergocalciferol (vitamin D2) 1,250 1,250 mcg PO WK 04/14/22 12/22/22 History mcg (50,000 unit) capsule insulin aspart U-100 100 unit/mL 0 unit subcut TIDM 04/18/22 12/22/22 History subcutaneous solution (Novolog U-100 Insulin aspart) cyclosporine modified 100 mg 100 mg PO BID #180 caps 04/20/22 12/22/22 Rx capsule atorvastatin 40 mg tablet 40 mg PO QPM #90 tabs 08/18/22 12/22/22 Rx mycophenolate mofetil 500 mg tablet 1,000 mg PO BID #360 tabs 08/18/22 12/22/22 Rx hydrocodone 7.5 mg-acetaminophen 1 tab PO BID PRN pain #30 tabs 11/24/22 12/22/22 Rx 325 mg tablet potassium chloride 20 mEq 20 meq PO QAM 12/22/22 12/22/22 History tablet,extended release prednisone 5 mg tablet 5 mg PO QAM 12/22/22 12/22/22 History Patient History Medical History Arthritis Atherosclerosis of [place] coronary artery without angina pectoris Benign hypertension CAD (coronary artery disease) Carotid artery stenosis Chronic back pain Chronic kidney disease Chronic left hip pain Diabetes mellitus Enlarged prostate without lower urinary tract symptoms (luts) Gastroesophageal reflux disease Hearing loss Heart attack Hiatal hernia Hypercholesterolemia Hypertension Lumbar radicular pain Lumbar spondylosis Myofascial pain Stroke Surgical History H/O left wrist surgery History of anesthesia reaction History of cardiac cath History of carotid endarterectomy History of esophagogastroduodenoscopy (EGD) History of hip surgery Kidney replaced by transplant S/P bilateral BKA (below knee amputation) Status post carotid surgery Transplanted kidney Family History Father Hearing loss Heart disease Family history of diabetes mellitus Mother Hypertension Family history of diabetes mellitus Other No family history of adverse response to anesthesia No family history of bleeding disorder Denies family history of Ovarian cancer Prostate cancer Myocardial infarction Breast cancer Colorectal cancer Social History Smoking Status: Never smoker Tobacco Type: Smokeless Tobacco (Dip or Chew) Second Hand Exposure: No; Do You Dip or Chew Tobacco: Yes; Tobacco Cessation Education Requested by Patient: No Hx Alcohol Use: Yes Alcohol type: hard liquor Hx Substance Use: No Preferred Language: Armenian Communication Ability: Effective Visual Impairment: Severely Limited Hearing Ability: Hard of Hearing Skills Instructor Required: No Beliefs That Will Affect Care: None marital status: Current Living Situation: Spouse current occupational status: retired Other Information That Helps Us Care for You: No Feels Safe at Home: Yes Safety Concerns: Feels Safe At This Time Childhood Exposure to Second-Hand Smoke: No Dental Care, Regularly: No Physical Activity Frequency: Does not Exercise Seatbelt Use: always Sunscreen Use: No Assistive Devices: Prosthesis and Walker Review of Systems Review of Systems: All systems reviewed & are unremarkable except as noted in HPI & below Physical Exam Physical Exam: Constitutional: No acute distress HEENT: EOMI, PERRLA, minimal right-sided facial droop (chronic as per the patient) Respiratory system: Decreased air entry bilaterally, no wheeze, no rhonchi, positive crackles bilateral lobes more on the left side CVS: S1-S2 positive, Positive 3 out of 6 systolic murmur appreciated best at the apex Abdomen: Soft, nontender, nondistended, positive bowel sounds x4 Extremities: +2 pulses bilaterally radialis/ dorsalis pedis, no cyanosis, no edema, bilateral BKA Neuro: Awake alert oriented x3, strength 5 out of 5 bilateral upper and lower extremity, cranial nerves II to XII grossly intact Psych: Normal mood and affect G/U: No Yu Skin: no rashes, warm and dry Lymphatic: no cervical or axillary lymphadenopathy Results & Data Results & Data Vital Signs (Past 12 Hours) Vital Signs Temp Pulse Pulse Resp BP Pulse Ox O2 Del Method 12/23/22 07:09 47 L 136/60 12/23/22 06:44 45 L 99/44 L 12/23/22 06:23 39 L 17 117/40 L 12/23/22 05:14 47 L 153/74 H 12/23/22 04:45 49 L 107/47 L 12/23/22 02:48 36.3 C L 50 L 147/63 H 96 Room Air 12/22/22 23:10 50 L 12/22/22 22:22 36.5 C 53 L 15 97/41 L 95 Room Air Laboratory Results 12/23/22 05:27 12/23/22 05:27 Coding Level of Care Code 58360 CRITICAL CARE 1ST 30-74M Diagnoses CHB (complete heart block) I44.2 CKD (chronic kidney disease), stage III N18.30 Acute respiratory failure with hypoxia J96.01 S/P bilateral BKA (below knee amputation) Z89.512; Z89.511 Diabetes mellitus E11.9 Gastroesophageal reflux disease K21.9 Hypercholesterolemia E78.00 Kidney replaced by transplant Z94.0 Stroke I63.9 Weakness R53.1 Aortic stenosis I35.0 Time Spent (min) 62
[2022-12-23] MEDS ORDERED: ACETAMINOPHEN 1000 MG/100 ML IV IV ONE ×2 (08:01→18:16)
[2022-12-23] MEDS ORDERED: ACETAMINOPHEN 1,000 MG/100 ML VIAL IV STA ×2 (08:11→18:14)
--- NOTE | 2022-12-23 08:49 | Cardiology Consultation ---
Date of Consultation December 23, 2022 Assessment & Plan (1) CHB (complete heart block): (2) Aortic stenosis: (3) CAD (coronary artery disease): Plan 1. Symptomatic bradycardia: He clearly has some symptoms associated with development of complete heart block. It is curious that in July of 2022 he had a normal EKG without conduction abnormalities. He now appears to have complete heart block with a wide complex escape rhythm. No electrolyte derangements or other notable reversible factors. No proximate cause such as recent infection to explain the acute development of symptoms or heart block. With his preserved LV systolic function appears to be a good candidate for simple pacemaker. I did explain the risks, benefits and alternatives to the patient and given his decompensation will plan on progressing urgently. 2. Aortic stenosis: This appears to be non severe. It is possible the progression of his aortic stenosis is also resulted in some conduction abnormalities. He appears to have very calcified mitral annulus and aortic valve. Do not believe his current symptoms are related to aortic stenosis. 3. Coronary artery disease: He has known severe coronary disease in 1 prior intervention to the circumflex quite remotely. He is on aggressive risk factor modification. However, given his sedentary state he is not overtly symptomatic overall LV function appears to be preserved. History of Present Illness Reason for Consultation: bradycardia, heart block Requesting Physician: Wili Attending Physician: Olman Lee DO History of Present Illness the patient is a 72-year-old gentleman with an extensive cardiovascular history to include coronary artery disease, peripheral vascular disease and valvular heart disease who presented to the hospital yesterday after experiencing worsening weakness, dizziness and possibly an episode of syncope. He also suffers from poorly controlled diabetes, tobacco abuse and renal failure status post renal transplant. Patient states that for 2 days he has not been feeling w ell. This is manifest by the above symptoms. Yesterday morning at breakfast he felt quite dizzy and may have lost consciousness briefly while sitting. Due to the persistent nature of his symptoms he presented to the emergency room was discovered to have bradycardia in the setting of complete heart block. The patient was initially sent to the telemetry unit at he was quite stable, but apparently this morning he complained of a headache. This is felt to represent a symptom associated with his bradycardia and he was administered atropine. This failed to improve his heart rate or symptoms and he was transferred to the intensive care unit where he is placed on a dopamine infusion. The patient continues to have a headache and some associated nausea. He has a very sedentary individual due to bilateral below-knee amputations. He does have prosthetic limbs and is able to ambulate with a walker at times. He does not report other limitations such as breathing difficulty or chest pain. He is generally not aware of palpitations. According to his family he occasionally has some difficulty with speech and mentation early in the morning which tends to improve as the day goes on. He denies any recent illnesses. Specifically he denies any recent fevers or chills. He denied diffuse myalgias. No coughing. Allergies Allergy/AdvReac Type Severity Reaction Status Date / Time hydromorphone [From Dilaudid] Allergy Severe Respiratory Verified 12/22/22 20:09 Arrest gabapentin Allergy Unknown Unknown Verified 12/22/22 20:09 Home Medications Medication Instructions Recorded Confirmed Type aspirin 81 mg tablet,delayed 81 mg PO QAM 12/09/19 12/22/22 History release insulin syringe-needle U-100 0.5 #800 ea 02/03/20 12/03/22 Rx mL 30 gauge x 1/2" (BD Insulin Syringe Ultra-Fine) acetaminophen 500 mg tablet 1,000 mg PO Q6H PRN Pain 04/24/21 12/22/22 History (Tylenol Extra Strength) insulin detemir U-100 100 unit/mL 8 unit subcut HS 05/31/21 12/22/22 History subcutaneous solution (Levemir U-100 Insulin) esomeprazole magnesium 40 mg 40 mg PO QPM #90 caps 08/28/21 12/22/22 Rx capsule,delayed release tamsulosin 0.4 mg capsule 0.4 mg PO QPM #90 caps 08/28/21 12/22/22 Rx FreeStyle Devin 14 Day Sensor #6 ea 11/05/21 12/22/22 Rx (flash glucose sensor) amlodipine 5 mg tablet 5 mg PO QAM #90 tabs 11/26/21 12/22/22 Rx clopidogrel 75 mg tablet 75 mg PO QAM #90 tabs 11/26/21 12/22/22 Rx fludrocortisone 0.1 mg tablet 0.1 mg PO QAM #90 tabs 11/26/21 12/22/22 Rx metoprolol tartrate 50 mg tablet 50 mg PO BID #180 tabs 04/01/22 12/22/22 Rx ergocalciferol (vitamin D2) 1,250 1,250 mcg PO WK 04/14/22 12/22/22 History mcg (50,000 unit) capsule insulin aspart U-100 100 unit/mL 0 unit subcut TIDM 04/18/22 12/22/22 History subcutaneous solution (Novolog U-100 Insulin aspart) cyclosporine modified 100 mg 100 mg PO BID #180 caps 04/20/22 12/22/22 Rx capsule atorvastatin 40 mg tablet 40 mg PO QPM #90 tabs 08/18/22 12/22/22 Rx mycophenolate mofetil 500 mg tablet 1,000 mg PO BID #360 tabs 08/18/22 12/22/22 Rx hydrocodone 7.5 mg-acetaminophen 1 tab PO BID PRN pain #30 tabs 11/24/22 12/22/22 Rx 325 mg tablet potassium chloride 20 mEq 20 meq PO QAM 12/22/22 12/22/22 History tablet,extended release prednisone 5 mg tablet 5 mg PO QAM 12/22/22 12/22/22 History Patient History Medical History (Updated 12/23/22 @ 17:34 by Son Ramon MD) Arthritis Atherosclerosis of [place] coronary artery without angina pectoris Benign hypertension CAD (coronary artery disease) stent x 1 (2007) Carotid artery stenosis s/p left carotid endarterectomy (1996) Neck MRA (04/29/21): Over 70% stenosis within proximal aspect of the right internal carotid artery. Minimal, less than 50% stenosis is seen within distal aspect of the left internal carotid artery. Chronic back pain Chronic kidney disease s/p kidney transplant (2000) Chronic left hip pain Diabetes mellitus IDDM Enlarged prostate without lower urinary tract symptoms (luts) Gastroesophageal reflux disease Hearing loss Heart attack 2007 Hiatal hernia Hypercholesterolemia Hypertension Rx'd fludrocortisone for previous hypotension (? orthostatic) Lumbar radicular pain Lumbar spondylosis Myofascial pain Stroke CVA (1996) TIA (04/23/21) Surgical History H/O left wrist surgery History of anesthesia reaction Hallucinations, combative History of cardiac cath stent x 1 (2007) History of carotid endarterectomy 1996 (right) History of esophagogastroduodenoscopy (EGD) History of hip surgery Right ORIF Kidney replaced by transplant S/P bilateral BKA (below knee amputation) Status post carotid surgery Left (1996) Transplanted kidney 2000 Family History Father Hearing loss Heart disease Family history of diabetes mellitus Mother Hypertension Family history of diabetes mellitus Other No family history of adverse response to anesthesia No family history of bleeding disorder Denies family history of Ovarian cancer Prostate cancer Myocardial infarction Breast cancer Colorectal cancer Social History Smoking Status: Never smoker Tobacco Type: Smokeless Tobacco (Dip or Chew) Second Hand Exposure: No; Do You Dip or Chew Tobacco: Yes; Tobacco Cessation Education Requested by Patient: No Hx Alcohol Use: Yes Alcohol type: hard liquor Hx Substance Use: No Preferred Language: Tongan Communication Ability: Effective Visual Impairment: Severely Limited Hearing Ability: Hard of Hearing Elevator Erector Helper Required: No Beliefs That Will Affect Care: None marital status: Current Living Situation: Spouse current occupational status: retired Other Information That Helps Us Care for You: No Feels Safe at Home: Yes Safety Concerns: Feels Safe At This Time Childhood Exposure to Second-Hand Smoke: No Dental Care, Regularly: No Physical Activity Frequency: Does not Exercise Seatbelt Use: always Sunscreen Use: No Assistive Devices: Walker Review of Systems Review of Systems: per HPI Physical Exam Physical Exam: The patient is alert and oriented. Mood and affect appeared normal. He answered all questions appropriately. uncomfortable. Nauseated. HEENT: Pupils are equal and reactive to light and accommodation. Extraocular movements are intact. The sclerae are anicteric. Neuro: Cranial nerves intact Lungs: Clear to auscultation bilaterally. He has good air movement without use of accessory muscles. No rales wheezes or rhonchi. Cardiac: Heart demonstrates a regular rate and rhythm Although slow. Normal S1 and S2. crescendo systolic murmur. Pulses: The patient has palpable radial pulses bilaterally that are equal in intensity Extremities: There was no evidence of hypoperfusion. Bilateral below-knee amputations. Skin: I did not appreciate any rashes on examination today. Results & Data Vital Signs (Past 12 Hours) Vital Signs Temp Pulse Pulse Resp BP BP Pulse Ox 12/23/22 08:30 56 L 22 119/41 L 90 04/11/23 08:00 36.5 C 12/23/22 08:00 53 L 21 126/54 L 88 L 12/23/22 07:45 0 L 22 109/35 L 89 L 12/23/22 07:43 50 L 21 139/41 L 92 12/23/22 07:40 49 L 16 116/48 L 90 12/23/22 07:34 50 L 12 106/46 L 92 12/23/22 07:09 47 L 136/60 12/23/22 06:44 45 L 99/44 L 12/23/22 06:23 39 L 17 117/40 L 12/23/22 05:14 47 L 153/74 H 12/23/22 04:45 49 L 107/47 L 12/23/22 02:48 36.3 C L 50 L 147/63 H 96 12/22/22 23:10 50 L 12/22/22 22:22 36.5 C 53 L 15 97/41 L 95 O2 Del Method O2 Flow Rate 12/23/22 08:30 Nasal Cannula 2 12/23/22 08:00 12/23/22 08:00 Room Air 12/23/22 07:45 Room Air 12/23/22 07:43 Room Air 12/23/22 07:40 Room Air 12/23/22 07:34 Room Air 12/23/22 07:09 12/23/22 06:44 12/23/22 06:23 12/23/22 05:14 12/23/22 04:45 12/23/22 02:48 Room Air 12/22/22 23:10 12/22/22 22:22 Room Air Laboratory Results Abnormal Lab Results 12/22/22 12/22/22 12/22/22 19:45 19:45 19:45 WBC 8.12 RBC 4.36 L Hgb 12.6 L Hct 37.8 L MCV 86.7 MCH 28.9 MCHC 33.3 RDW Std Deviation 44.3 RDW Coeff of Natacha 14.0 Plt Count 198 MPV 11.5 Immature Gran % (Auto) 0.2 Neut % (Auto) 84.9 Lymph % (Auto) 8.9 [place] % (Auto) 4.9 Eos % (Auto) 0.9 Baso % (Auto) 0.2 Neut # (Auto) 6.89 H Lymph # (Auto) 0.72 L [place] # (Auto) 0.40 Eos # (Auto) 0.07 Baso # (Auto) 0.02 Immature Gran # (Auto) 0.02 Sodium 138 Potassium 4.0 Chloride 110 H Carbon Dioxide 22 Anion Gap 6 BUN 32 H Creatinine 0.75 Est Cr Clr Drug Dosing 83.6 Est GFR ( Amer) 104.7 Est GFR (Non-Af Amer) 90.4 BUN/Creatinine Ratio 42.7 H Glucose 188 H POC Glucose Calcium 8.9 Magnesium 1.4 L Total Bilirubin 0.5 AST 14 ALT 9 Alkaline Phosphatase 77 Troponin I High Sens 9.4 Total Protein 5.7 L Albumin 3.1 L Globulin 2.6 Albumin/Globulin Ratio 1.2 Lipase 7 L Lyme Disease IgG Ab Lyme Disease IgM Ab SARS-CoV-2, RNA, NAAT NEGATIVE 12/22/22 12/22/22 12/22/22 19:45 21:03 22:19 WBC RBC Hgb Hct MCV MCH MCHC RDW Std Deviation RDW Coeff of Natacha Plt Count MPV Immature Gran % (Auto) Neut % (Auto) Lymph % (Auto) [place] % (Auto) Eos % (Auto) Baso % (Auto) Neut # (Auto) Lymph # (Auto) [place] # (Auto) Eos # (Auto) Baso # (Auto) Immature Gran # (Auto) Sodium Potassium Chloride Carbon Dioxide Anion Gap BUN Creatinine Est Cr Clr Drug Dosing Est GFR ( Amer) Est GFR (Non-Af Amer) BUN/Creatinine Ratio Glucose POC Glucose 167 H Calcium Magnesium Cancelled Total Bilirubin AST ALT Alkaline Phosphatase Troponin I High Sens Total Protein Albumin Globulin Albumin/Globulin Ratio Lipase Lyme Disease IgG Ab Negative Lyme Disease IgM Ab Negative SARS-CoV-2, RNA, NAAT 12/23/22 12/23/22 12/23/22 05:27 05:27 05:49 WBC 6.54 RBC 4.00 L Hgb 11.7 L Hct 34.0 L MCV 85.0 MCH 29.3 MCHC 34.4 RDW Std Deviation 43.7 RDW Coeff of [place] 14.1 Plt Count 173 MPV 11.4 Immature Gran % (Auto) 0.3 Neut % (Auto) 74.8 Lymph % (Auto) 16.1 [place] % (Auto) 7.0 Eos % (Auto) 1.5 Baso % (Auto) 0.3 Neut # (Auto) 4.89 Lymph # (Auto) 1.05 L [place] # (Auto) 0.46 Eos # (Auto) 0.10 Baso # (Auto) 0.02 Immature Gran # (Auto) 0.02 Sodium 139 Potassium 4.0 Chloride 110 H Carbon Dioxide 21 Anion Gap 8 BUN 26 H Creatinine 0.78 Est Cr Clr Drug Dosing 75.8 Est GFR ( Amer) 103.1 Est GFR (Non-Af Amer) 88.9 BUN/Creatinine Ratio 33.3 H Glucose 221 H POC Glucose 190 H Calcium 8.6 Magnesium 2.0 Total Bilirubin 0.5 AST 11 L ALT 7 Alkaline Phosphatase 68 Troponin I High Sens Total Protein 5.0 L Albumin 2.9 L Globulin 2.1 L Albumin/Globulin Ratio 1.4 Lipase Lyme Disease IgG Ab Lyme Disease IgM Ab SARS-CoV-2, RNA, NAAT 12/23/22 12/23/22 12/23/22 08:09 12:24 17:24 WBC RBC Hgb Hct MCV MCH MCHC RDW Std Deviation RDW Coeff of Natacha Plt Count MPV Immature Gran % (Auto) Neut % (Auto) Lymph % (Auto) [place] % (Auto) Eos % (Auto) Baso % (Auto) Neut # (Auto) Lymph # (Auto) [place] # (Auto) Eos # (Auto) Baso # (Auto) Immature Gran # (Auto) Sodium Potassium Chloride Carbon Dioxide Anion Gap BUN Creatinine Est Cr Clr Drug Dosing Est GFR ( Amer) Est GFR (Non-Af Amer) BUN/Creatinine Ratio Glucose POC Glucose 156 H 197 H 113 H Calcium Magnesium Total Bilirubin AST ALT Alkaline Phosphatase Troponin I High Sens Total Protein Albumin Globulin Albumin/Globulin Ratio Lipase Lyme Disease IgG Ab Lyme Disease IgM Ab SARS-CoV-2, RNA, NAAT Diagnostic Findings Chest x-ray obtained the time admission did not reveal any acute cardiopulmonary process. Does have interstitial lung disease. Calcified aortic knob. Bedside echocardiogram demonstrated preserved LV systolic function with normal wall motion. Moderate and possibly moderate to severe aortic stenosis. PG Care Time/CCT Total # of Minutes Spent Total Time Spent with Patient: Total time spent is greater than 50% in coordination of care (as documented) at patient's floor/unit and/or counseling patient: Coding Level of Care Code 57757 INT INP/OBS CARE 3/75MIN Diagnoses CHB (complete heart block) I44.2 Aortic stenosis I35.0 CAD (coronary artery disease) I25.10
--- NOTE | 2022-12-23 08:52 | Pre Anesthesia Assessment ---
Date of Service December 23, 2022 Pre Sedation Assessment Vital Signs Temp Pulse Pulse Resp BP BP Pulse Ox 12/23/22 08:30 56 L 22 119/41 L 90 12/23/22 08:00 36.5 C 12/23/22 08:00 53 L 21 126/54 L 88 L 12/23/22 07:45 0 L 22 109/35 L 89 L 12/23/22 07:43 50 L 21 139/41 L 92 12/23/22 07:40 49 L 16 116/48 L 90 12/23/22 07:34 50 L 12 106/46 L 92 12/23/22 07:09 47 L 136/60 12/23/22 06:44 45 L 99/44 L 12/23/22 06:23 39 L 17 117/40 L 12/23/22 05:14 47 L 153/74 H 12/23/22 04:45 49 L 107/47 L 12/23/22 02:48 36.3 C L 50 L 147/63 H 96 12/22/22 23:10 50 L 12/22/22 22:22 36.5 C 53 L 15 97/41 L 95 12/22/22 19:26 49 L 12/22/22 19:19 49 L 16 99 12/22/22 19:23 36.8 C 49 L 16 122/59 L 97 O2 Del Method O2 Flow Rate 12/23/22 08:30 Nasal Cannula 2 12/23/22 08:00 12/23/22 08:00 Room Air 12/23/22 07:45 Room Air 12/23/22 07:43 Room Air 12/23/22 07:40 Room Air 12/23/22 07:34 Room Air 12/23/22 07:09 12/23/22 06:44 12/23/22 06:23 12/23/22 05:14 12/23/22 04:45 12/23/22 02:48 Room Air 12/22/22 23:10 12/22/22 22:22 Room Air 12/22/22 19:26 12/22/22 19:19 Room Air 12/22/22 19:23 Room Air Cardiovascular + bradycardic Respiratory + respiratory effort normal Pre-Sedation Airway Assessment Smoking Status: Never smoker Hx Sleep Apnea: No Hx Difficult Intubation: No Short, Thick Neck: No Thyromental Distance: > or= 3.5 Finger Breadths Oral Cavity: + WNL Mallampati Class: III ASA: ASA3 Procedure Planning Contraindications for Sedation: none Current Medications Reviewed: Yes Notes The planned sedation has been discussed with the patient. Informed Consent was obtained. I have identified the patient, determined the appropriateness of sedation and have assessed the patient immediately prior to the procedure. All medicine(s) and interventions are by my order. Emergent procedure due to hemodynamic instability and symptoms
[2022-12-23] MEDS ORDERED: LIDOCAINE 1% LOCAL 20 ML VIAL ONE ×2 (08:56→10:02)
[2022-12-23] MEDS ORDERED: VANCOMYCIN HCL 1000MG/20ML VIAL ONE (08:56)
[2022-12-23] MEDS ORDERED: WATER, STERILE FOR INJ 10 ML VIAL ONE (08:56)
[2022-12-23] MEDS ORDERED: BUPIVACAINE 0.25% PF 30 ML VIAL ONE (08:56)
[2022-12-23] MEDS ORDERED: amLODIPine BESYLATE 5 MG TAB PO SCH (09:00)
[2022-12-23] MEDS ORDERED: fentaNYL citrate PF 100 MCG/2 ML VIAL ONE (09:14)
[2022-12-23] MEDS ORDERED: ceFAZolin 330 MG/ML 1 GM VIAL ONE (09:14)
[2022-12-23] MEDS ORDERED: MIDAZOLAM HCL 5 MG/ML 1 ML VIAL ONE (09:14)
--- NOTE | 2022-12-23 10:55 | Pharmacy Report ---
Pharmacy Glycemic Short Note 2 - Date of Service December 23, 2022 - Glycemic Short BSG Results (Last 24 hours): 12/22/22 12/22/22 12/23/22 19:45 22:19 05:27 Glucose 188 H 221 H POC Glucose 167 H 12/23/22 12/23/22 05:49 08:09 Glucose POC Glucose 190 H 156 H OUTPATIENT ANTIDIABETIC REGIMEN: * Levemir 8 units SQ HS * Novolog TIDM HbA1c: 8.7% (11/28/22) ASSESSMENT: * Patient is a 72 year old male admitted with complete heart block. History of CKD, kidney transplant and type 2 DM. Pharmacy consulted to assist with inpatient glycemic management. * Currently NPO for permanent pacemaker placement and continues on prednisone 5mg daily. * Continue home dose of basal, 8 units of Lantus at bedtime and Novolog ~ moderate/severe stress scale q6 while NPO. PLAN FOR INPATIENT GLYCEMIC CONTROL: * Hold outpatient oral diabetes medications * Basal insulin * Lantus 8 units SQ HS * Bolus insulin * NovoLog per scale ACHS or Q6hrs while NPO * Goal Range: Low 110 mg/dL - High 140 mg/dL * Correction Factor: 20 mg/dL/unit * Nutritional / Prandial insulin per carb ratio of 1 unit per 10 grams CHO consumed
--- NOTE | 2022-12-23 11:39 | Post Anesthesia Assessment ---
Date of Service December 23, 2022 Post Sedation Assessment Vital Signs Temp Pulse Pulse Resp BP BP Pulse Ox 12/23/22 09:10 57 L 20 94/51 L 95 12/23/22 08:51 58 L 12 115/44 L 92 12/23/22 08:48 58 L 20 83/46 L 92 12/23/22 08:46 58 L 21 96/42 L 89 L 12/23/22 08:30 56 L 22 119/41 L 90 12/23/22 08:00 36.5 C 12/23/22 08:00 53 L 21 126/54 L 88 L 12/23/22 07:45 0 L 22 109/35 L 89 L 12/23/22 07:43 50 L 21 139/41 L 92 12/23/22 07:40 49 L 16 116/48 L 90 12/23/22 07:34 50 L 12 106/46 L 92 12/23/22 07:09 47 L 136/60 12/23/22 06:44 45 L 99/44 L 12/23/22 06:23 39 L 17 117/40 L 12/23/22 05:14 47 L 153/74 H 12/23/22 04:45 49 L 107/47 L 12/23/22 02:48 36.3 C L 50 L 147/63 H 96 12/22/22 23:10 50 L 12/22/22 22:22 36.5 C 53 L 15 97/41 L 95 12/22/22 19:26 49 L 12/22/22 19:19 49 L 16 99 12/22/22 19:23 36.8 C 49 L 16 122/59 L 97 O2 Del Method O2 Flow Rate 12/23/22 09:10 Nasal Cannula 2 12/23/22 08:51 Nasal Cannula 2 12/23/22 08:48 Nasal Cannula 2 12/23/22 08:46 Nasal Cannula 2 12/23/22 08:30 Nasal Cannula 2 12/23/22 08:00 12/23/22 08:00 Room Air 12/23/22 07:45 Room Air 12/23/22 07:43 Room Air 12/23/22 07:40 Room Air 12/23/22 07:34 Room Air 12/23/22 07:09 12/23/22 06:44 12/23/22 06:23 12/23/22 05:14 12/23/22 04:45 12/23/22 02:48 Room Air 12/22/22 23:10 12/22/22 22:22 Room Air 12/22/22 19:26 12/22/22 19:19 Room Air 12/22/22 19:23 Room Air Recovery Score Activity: Moves 4 extremities Respiration: Deep Breath/Cough Circulation: +/-20% PreAnes Value Consciousness: Arouseable (by name) Oxygen Saturation: > 92% On Room Air Discharge Sedation Level of Care: Fast Track Phase II Post Sedation Plan On clinical assessment, the patient appears to have tolerated the sedation without complications. Patient is recovering as anticipated. Patient will continue to be monitored by nursing and may be discharged when sedation discharge criteria are met per below protocol. Upon Completions of procedure up to 15 minutes continue every 5 minute vital signs and the P.A.R. score; then discharge to a Phase I or Fast Track to Phase II per the following guidelines: * Discharge Patient to appropriate Phase II area if PAR is 8 or greater or return to pre- procedure baseline. The post - procedure orders will be as directed. * If PAR score is less than 8 or not return to pre-procedure baseline then pat ient will follow Phase I monitoring till PAR is reached for Phase II. The Phase I may be done in procedure room or may call to secure a Phase I area. * If naloxone or flumazenil are used for reversal, hold in Phase I for continued monitoring from when last reversal dose was given for a minimum of 60 minutes or longer pending the nurse and/or physician discretion of patient condition before discharge to Phase II. Please call the Sedation Physician to re-evaluate and complete post-note for discharge to Phase II area. Do NOT discharge from procedure sedation or Phase 1 until post- sedation evaluation note is complete by procedure /sedation MD Sedation Discharge Instructions to be given to the patient at discharge to home.
--- NOTE | 2022-12-23 11:39 | Electrophysiology Report ---
Date of Service December 23, 2022 Electrophysiology Procedure Electrophysiology Procedure Report Procedure performed: Implantation of dual-chamber permanent pacemaker with left bundle pacing lead Staff figure model: Son Ramon MD Indication: the patient is a 72-year-old gentleman with a history of peripheral vascular and cardiovascular disease who presents to the hospital with symptomatic bradycardia. This was due to high-degree AV block. There are no notable reversible causes. The patient became somewhat hemodynamically unstable and was brought to the electrophysiology suite in an urgent fashion due to symptomatic nonreversible AV node dysfunction. A dual-chamber device was selected as the patient was in sinus rhythm and wished to maintain AV synchrony. Procedure in detail: The patient was informed of the risks benefits and alternatives to the intended procedure and she wished to proceed. She was taken to the electrophysiology suite in a fasting state. A preoperative antibiotic had been administered. The patient was monitored electrocardiographically throughout today's procedure and conscious sedation was administered per protocol. The left upper pectoral area is prepped and draped in usual sterile fashion. This area was anesthetized using subcutaneous administration of a xylocaine solution. An incision was made at this site and carried down to the prepectoralis fascia using sharp dissection. Electrocautery was also employed for dissection as well as for hemostasis. A device pocket was fashioned tissues above the pectoralis muscle. Subsequent to this maneuver the left axillary vein was accessed using modified Seldinger technique. A sheath was placed over guidewire this site used facilitate passage of a pacing lead to the right ventricular apex for pacing support during placement of the inter ventricular lead. This lead was fixated into place. Adequate threshold was obtained. A sheath was placed over the remaining guidewire and used to facilitate passage of the guiding catheter for mapping of the interventricular septum. Once appropriate location was discovered the pacing lead was advanced into the interventricular septum. Adequate sensing threshold parameters were obtained prior to removal of the guiding catheter. The proximal portion of this lead was then sutured to the prepectoralis fascia using nonabsorbable suture. This lead was then attached to the permanent pacemaker. The previously placed apical lead was then removed from the ventricular apex and placed in the right atrium. Adequate sensing threshold parameters were obtained prior to active fixation of this lead to the endocardial surface. The proximal portion of this lead was then sutured to prepectoralis fascia. It was attached to the device. The device pocket was irrigated with antibiotic solution. The device was then placed inside an a ntibiotic impregnated envelope. The device and leads were then placed in the pocket and pocket was closed in 3 layers of absorbable suture. Steri-Strips and sterile dressing were applied. The device was tested noninvasively prior to conclusion the procedure. The patient tolerated procedure well there no immediate complications. Equipment used: New pulse generator: Catheter Builder [email or web address]. Model number: [id number] Serial number [id number] Right atrial lead: Catheter Builder [employer]. Model number: [id number] serial number [id number] Right ventricular lead: Catheter Builder [employer]. Model number: 3830 serial number [id number] Measured data: Right atrial lead: P-waves measured 3.2 mV. Pacing threshold was 1.7 volts at 0.5 milliseconds with a pacing impedance of 508 Ohms Right ventricular lead: no intrinsic R-wave to measure. Pacing threshold 1.1 volts at 0.5 millisecond with a pacing impedance of 760 Ohms Impression: Successful implantation of dual-chamber permanent pacemaker with left bundle pacing lead [facility] Electrophysiology codes Pacing Procedure 1: Pacin Insert/Replace Pacer A & V PG Moderate Sedation Codes Moderate Sedation Codes Procedure 1: Sedation/Anesthesia: 57864 Mod Sedation by the same physician;Init15 Min Child Age 5 & Up Procedure 2: Sedation/Anesthesia: 69225 Mod Sedation by the same physician; Ea Addit ional15 Minutes
[2022-12-23] MEDS: predniSONE 5 MG TAB PO SCH (12:31)
[2022-12-23] MEDS: ASPIRIN 81 MG ECTAB PO SCH (12:48)
[2022-12-23] MEDS: CLOPIDOGREL BISULFATE 75 MG TAB PO SCH (12:48)
[2022-12-23] MEDS: cycloSPORINE 100 MG CAP PO SCH ×2 (12:49→20:49)
[2022-12-23] MEDS: FLUDROCORTISONE ACETATE 0.1 MG TAB PO SCH (12:49)
[2022-12-23] MEDS: POTASSIUM CHLORIDE CRTAB 20 MEQ TABCR PO SCH (12:50)
[2022-12-23] MEDS: MYCOPHENOLATE MOFETIL 250 MG CAP PO SCH ×2 (12:50→20:48)
[2022-12-23] MEDS ORDERED: amLODIPine BESYLATE 5 MG TAB PO ONE (16:06)
--- NOTE | 2022-12-23 16:35 | Billing Data ---
Date of Service December 23, 2022 Coding Level of Care Code 67084 SUB INP/OBS CARE
[2022-12-23] MEDS: ceFAZolin 1000MG 1,000 MG/7.5 ML SYR IV SCH (16:55)
[2022-12-23] MEDS: METOPROLOL TARTRATE 50 MG TAB PO SCH (18:05)
[2022-12-23] MEDS: TAMSULOSIN HCL 0.4 MG CAP PO SCH (18:11)
--- NOTE | 2022-12-23 19:47 | XCELERA ---
[id number] \\[email or web address]\[id number]
[2022-12-23] MEDS: PANTOprazole 40 MG TAB PO SCH (20:48)
[2022-12-23] MEDS: ATORVASTATIN 40 MG TAB PO SCH (20:49)
[2022-12-23] MEDS: LANTUS PER UNIT CHARGE SQ SCH (20:59)
[2022-12-23] MEDS: hydrALAZINE HCL 20 MG/ML VIAL IV PRN (21:03)
[2022-12-24] MEDS: ACETAMINOPHEN 325 MG TAB PO PRN ×2 (00:02→10:37)
[2022-12-24] MEDS: ceFAZolin 1000MG 1,000 MG/7.5 ML SYR IV SCH ×2 (01:28→22:42)
[2022-12-24] MEDS: hydrALAZINE HCL 20 MG/ML VIAL IV PRN (02:05)
--- NOTE | 2022-12-24 06:20 | Electrocardiogram Report ---
Test Reason : Blood Pressure : / mmHG Vent. Rate : 049 BPM Atrial Rate : 065 BPM P-R Int : 000 ms QRS Dur : 142 ms QT Int : 500 ms P-R-T Axes : 044 -21 150 degrees QTc Int : 451 ms Sinus rhythm with complete heart block and Wide QRS rhythm Left bundle branch block Abnormal ECG When compared with ECG of 20-APR-2022 04:58, Sinus rhythm is now with complete heart block Vent. rate has decreased BY 26 BPM Wide complex escape rhythm is now present Confirmed by Thom Houston ([id number]) on 12/24/2022 6:20:03 AM Referred By: REFERRED SELF Confirmed By:Thom Houston
--- NOTE | 2022-12-24 07:04 | Critical Care Progress Note ---
Date of Service December 24, 2022 Assessment & Plan (1) CHB (complete heart block): (2) CKD (chronic kidney disease), stage III: (3) Acute respiratory failure with hypoxia: (4) S/P bilateral BKA (below knee amputation): (5) Diabetes mellitus: (6) Gastroesophageal reflux disease: (7) Hypercholesterolemia: (8) Kidney replaced by transplant: (9) Stroke: (10) Weakness: (11) Aortic stenosis: Plan Reason Critically Ill: 72-year-old male past medical history of renal transplant on prednisone, tacrolimus and fludrocortisone, hypertension, BPH admitted to the hospital for heart block. Patient went into complete heart block with hypotension. Sent to the ICU for further management Neuro - [facility] ICU: -- Delirium History of agitated delirium after sedative medications continue to monitor --History of old stroke with left-sided endarterectomy Has chronic right-sided facial droop This was confirmed by talking to the patient's on the phone at 12/23/2022, 7:52 AM Continue with neurochecks Cardiac - -- Complete heart block s/p PPM 12/23/2022 --Hypertension C/w home blood pressure medications Respiratory - -- Chronic interstitial changes of the lung Appreciated initially on the CT chest in April 2022 when the patient had COVID Latest chest x-ray shows the same No need for oxygenation right now. Continue with O2 as needed to keep O2 saturation greater than 90 GI - -- GERD Continue with pantoprazole RENAL/LYTES - -- History of renal transplant On mycophenolate, cyclosporine, prednisone 5 mg - -- BPH On tamsulosin at home ENDO - -- Chronic prednisone use with adrenal insufficiency On fludrocortisone HEME - -- Monitor H&H ID - -- Chronically immunosuppressed No clear signs of infection right now -- DNI -- Prophylaxis VTE: None GI: Pantoprazole Lines: Peripheral Diet: Cardiac Plan: In/Out -544, 1325 urine output. Patient CXR from today show no pneumothorax. There are interstitial changes appreciated bilaterally. BP is much stable. c/w blood pressure medications. Ok to be DG to tele floor. Please note the above document was generated using voice recognition software. It may contain grammatical, syntax or spelling errors.Any formal questions or concerns about the content, text or information contained within the body of this dictation should be directly addressed to the provider for clarification. Admission and Anticipated Discharge Date Admission Date: December 22, 2022 Subjective Patient seen and examined at bedside. NAD. CAMACHO overnight. Patient is still on one to one observation but he is more alert and calm today. No BAKER, No CP, no SOB. No Dizziness. Feeling much better. Asking for food. Review of Systems Review of Systems: All systems reviewed & are unremarkable except as noted in Subjective Physical Exam Physical Exam: Constitutional: No acute distress HEENT: EOMI, PERRLA, minimal right-sided facial droop (chronic as per the patient) Respiratory system: Decreased air entry bilaterally, no wheeze, no rhonchi, positive crackles bilateral lobes more on the left side CVS: S1-S2 positive, Positive 3 out of 6 systolic murmur appreciated best at the apex Abdomen: Soft, nontender, nondistended, positive bowel sounds x4 Extremities: +2 pulses bilaterally radialis/ dorsalis pedis, no cyanosis, no edema, bilateral BKA Neuro: Awake alert oriented x3, strength 5 out of 5 bilateral upper and lower extremity, cranial nerves II to XII grossly intact Psych: Normal mood and affect G/U: No Yu Skin: no rashes, warm and dry Lymphatic: no cervical or axillary lymphadenopathy Results & Data Results & Data Vital Signs (Past 12 Hours) Vital Signs Temp Pulse Resp BP Pulse Ox O2 Del Method 12/24/22 06:00 81 15 155/62 H 93 Room Air 12/24/22 05:00 82 20 136/58 L 92 Room Air 12/24/22 04:00 36.9 C 83 14 148/63 H 93 Room Air 12/24/22 03:00 78 14 124/55 L 94 Room Air 12/24/22 02:00 79 18 172/65 H 94 Room Air 12/24/22 01:00 77 16 158/56 H 93 Room Air 12/24/22 00:00 36.8 C 72 15 173/41 H 93 Room Air 12/23/22 23:00 73 12 165/62 H 93 Room Air 12/23/22 22:00 72 21 165/54 H 93 Room Air 12/23/22 21:00 63 15 168/56 H 93 Room Air 12/23/22 20:00 36.8 C 67 14 163/54 H 93 Room Air 12/23/22 20:00 Room Air Laboratory Results 12/24/22 06:16 12/24/22 06:16 Coding Level of Care Code 33324 SUB INP/OBS CARE 3/50MIN Diagnoses CHB (complete heart block) I44.2 CKD (chronic kidney disease), stage III N18.30 Acute respiratory failure with hypoxia J96.01 S/P bilateral BKA (below knee amputation) Z89.512; Z89.511 Diabetes mellitus E11.9 Gastroesophageal reflux disease K21.9 Hypercholesterolemia E78.00 Kidney replaced by transplant Z94.0 Stroke I63.9 Weakness R53.1 Aortic stenosis I35.0
[2022-12-24 07:18] LABS: Basophils # (auto) 0.03 K/uL (0-0.2); Basophils % (auto) 0.4 %; Eosinophils # (auto) 0.12 K/uL (0-0.50); Eosinophils % (auto) 1.7 %; Hematocrit (blood only) 35.2 % (42.0-52.0); Hemoglobin 11.9 g/dl (14.0-18.0); Immature Granulocytes # (auto) 0.03 K/uL (0.01-0.20); Immature Granulocytes % (auto) 0.4 %; Lymphocytes # (auto) 0.84 K/uL (1.2-3.4); Lymphocytes % (auto) 11.7 %; Mean Corpuscular Hemoglobin 29.3 pg (25.0-34.0); Mean Corpuscular Hgb Conc 33.8 g/dL (32.0-36.0); Mean Corpuscular Volume 86.7 fL (80.0-100.0); Mean Platelet Volume 11.5 fL (9.4-12.4); Monocytes % (auto) 8.4 %; Neutrophils # (auto) 5.54 K/uL (1.40-6.50); Neutrophils % (auto) 77.4 %; Platelet Count 179 K/uL (130-400); RDW Coefficient of Variation 14.3 % (11.5-14.5); RDW Standard Deviation 45.2 fL (36.4-46.3); Red Blood Count 4.06 M/uL (4.70-6.10); White Blood Count 7.16 K/ul (4.8-10.8)
[2022-12-24 07:21] LABS: Calcium 8.8 mg/dl (8.6-10.3); Creatinine Clr Calc Pharmacy 83.8 ml/min; Est GFR (African American) 105.9 ml/min; Est GFR (Non-African American) 91.4 ml/min; Magnesium 1.6 mg/dl (1.7-2.4); Phosphorus 3.2 mg/dl (2.5-4.9); Potassium 3.9 mmol/L (3.5-5.1)
[2022-12-24] MEDS: DOPamine / D5W 400 MG/250 ML BAG IV SCH (07:44)
[2022-12-24] MEDS: amLODIPine BESYLATE 5 MG TAB PO SCH (08:34)
[2022-12-24] MEDS: CLOPIDOGREL BISULFATE 75 MG TAB PO SCH (08:35)
[2022-12-24] MEDS: ASPIRIN 81 MG ECTAB PO SCH (08:35)
[2022-12-24] MEDS: cycloSPORINE 100 MG CAP PO SCH ×2 (08:35→19:58)
[2022-12-24] MEDS: FLUDROCORTISONE ACETATE 0.1 MG TAB PO SCH (08:37)
[2022-12-24] MEDS: predniSONE 5 MG TAB PO SCH (08:38)
[2022-12-24] MEDS: POTASSIUM CHLORIDE CRTAB 20 MEQ TABCR PO SCH (08:38)
[2022-12-24] MEDS: MYCOPHENOLATE MOFETIL 250 MG CAP PO SCH ×2 (08:38→19:58)
[2022-12-24] MEDS: METOPROLOL TARTRATE 50 MG TAB PO SCH ×2 (08:38→19:58)
--- NOTE | 2022-12-24 08:47 | XRay Report ---
XR chest 2V PA/lateral CLINICAL HISTORY: EXACT TIME ORDERED Evaluate for pneumothorax and l TECHNIQUE: 2 views of the chest were obtained. Comparison: Comparison is made to chest radiograph 12/22/2022 FINDINGS: Dual lead pacemaker is seen. Calcified aortic knob is seen. Reticular interstitial opacities are seen . Bibasilar densities are unchanged from prior. No evidence of pleural effusion or pneumothorax. IMPRESSION: Redemonstration of interstitial airspace opacities. Superimposed bibasilar airspace disease cannot be entirely excluded. ACT 112: Negative or not required by law. Electronically signed by: Dex Kendall M.D. 12/24/2022 8:46 AM
[2022-12-24] MEDS: INSULIN ASPART PER UNIT CHARGE SC SCH ×4 (08:59→20:11)
[2022-12-24] MEDS ORDERED: POTASSIUM CHLORIDE CRTAB 20 MEQ TABCR PO ONE (09:45)
[2022-12-24] MEDS: MAGNESIUM SULFATE / D5W 1 GM/100 ML BAG IV SCH ×3 (10:37→14:28)
--- NOTE | 2022-12-24 11:51 | XCELERA ---
[id number]\[id number]
--- NOTE | 2022-12-24 13:01 | Pre Anesthesia Assessment ---
Date of Service December 24, 2022 Pre Sedation Assessment Vital Signs Temp Pulse Pulse Resp BP BP Pulse Ox 12/24/22 11:01 98 H 18 12/24/22 11:01 128/73 12/24/22 11:00 24 12/24/22 10:01 90 21 12/24/22 10:01 147/71 H 12/24/22 10:00 85 19 12/24/22 09:00 89 19 12/24/22 08:01 106/62 12/24/22 08:01 83 16 12/24/22 08:00 80 24 12/24/22 07:26 112/75 12/24/22 07:26 70 17 12/24/22 07:00 71 14 93 12/24/22 11:16 12/24/22 11:16 36.5 C 12/24/22 08:17 37.4 C 12/24/22 06:00 81 15 155/62 H 93 12/24/22 05:00 82 20 136/58 L 92 12/24/22 04:00 36.9 C 83 14 148/63 H 93 12/24/22 03:00 78 14 124/55 L 94 12/24/22 02:00 79 18 172/65 H 94 12/24/22 01:00 77 16 158/56 H 93 12/24/22 00:00 36.8 C 72 15 173/41 H 93 12/23/22 23:00 73 12 165/62 H 93 12/23/22 22:00 72 21 165/54 H 93 12/23/22 21:00 63 15 168/56 H 93 12/23/22 20:00 36.8 C 67 14 163/54 H 93 12/23/22 19:00 70 16 146/55 H 94 12/23/22 20:00 12/23/22 18:37 78 14 119/54 L 92 12/23/22 18:00 80 16 191/69 H 94 12/23/22 17:00 78 18 163/52 H 95 12/23/22 16:00 77 16 178/68 H 95 12/23/22 15:30 36.5 C 78 15 174/49 H 98 12/23/22 15:00 77 13 123/96 96 12/23/22 14:30 80 12 111/81 98 12/23/22 14:00 80 17 132/79 100 12/23/22 13:30 80 12 144/82 H 99 12/23/22 13:03 78 14 136/83 97 O2 Del Method O2 Flow Rate 12/24/22 11:01 12/24/22 11:01 12/24/22 11:00 12/24/22 10:01 12/24/22 10:01 12/24/22 10:00 12/24/22 09:00 12/24/22 08:01 12/24/22 08:01 12/24/22 08:00 12/24/22 07:26 12/24/22 07:26 12/24/22 07:00 12/24/22 11:16 Room Air 12/24/22 11:16 12/24/22 08:17 12/24/22 06:00 Room Air 12/24/22 05:00 Room Air 12/24/22 04:00 Room Air 12/24/22 03:00 Room Air 12/24/22 02:00 Room Air 12/24/22 01:00 Room Air 12/24/22 00:00 Room Air 12/23/22 23:00 Room Air 12/23/22 22:00 Room Air 12/23/22 21:00 Room Air 12/23/22 20:00 Room Air 12/23/22 19:00 Room Air 12/23/22 20:00 Room Air 12/23/22 18:37 Room Air 12/23/22 18:00 Room Air 12/23/22 17:00 Room Air 12/23/22 16:00 Nasal Cannula 2 12/23/22 15:30 Nasal Cannula 2 12/23/22 15:00 Nasal Cannula 2 12/23/22 14:30 Nasal Cannula 3 12/23/22 14:00 Nasal Cannula 3 12/23/22 13:30 Nasal Cannula 3 12/23/22 13:03 Nasal Cannula 3 Cardiovascular + regular rate and + regular rhythm Respiratory + respiratory effort normal Pre-Sedation Airway Assessment Smoking Status: Never smoker Hx Sleep Apnea: No Hx Difficult Intubation: No Short, Thick Neck: No Thyromental Distance: > or= 3.5 Finger Breadths Oral Cavity: + WNL Mallampati Class: II ASA: ASA3 NPO Status Date of Last Intake of Fluids: 12/22/22 Date of Last Intake of Solid Food: 12/22/22 Procedure Planning Contraindications for Sedation: none Current Medications Reviewed: Yes Notes The planned sedation has been discussed with the patient. Informed Consent was obtained. I have identified the patient, determined the appropriateness of sedation and have assessed the patient immediately prior to the procedure. All medicine(s) and interventions are by my order. still confused at times. No focal deficits.
--- NOTE | 2022-12-24 14:19 | Hospitalist Progress Note ---
Date of Service December 24, 2022 Assessment & Plan (1) Complete heart block: Plan: 72yo male PMHx of diabetes, CKD, kidney transplant, aortic stenosis, carotic stenosis, AL s/p stent, bilateral BKA amputation, HTN, HLD, BPH, GERD, and CVA presents with weakness. #Complete Heart Block - Unfortunately, echocardiogram review showed misplacement of left atrial lead and will need to go to the OR to have this adjusted by Dr. Ramon -S/p permanent pacemaker placed on 12/23/22, revision performed on 12/24/22 -Management per electrophysiology, appreciate recs -Downgrage from ICU to PCU today -NPO til after procedure -If stable after surgery, may be d/c tomorrow -goal K>4, Mag >2 #HTN #Adrenal insufficiency? -cont amlodipine, fludrocortisone -hold metoprolol #CAD #h/o AL s/p stent #h/o carotid stenosis s/p TCAR -cont. statin, ASA, plavix -hold metoprolol #h/o CKD #s/p renal transplant -cont. prednisone, cyclosporine, mycophenolate #GERD -cont. esomeprazole #DM2 #h/o bilateral BLK 2/2 diabetic complications -h/o hypoglycemic episodes on previous admission per family -discussed with pharmacy; glycemic consult placed, ICU glycemic protocol #BPH -cont. flomax DVT ppx: on home ASA and plavix; pt has bilateral BLK amputation, consider chemoprophylaxis s/p procedure FEN/GI: NPO at the time of writing this note, Heart Healthy, DM2 after procedure Code Status: DNI only Dispo: PCU (2) CKD (chronic kidney disease), stage III: (3) Aortic stenosis: (4) Carotid stenosis: (5) Benign hypertension: (6) Diabetes mellitus: (7) Enlarged prostate without lower urinary tract symptoms (luts): (8) Gastroesophageal reflux disease: (9) Hypercholesterolemia: (10) Kidney replaced by transplant: (11) Stroke: Admission and Anticipated Discharge Date Admission Date: December 22, 2022 Supervising Physician Co-Signing Physician Notes I personally examined the patient and verified all berger points of history and exam, discussed case, and agree with decision making with Dr Acuña. Very confused, thinks he is sleeping in an ambulance. Was more agitated earlier, but nursing has been able to calm him down with redirection and a calming presence. Vitals noted, in general he is awake and alert pleasant but confused. No distress. Breathing unlabored no accessory muscle use good effort. Skin shows no rashes no pallor or icterus. Neuro without focal deficits. Complete heart blockstatus post pacer lead revision. Per cardiology. Delirium/metabolic encephalopathyrecurred again, briefly agitated to the point of concern about self-harmbut this seems to be improving. Family apparently has noted he has needed Haldol before, hopefully we can hold off on parenteral antipsychotics, but if he is at risk to himself or others certainly we can go in that direction. Subjective Patient seen at bedside this morning. No acute events reported overnight. Carmela wills only oriented to self this morning and seems somewhat agitated albeit per ICU provider this is better than yesterday after his anesthesia. Overall restless and wants to sit up but is unable to do so per cardiology instruction. No real meaningful HPI at this time. Does not seem to be in any pain except for when people touch his pacer site. Review of Systems Review of Systems: All systems reviewed & are unremarkable except as noted in HPI & below Physical Exam Constitutional: well developed and well nourished Eyes: + anicteric sclerae and PERRL Neck: normal visual inspection Respiratory: normal respiratory effort Auscultation: + crackles Cardiovascular: Rate/Rhythm: regular rhythm and + bradycardic Heart Sounds: + murmur Gastrointestinal (Abdomen): Inspection/Auscultation: abdomen normal to inspection Musculoskeletal: Extremities: + amputation noted (b/l BKA) Skin: no rashes, warm and dry Neurologic: awake Results & Data Results & Data Vital Signs (Past 12 Hours) Vital Signs Temp Pulse Resp BP Pulse Ox O2 Del Method 12/24/22 11:01 98 H 18 12/24/22 11:01 128/73 12/24/22 11:00 24 12/24/22 10:01 90 21 12/24/22 10:01 147/71 H 12/24/22 10:00 85 19 12/24/22 09:00 89 19 12/24/22 08:01 106/62 12/24/22 08:01 83 16 12/24/22 08:00 80 24 12/24/22 07:26 112/75 12/24/22 07:26 70 17 12/24/22 07:00 71 14 93 12/24/22 11:16 Room Air 12/24/22 11:16 36.5 C 12/24/22 08:17 37.4 C 12/24/22 06:00 81 15 155/62 H 93 Room Air 12/24/22 05:00 82 20 136/58 L 92 Room Air 12/24/22 04:00 36.9 C 83 14 148/63 H 93 Room Air 12/24/22 03:00 78 14 124/55 L 94 Room Air
[2022-12-24] MEDS ORDERED: WATER, STERILE FOR INJ 10 ML VIAL ONE (14:24)
[2022-12-24] MEDS ORDERED: VANCOMYCIN HCL 1000MG/20ML VIAL ONE (14:25)
[2022-12-24] MEDS ORDERED: BUPIVACAINE 0.25% PF 30 ML VIAL ONE (14:25)
[2022-12-24] MEDS ORDERED: ceFAZolin 330 MG/ML 1 GM VIAL ONE (15:11)
--- NOTE | 2022-12-24 16:13 | Post Anesthesia Assessment ---
Date of Service December 24, 2022 Post Sedation Assessment Vital Signs Temp Pulse Pulse Resp BP BP Pulse Ox 12/24/22 14:40 60 20 165/73 H 95 12/24/22 11:01 98 H 18 12/24/22 11:01 128/73 12/24/22 11:00 24 12/24/22 10:01 90 21 12/24/22 10:01 147/71 H 12/24/22 10:00 85 19 12/24/22 09:00 89 19 12/24/22 08:01 106/62 12/24/22 08:01 83 16 12/24/22 08:00 80 24 12/24/22 07:26 112/75 12/24/22 07:26 70 17 12/24/22 07:00 71 14 93 12/24/22 11:16 12/24/22 11:16 36.5 C 12/24/22 08:17 37.4 C 12/24/22 06:00 81 15 155/62 H 93 12/24/22 05:00 82 20 136/58 L 92 12/24/22 04:00 36.9 C 83 14 148/63 H 93 12/24/22 03:00 78 14 124/55 L 94 12/24/22 02:00 79 18 172/65 H 94 12/24/22 01:00 77 16 158/56 H 93 12/24/22 00:00 36.8 C 72 15 173/41 H 93 12/23/22 23:00 73 12 165/62 H 93 12/23/22 22:00 72 21 165/54 H 93 12/23/22 21:00 63 15 168/56 H 93 12/23/22 20:00 36.8 C 67 14 163/54 H 93 12/23/22 19:00 70 16 146/55 H 94 12/23/22 20:00 12/23/22 18:37 78 14 119/54 L 92 12/23/22 18:00 80 16 191/69 H 94 12/23/22 17:00 78 18 163/52 H 95 O2 Del Method 12/24/22 14:40 Room Air 12/24/22 11:01 12/24/22 11:01 12/24/22 11:00 12/24/22 10:01 12/24/22 10:01 12/24/22 10:00 12/24/22 09:00 12/24/22 08:01 12/24/22 08:01 12/24/22 08:00 12/24/22 07:26 12/24/22 07:26 12/24/22 07:00 12/24/22 11:16 Room Air 12/24/22 11:16 12/24/22 08:17 12/24/22 06:00 Room Air 12/24/22 05:00 Room Air 12/24/22 04:00 Room Air 12/24/22 03:00 Room Air 12/24/22 02:00 Room Air 12/24/22 01:00 Room Air 12/24/22 00:00 Room Air 12/23/22 23:00 Room Air 12/23/22 22:00 Room Air 12/23/22 21:00 Room Air 12/23/22 20:00 Room Air 12/23/22 19:00 Room Air 12/23/22 20:00 Room Air 12/23/22 18:37 Room Air 12/23/22 18:00 Room Air 12/23/22 17:00 Room Air Recovery Score Activity: Moves 4 extremities Respiration: Deep Breath/Cough Circulation: +/-20% PreAnes Value Consciousness: Fully Awake Oxygen Saturation: > 92% On Room Air Post Anesthesia Score: 10 Discharge Sedation Level of Care: Fast Track Phase II Post Sedation Plan On clinical assessment, the patient appears to have tolerated the sedation without complications. Patient is recovering as anticipated. Patient will continue to be monitored by nursing and may be discharged when sedation discharge criteria are met per below protocol. Upon Completions of procedure up to 15 minutes continue every 5 minute vital signs and the P.A.R. score; then discharge to a Phase I or Fast Track to Phase II per the following guidelines: * Discharge Patient to appropriate Phase II area if PAR is 8 or greater or return to pre- procedure baseline. The post - procedure orders will be as directed. * If PAR score is less than 8 or not return to pre-procedure baseline then patient will follow Phase I monitoring till PAR is reached for Phase II. The Phase I may be done in procedure room or may call to secure a Phase I area. * If naloxone or flumazenil are used for reversal, hold in Phase I for continued monitoring from when last reversal dose was given for a minimum of 60 minutes or longer pending the nurse and/or physician discretion of patient condition before discharge to Phase II. Please call the Sedation Physician to re-evaluate and complete post-note for discharge to Phase II area. Do NOT discharge from procedure sedation or Phase 1 until post- sedation evaluation note is complete by procedure /sedation MD Sedation Discharge Instructions to be given to the patient at discharge to home.
--- NOTE | 2022-12-24 16:18 | Electrophysiology Report ---
Date of Service December 24, 2022 Electrophysiology Procedure Electrophysiology Procedure Report Procedure performed: Right atrial lead revision staff senior it assistant: Son Ramon MD indication: The patient is a 72-year-old gentleman who underwent implantation of dual-chamber permanent pacemaker for complete heart block yesterday. He was noted on routine evaluation this morning to have a poorly functioning right atrial lead which will require revision. Procedure detail: Patient and his spouse were informed of the risks benefits and alternatives to the intended procedure. They understood which proceed. Consent was obtained from the as the patient has been confused. The patient was brought to the electrophysiology suite in a fasting state. A preoperative antibiotic had been administered. The patient was monitored electrocardiographically throughout today's procedure. The area over the previously implanted pulse generator was prepped and draped in usual sterile fashion. This area was anesthetized using subcutaneous menstruation of lidocaine and Marcaine solution. The previously made incision was subsequently opened and the sutures removed. The lead and device were then removed from the pocket. The atrial lead was removed from the pulse generator. The sutures around the suturing were cut the stylet was advanced into the lead and the helix retracted. The lead was subsequently moved to a different position in the right atrium under fluoroscopic guidance. Adequate sensing threshold parameters were obtained prior to active fixation of this lead to the endocardial surface. Proximal portion of lead was then sutured to the prepectoralis fascia using nonabsorbable suture. A device pocket was irrigated with an antibiotic solution. The leads and device were then placed inside an antibiotic impregnated envelope. Leads and device were then placed back in the pocket the pocket was closed in 3 layers of absorbable suture. Steri-Strips and sterile dressing as well as a pressure dressing were applied. Device was tested noninvasively prior conclusion of the procedure. Patient tolerated procedure well. There were no immediate complications. Equipment used: retained pulse generator: [employer] model number W1DR01 serial number [id number] Retained right atrial lead: [employer] Medtronic model 5076 serial number [id number] retained right ventricular lead: [employer] Med[employer]onic model 3830 serial numbe r [id number] V measured data right atrial lead: P-waves measured 2.5 mV. Pacing threshold was 0.5 volts at 0.4 milliseconds with a pacing impedance of 390 Ohms Right ventricular lead: no intrinsic R-waves were measured. Pacing threshold was 0.5 volts at 0.46 milliseconds with a pacing impedance of 589 Ohms in the bipolar configuration impression: Successful right atrial lead revision for dual-chamber permanent pacemaker with left bundle pacing lead. [facility] Electrophysiology codes Pacing Procedure 1: Pacin Reposition Pacer/ICD electrode
--- NOTE | 2022-12-24 18:54 | Billing Data ---
Date of Service December 24, 2022 Coding Level of Care Code 23123 SUB INP/OBS CARE
[2022-12-24] MEDS: ATORVASTATIN 40 MG TAB PO SCH (19:58)
[2022-12-24] MEDS: TAMSULOSIN HCL 0.4 MG CAP PO SCH (19:59)
[2022-12-24] MEDS: PANTOprazole 40 MG TAB PO SCH (19:59)
[2022-12-24] MEDS: OLANZapine 10 MG/2.1 ML SDV IM PRN ×2 (20:00→21:43)
[2022-12-24] MEDS: LANTUS PER UNIT CHARGE SQ SCH (20:12)
--- NOTE | 2022-12-25 05:10 | Electrocardiogram Report ---
Test Reason : Blood Pressure : / mmHG Vent. Rate : 085 BPM Atrial Rate : 085 BPM P-R Int : 148 ms QRS Dur : 124 ms QT Int : 432 ms P-R-T Axes : 030 -43 -19 degrees QTc Int : 514 ms Poor data quality, interpretation may be adversely affected Atrial-sensed ventricular-paced rhythm Sinus rhythm Possible Left atrial enlargement Left axis deviation Abnormal ECG When compared with ECG of 22-DEC-2022 19:23, Ventricular pacing is now present Vent. rate has increased BY 36 BPM Confirmed by Thom Houston ([id number]) on 12/25/2022 5:10:14 AM Referred By: REFERRED SELF Confirmed By:Thom Houston
--- NOTE | 2022-12-25 05:52 | Billing Data ---
Date of Service December 25, 2022 Coding Level of Care Code 35345 INT INP/OBS CARE
[2022-12-25] MEDS: ceFAZolin 1000MG 1,000 MG/7.5 ML SYR IV SCH (06:00)
[2022-12-25 08:35] LABS: Hematocrit (blood only) 34.7 % (42.0-52.0); Hemoglobin 11.7 g/dl (14.0-18.0); Mean Corpuscular Hemoglobin 28.7 pg (25.0-34.0); Mean Corpuscular Hgb Conc 33.7 g/dL (32.0-36.0); Mean Platelet Volume 11.4 fL (9.4-12.4); Platelet Count 179 K/uL (130-400); RDW Coefficient of Variation 14.5 % (11.5-14.5); RDW Standard Deviation 44.8 fL (36.4-46.3); Red Blood Count 4.08 M/uL (4.70-6.10); White Blood Count 8.05 K/ul (4.8-10.8)
[2022-12-25] MEDS: INSULIN ASPART PER UNIT CHARGE SC SCH ×4 (08:35→21:23)
[2022-12-25 08:46] LABS: BUN Creatinine Ratio 19.5 (10-20); Calcium 9.5 mg/dl (8.6-10.3); Creatinine Clr Calc Pharmacy 81.2 ml/min; Est GFR (African American) 103.6 ml/min; Est GFR (Non-African American) 89.4 ml/min; Magnesium 1.8 mg/dl (1.7-2.4); Potassium 3.8 mmol/L (3.5-5.1)
[2022-12-25] MEDS: CLOPIDOGREL BISULFATE 75 MG TAB PO SCH (09:57)
[2022-12-25] MEDS: ASPIRIN 81 MG ECTAB PO SCH (09:57)
[2022-12-25] MEDS: amLODIPine BESYLATE 5 MG TAB PO SCH (09:57)
[2022-12-25] MEDS: METOPROLOL TARTRATE 50 MG TAB PO SCH ×2 (09:58→21:04)
[2022-12-25] MEDS: FLUDROCORTISONE ACETATE 0.1 MG TAB PO SCH (09:58)
[2022-12-25] MEDS: predniSONE 5 MG TAB PO SCH (09:58)
[2022-12-25] MEDS: POTASSIUM CHLORIDE CRTAB 20 MEQ TABCR PO SCH (09:58)
[2022-12-25] MEDS: MYCOPHENOLATE MOFETIL 250 MG CAP PO SCH ×2 (09:58→21:04)
[2022-12-25] MEDS: cycloSPORINE 100 MG CAP PO SCH ×2 (09:58→21:05)
[2022-12-25] MEDS: LACTATED RINGER'S 1,000 ML IV SCH ×2 (10:28→19:21)
--- NOTE | 2022-12-25 11:45 | Pharmacy Report ---
Pharmacy Glycemic Short Note 2 - Date of Service December 25, 2022 - Glycemic Short BSG Results (Last 24 hours): 12/24/22 12/24/22 12/25/22 16:14 19:58 07:55 Glucose 65 L POC Glucose 169 H 213 H 12/25/22 12/25/22 12/25/22 08:26 08:27 08:49 Glucose POC Glucose 62 L* 62 L* 119 H 12/25/22 10:10 Glucose POC Glucose 88 OUTPATIENT ANTIDIABETIC REGIMEN: * Levemir 8 units SQ HS * Novolog TIDM HbA1c: 8.7% (11/28/22) ASSESSMENT: 12/25: * BSGs largely within goal range yesterday - [phone]/dL. Did have a hypoglycemic event this AM. Received 8 units of basal and 11 units of bolus insulin yesterday. * Diet ordered, but decreased PO. Continues on prednisone. * Will hold basal insulin today given decreased PO. Novolog correctional loosened in light of this as well. 12/23: * Patient is a 72 year old male admitted with complete heart block. History of CKD, kidney transplant and type 2 DM. Pharmacy consulted to assist with inpatient glycemic management. * Currently NPO for permanent pacemaker placement and continues on prednisone 5mg daily. * Continue home dose of basal, 8 units of Lantus at bedtime and Novolog ~ moderate/severe stress scale q6 while NPO. PLAN FOR INPATIENT GLYCEMIC CONTROL: * Hold outpatient oral diabetes medications * Basal insulin * - * Bolus insulin * NovoLog per scale ACHS or Q6hrs while NPO * Goal Range: Low 110 mg/dL - High 140 mg/dL * Correction Factor: 25 mg/dL/unit * Nutritional / Prandial insulin per carb ratio of 1 unit per 10 grams CHO consumed
--- NOTE | 2022-12-25 16:47 | Cardiology Progress Note ---
Date of Service December 25, 2022 Assessment & Plan (1) CHB (complete heart block): (2) Aortic stenosis: (3) CAD (coronary artery disease): Plan 1. Symptomatic bradycardia: patient underwent successful implantation of dual-chamber permanent pacemaker. However, he did require a right atrial lead revision yesterday. Lead position and function currently normal. Think we will keep the pressure dressing on overnight is this is not seem to bother him very much. This can be removed in the morning. From a purely device standpoint the patient would be stable for discharge. Standard recommendations would involve not lifting the left arm above the shoulder behind the neck for 6 weeks. Should also keep the wound clean and dry for period of 1 week. 2. Aortic stenosis: Moderate on most recent echocardiogram. 3. Coronary artery disease: He has known severe coronary disease in 1 prior intervention to the circumflex quite remotely. He is on aggressive risk factor modification. However, given his sedentary state he is not overtly symptomatic overall LV function appears to be preserved. Main concern continues to be the patient's declining cognitive status. No sedation was used during yesterday's lead revision in order to facilitate some improvement in his agitation and delirium. Admission and Anticipated Discharge Date Admission Date: December 22, 2022 Subjective this afternoon the patient continued to be confused. He was not able to verbalize any specific complaints. Review of Systems Review of Systems: Unobtainable due to cognitive status Physical Exam Physical Exam: The patient was clearly confused. He had difficulty following commands. Difficulty verbalizing. Agitated Evaluation of the device implant site reveals some ecchymosis but no evidence of significant hematoma. Pressure dressing in place. Results & Data Vital Signs (Past 12 Hours) Vital Signs Pulse Resp BP 12/25/22 15:04 95 H 12/25/22 11:38 165/76 H 12/25/22 11:38 94 H 0 L 12/25/22 10:00 94 H 24 12/25/22 12:09 96 H 12/25/22 09:00 96 H 19 12/25/22 08:21 94 H 6 L 12/25/22 08:21 139/60 12/25/22 08:00 96 H 16 12/25/22 07:00 95 H 22 Laboratory Results Abnormal Lab Results 12/24/22 12/25/22 12/25/22 19:58 07:55 07:55 WBC 8.05 RBC 4.08 L Hgb 11.7 L Hct 34.7 L MCV 85.0 MCH 28.7 MCHC 33.7 RDW Std Deviation 44.8 RDW Coeff of Natacha 14.5 Plt Count 179 MPV 11.4 Sodium 144 Potassium 3.8 Chloride 112 H Carbon Dioxide 22 Anion Gap 10 BUN 15 Creatinine 0.77 Est Cr Clr Drug Dosing 81.2 Est GFR ( Amer) 103.6 Est GFR (Non-Af Amer) 89.4 BUN/Creatinine Ratio 19.5 Glucose 65 L POC Glucose 213 H Calcium 9.5 Magnesium 1.8 12/25/22 12/25/22 12/25/22 08:26 08:27 08:49 WBC RBC Hgb Hct MCV MCH MCHC RDW Std Deviation RDW Coeff of Natacha Plt Count MPV Sodium Potassium Chloride Carbon Dioxide Anion Gap BUN Creatinine Est Cr Clr Drug Dosing Est GFR ( Amer) Est GFR (Non-Af Amer) BUN/Creatinine Ratio Glucose POC Glucose 62 L* 62 L* 119 H Calcium Magnesium 12/25/22 12/25/22 10:10 15:17 WBC RBC Hgb Hct MCV MCH MCHC RDW Std Deviation RDW Coeff of Natacha Plt Count MPV Sodium Potassium Chloride Carbon Dioxide Anion Gap BUN Creatinine Est Cr Clr Drug Dosing Est GFR ( Amer) Est GFR (Non-Af Amer) BUN/Creatinine Ratio Glucose POC Glucose 88 100 H Calcium Magnesium Diagnostic Findings Device interrogation performed today reveals adequate sensing threshold parameters on both atrial and ventricular leads. Normal device function chest x-ray demonstrates stable lead position without evidence pneumothorax
[2022-12-25] MEDS ORDERED: METOPROLOL TARTRATE 1 MG/ML VIAL IV PRN (16:50)
[2022-12-25] MEDS ORDERED: METOPROLOL TARTRATE 1 MG/ML VIAL IV ONE (16:53)
[2022-12-25] MEDS ORDERED: OLANZapine 10 MG/2.1 ML SDV IM STA (17:01)
--- NOTE | 2022-12-25 17:34 | XRay Report ---
XR chest 2V PA/lateral CLINICAL HISTORY: Pacemaker insertion. COMPARISON STUDY: Chest radiograph December 24, 2022. Chest CT April 18, 2022. FINDINGS: There is no pneumothorax following placement of a dual-lead left subclavian pacer. Cardiome diastinal silhouette is stable. Lower lung predominant interstitial thickening with bibasilar opaciti es persist. IMPRESSION: 1. No pneumothorax following placement of a dual-lead left subclavian pacemaker. 2. Persistent interstitial thickening consistent with interstitial lung disease and nonspecific bibas ilar opacities. ACT 112: Negative or not required by law. Electronically signed by: Ovi Tomas M.D. 12/25/2022 5:33 PM
--- NOTE | 2022-12-25 18:08 | Hospitalist Progress Note ---
Date of Service December 25, 2022 Assessment & Plan (1) Complete heart block: Plan: 72yo male PMHx of diabetes, CKD, kidney transplant, aortic stenosis, carotic stenosis, [place] s/p stent, bilateral BKA amputation, HTN, HLD, BPH, GERD, and CVA presents with weakness. #Complete Heart Block - Unfortunately, echocardiogram review showed misplacement of left atrial lead and will need to go to the OR to have this adjusted by Dr. Ramon -S/p permanent pacemaker placed on 12/23/22, revision performed on 12/24/22 -Management per electrophysiology, appreciate recs -Heart Healthy, DM2 Diet -Pt has delirium s/p pacemaker placement due to anesthesiology which pt has had this response in the past. -Continue to reorient as able and try to avoid antipsychotics if able as this may prolong delirium in the long run -Once delirium improves, pt could potentially go home. -goal K>4, Mag >2 #HTN #Adrenal insufficiency? -cont amlodipine, fludrocortisone -hold metoprolol #CAD #h/o [place] s/p stent #h/o carotid stenosis s/p TCAR -cont. statin, ASA, plavix -hold metoprolol #h/o CKD #s/p renal transplant -cont. prednisone, cyclosporine, mycophenolate #GERD -cont. esomeprazole #DM2 #h/o bilateral BLK 2/2 diabetic complications -h/o hypoglycemic episodes on previous admission per family -discussed with pharmacy; glycemic consult placed, ICU glycemic protocol #BPH -cont. flomax DVT ppx: on home ASA and plavix; pt has bilateral BLK amputation, consider chemoprophylaxis s/p procedure FEN/GI: NPO at the time of writing this note, Heart Healthy, DM2 after procedure Code Status: DNI only Dispo: PCU (2) CKD (chronic kidney disease), stage III: (3) Aortic stenosis: (4) Carotid stenosis: (5) Benign hypertension: (6) Diabetes mellitus: (7) Enlarged prostate without lower urinary tract symptoms (luts): (8) Gastroesophageal reflux disease: (9) Hypercholesterolemia: (10) Kidney replaced by transplant: (11) Stroke: Admission and Anticipated Discharge Date Admission Date: December 22, 2022 Supervising Physician Co-Signing Physician Notes I personally examined the patient and verified all berger points of history and ex am, discussed case, and agree with decision making with Dr Acuña. Very confused, has had some risk to self and others. Vitals noted, in general he is awake but confused. No distress at the time I see him. Breathing unlabored no accessory muscle use good effort. Skin shows no rashes no pallor or icterus. Neuro without focal deficits. Complete heart blockstatus post pacer lead revision. Per cardiology. Appreciate cardiology input. Delirium/metabolic encephalopathyPer familyseems to happen anytime he has a procedure. Yesterday I discussed that the common course of delirium is would be that even after the anesthetic wears off, the hospital environment, as well as the nature of the delirium itself often last much longer. Family noted that his always abruptly resolvedwhich gave hope that it may be short-lived, but unfortunately this does not appear to be the case. In terms of metabolic factors, he appears well-hydratedobviously continue to follow closely and follow electrolytes with basic metabolic panel daily until he is doing better; septic/infectiousnothing appears to be going on in this facet, i.e. no infections appear to be at play provoking his delirium; cathryn did have light anesthesia for initial pacemaker placement, none since, unfortunately with his risk to self and others he has needed a few doses of antipsychotic to protect himself from harm which can also be a bit deliriogenic, but no other overtly deliriogenic meds; environmentcertainly being in the hospitalparticularly being in the ICU can be very deliriogenic. Continue to follow closely. [place] ssurance/reorientation as possible. Subjective Patient seen at bedside this morning. Unfortunately patient needed to be given 2 doses of Zyprexa last night due to agitation and violence. This morning he is quite lethargic and is unable to offer any new or meaningful HPI at this time. Review of Systems Review of Systems: Per HPI Physical Exam Constitutional: well developed and well nourished Eyes: + anicteric sclerae and PERRL Neck: normal visual inspection Respiratory: normal respiratory effort Auscultation: + crackles Cardiovascular: Rate/Rhythm: regular rhythm and + bradycardic Heart Sounds: + murmur Gastrointestinal (Abdomen): Inspection/Auscultation: abdomen normal to inspection Musculoskeletal: Extremities: + amputation noted (b/l BKA) Skin: no rashes, warm and dry Neurologic: awake and + confused Results & Data Results & Data Vital Signs (Past 12 Hours) Vital Signs Pulse Resp BP 12/25/22 17:00 117 H 183/118 H 12/25/22 15:04 95 H 12/25/22 11:38 165/76 H 12/25/22 11:38 94 H 0 L 12/25/22 10:00 94 H 24 12/25/22 12:09 96 H 12/25/22 09:00 96 H 19 12/25/22 08:21 94 H 6 L 12/25/22 08:21 139/60 12/25/22 08:00 96 H 16 12/25/22 07:00 95 H 22
--- NOTE | 2022-12-25 18:46 | Billing Data ---
Date of Service December 25, 2022 Coding Level of Care Code 88453 SUB INP/OBS CARE
[2022-12-25] MEDS: TAMSULOSIN HCL 0.4 MG CAP PO SCH (21:04)
[2022-12-25] MEDS: ATORVASTATIN 40 MG TAB PO SCH (21:05)
[2022-12-25] MEDS: PANTOprazole 40 MG TAB PO SCH (21:05)
[2022-12-26 08:16] LABS: Basophils # (auto) 0.02 K/uL (0-0.2); Basophils % (auto) 0.3 %; Eosinophils # (auto) 0.05 K/uL (0-0.50); Eosinophils % (auto) 0.7 %; Hematocrit (blood only) 33.8 % (42.0-52.0); Hemoglobin 11.2 g/dl (14.0-18.0); Immature Granulocytes # (auto) 0.02 K/uL (0.01-0.20); Immature Granulocytes % (auto) 0.3 %; Lymphocytes % (auto) 8.8 %; Mean Corpuscular Hemoglobin 28.9 pg (25.0-34.0); Mean Corpuscular Hgb Conc 33.1 g/dL (32.0-36.0); Mean Corpuscular Volume 87.1 fL (80.0-100.0); Mean Platelet Volume 11.2 fL (9.4-12.4); Monocytes # (auto) 0.65 K/uL (0.11-0.59); Monocytes % (auto) 9.5 %; Neutrophils # (auto) 5.48 K/uL (1.40-6.50); Neutrophils % (auto) 80.4 %; Platelet Count 156 K/uL (130-400); RDW Coefficient of Variation 14.4 % (11.5-14.5); RDW Standard Deviation 45.9 fL (36.4-46.3); Red Blood Count 3.88 M/uL (4.70-6.10); White Blood Count 6.82 K/ul (4.8-10.8)
[2022-12-26] MEDS: ACETAMINOPHEN 325 MG TAB PO PRN ×2 (08:28→14:56)
[2022-12-26] MEDS: ASPIRIN 81 MG ECTAB PO SCH (08:36)
[2022-12-26] MEDS: CLOPIDOGREL BISULFATE 75 MG TAB PO SCH (08:36)
[2022-12-26] MEDS: FLUDROCORTISONE ACETATE 0.1 MG TAB PO SCH (08:36)
[2022-12-26] MEDS: METOPROLOL TARTRATE 50 MG TAB PO SCH ×2 (08:36→21:24)
[2022-12-26] MEDS: MYCOPHENOLATE MOFETIL 250 MG CAP PO SCH ×2 (08:36→21:25)
[2022-12-26] MEDS: amLODIPine BESYLATE 5 MG TAB PO SCH (08:36)
[2022-12-26] MEDS: cycloSPORINE 100 MG CAP PO SCH ×2 (08:37→21:24)
[2022-12-26] MEDS: predniSONE 5 MG TAB PO SCH (08:37)
[2022-12-26 08:38] LABS: BUN Creatinine Ratio 18.6 (10-20); C Reactive Protein 13.46 mg/dl (0-0.5); Calcium 8.9 mg/dl (8.6-10.3); Creatinine Clr Calc Pharmacy 69.5 ml/min; Est GFR (Non-African American) 85.4 ml/min; Potassium 4.1 mmol/L (3.5-5.1)
[2022-12-26] MEDS: INSULIN ASPART PER UNIT CHARGE SC SCH ×4 (08:55→21:22)
[2022-12-26] MEDS ORDERED: cefTRIAXone SODIUM 1,000 MG in DEXTROSE 5% AD-VAN 50 ML IV SCH (09:00)
[2022-12-26] MEDS: LACTATED RINGER'S 1,000 ML IV SCH ×2 (09:32→21:36)
--- NOTE | 2022-12-26 09:44 | Hospitalist Progress Note ---
Date of Service December 26, 2022 Assessment & Plan (1) Complete heart block: Plan: 72yo male PMHx of diabetes, CKD, kidney transplant, aortic stenosis, carotic stenosis, MT s/p stent, bilateral BKA amputation, HTN, HLD, BPH, GERD, and CVA presents with weakness. Multifocal Pneumonia - New fever 12/26 in setting of c/o acute SOB - Chest CT 12/26: There is dense bibasilar airspace consolidation with milder patchy airspace consolidation seen throughout the upper lobes. The appearance is typical for multifocal pneumonia/aspiration pneumonitis - CRP 13.46, no leukocytosis - Started abx therapy with IV ceftriaxone and IV azithromycin 12/26 - mIVF with LR at 80 cc/hr - Supplemental O2 prn with goal O2 94% - Patient also w/ delirium s/p pacemaker placement/anesthesia. The delirium could be attributed to toxic (anesthesia), environment (was in the ICU, therefore ICU delirium vs. just being admitted in the hospital), but could also be infectious (related to this pneumonia). Continue to monitor and provide appropriate reorientation as able; try to avoid antipsychotics if able as this may prolong delirium in the long run. Treatment for infectious cause/pneumonia as noted above. - Will also check blood cultures and UA/urine cx Complete Heart Block -Now s/p permanent pacemaker placed on 12/23/22, revision performed on 12/24/22 -Management per electrophysiology, appreciate recs -Heart Healthy, DM2 Diet -goal K>4, Mag >2 HTN, Adrenal insufficiency? -cont amlodipine, fludrocortisone -hold metoprolol CAD, h/o MT s/p stent, h/o carotid stenosis s/p TCAR -cont. statin, ASA, plavix -hold metoprolol h/o CKD, s/p renal transplant -cont. prednisone, cyclosporine, mycophenolate GERD -cont. esomeprazole DM2, h/o bilateral BLK 2/2 diabetic complications -h/o hypoglycemic episodes on previous admission per family -discussed with pharmacy; glycemic consult placed, ICU glycemic protocol BPH -cont. flomax DVT ppx: on home ASA and plavix; pt has bilateral BLK amputation FEN/GI: Heart Healthy, DM2 Code Status: DNI only Dispo: PCU (2) CKD (chronic kidney disease), stage III: (3) Aortic stenosis: (4) Carotid stenosis: (5) Benign hypertension: (6) Diabetes mellitus: (7) Enlarged prostate without lower urinary tract symptoms (luts): (8) Gastroesophageal reflux disease: (9) Hypercholesterolemia: (10) Kidney replaced by transplant: (11) Stroke: (12) Multifocal pneumonia: Admission and Anticipated Discharge Date Admission Date: December 22, 2022 Supervising Physician Co-Signing Physician Notes I personally examined the patient and verified all berger points of history and exam, discussed case, and agree with decision making with Dr Acuña. still delirious, but more calm. dr tyler updated . Vitals noted, in general he is awake but confused. No distress at the time I see him. Breathing unlabored no accessory muscle use good effort, difficult exam but lungs seem coarse worse R>L no wheeze. Skin shows no rashes no pallor or icterus. Neuro without focal deficits. Complete heart blockstatus post pacer lead revision. Per cardiology. Appreciate cardiology input. Delirium/metabolic encephalopathyPer familyseems to happen anytime he has a procedure. Previously I discussed that the common course of delirium is would be that even after the anesthetic wears off, the hospital environment, as well as the nature of the delirium itself often last much longer. Family noted that his always abruptly resolvedwhich gave hope that it may be short-lived, but unfortunately this does not appear to be the case. In terms of metabolic factors, since he is fairly delirious and unlikely to be maintaining PO hydration - LR @ 80ml/hr, follow electrolytes with basic metabolic panel daily until he is doing better; septic/infectiousevolved - i had ordered CRP for this AM to screen since he was unable to voice symptoms - and he had a temp as well as the CRP returning at 13.5 --> further w/u highly suspicious for pneumonia (does have old scarring/chronic findings from x-rays ever since last summerbut CT is suspicious for pneumonia as is his clinical picture), unable to voice symptomstherefore UA/culture sent as well, blood cultures sentbut does appear to have findings consistent with pneumonia as an infectious cause of encephalopathy as wellazithromycin/Rocephin started; cathryn did have light anesthesia for initial pacemaker placement, none since, unfortunately with his risk to self and others he has needed a few doses of antipsychotic to protect himself from harm which can also be a bit deliriogenic, but no other overtly deliriogenic meds; environmentcertainly being in the hospitalparticularly being in the ICU can be very deliriogenic (unfortunately now he is at least able to be downgraded to PCU). Continue to follow closely. Reassurance/reorientation as possible. Subjective Patient seen and evaluated at bedside this morning. It is noted that over the past few hours, patient has become afebrile. He also complains of slight SOB; normal respiratory effort. He does appear to be confused and fluctuates between speaking clearly/intentionally and nonsensical. Overall it is reported that he has been less agitated/aggressive than he was yesterday. Review of Systems Review of Systems: Per HPI Physical Exam Physical Exam: GENERAL: Awake but confused. No distress. EYES: Anicteric sclerae. HENT: Moist mucous membranes. RESPIRATORY: Normal respiratory effort. + coarse breath sounds and rhonci in bilateral lung fitch. CARDIOVASCULAR: Regular rate and rhythm. + murmurs. No JVD. ABDOMEN: Soft, non-tender and non-distended. EXTREMITIES: Bilateral BKA. No gross deformities of BUE. SKIN: Warm, dry. No rashes. NEUROLOGIC: Awake and alert. Oriented x1 (person only). + facial droop, reported to be chronic. Results & Data Results & Data Vital Signs (Past 12 Hours) Vital Signs Temp Pulse Pulse Pulse Resp BP Pulse Ox 12/26/22 09:14 94 H 12/26/22 09:08 12/26/22 07:46 38.4 C H 88 20 158/91 H 94 12/26/22 00:00 101 H 12/26/22 03:06 37.9 C H 94 H 22 149/59 H 94 12/25/22 23:09 37.3 C 102 H 20 148/95 H 95 O2 Del Method O2 Flow Rate 12/26/22 09:14 12/26/22 09:08 Nasal Cannula 2 12/26/22 07:46 Nasal Cannula 2 12/26/22 00:00 12/26/22 03:06 Oxymask 2 12/25/22 23:09 Oxymask 2 Laboratory Results 12/26/22 12/26/22 12/26/22 Range/Units 11:47 07:48 05:32 WBC (4.8-10.8) K/ul RBC (4.70-6.10) M/uL Hgb (14.0-18.0) g/dl Hct (42.0-52.0) % MCV (80.0-100.0) fL MCH (25.0-34.0) pg MCHC (32.0-36.0) g/dL RDW Std Deviation (36.4-46.3) fL RDW Coeff of Natacha (11.5-14.5) % Plt Count (130-400) K/uL MPV (9.4-12.4) fL Immature Gran % (Auto) % Neut % (Auto) % Lymph % (Auto) % Hocking % (Auto) % Eos % (Auto) % Baso % (Auto) % Neut # (Auto) (1.40-6.50) K/uL Lymph # (Auto) (1.2-3.4) K/uL Hocking # (Auto) (0.11-0.59) K/uL Eos # (Auto) (0-0.50) K/uL Baso # (Auto) (0-0.2) K/uL Immature Gran # (Auto) (0.01-0.20) K/uL Sodium 142 (136-145) mmol/L Potassium 4.1 (3.5-5.1) mmol/L Chloride 109 H (98-107) mmol/L Carbon Dioxide 18 L (21-32) mmol/L Anion Gap 15 H (3-11) BUN 16 (6-23) mg/dl Creatinine 0.86 (0.6-1.4) mg/dl Est Cr Clr Drug Dosing 69.5 ml/min Est GFR ( Amer) 99.0 ml/min Est GFR (Non-Af Amer) 85.4 ml/min BUN/Creatinine Ratio 18.6 (10-20) Glucose 157 H (70-99(Fasting)) mg/dl POC Glucose 106 H 144 H (70-99) mg/dl Calcium 8.9 (8.6-10.3) mg/dl C-Reactive Protein 13.46 H (0-0.5) mg/dl 12/26/22 12/25/22 Range/Units 05:32 20:13 WBC 6.82 (4.8-10.8) K/ul RBC 3.88 L (4.70-6.10) M/uL Hgb 11.2 L (14.0-18.0) g/dl Hct 33.8 L (42.0-52.0) % MCV 87.1 (80.0-100.0) fL MCH 28.9 (25.0-34.0) pg MCHC 33.1 (32.0-36.0) g/dL RDW Std Deviation 45.9 (36.4-46.3) fL RDW Coeff of Natacha 14.4 (11.5-14.5) % Plt Count 156 (130-400) K/uL MPV 11.2 (9.4-12.4) fL Immature Gran % (Auto) 0.3 % Neut % (Auto) 80.4 % Lymph % (Auto) 8.8 % Hocking % (Auto) 9.5 % Eos % (Auto) 0.7 % Baso % (Auto) 0.3 % Neut # (Auto) 5.48 (1.40-6.50) K/uL Lymph # (Auto) 0.60 L (1.2-3.4) K/uL Hocking # (Auto) 0.65 H (0.11-0.59) K/uL Eos # (Auto) 0.05 (0-0.50) K/uL Baso # (Auto) 0.02 (0-0.2) K/uL Immature Gran # (Auto) 0.02 (0.01-0.20) K/uL Sodium (136-145) mmol/L Potassium (3.5-5.1) mmol/L Chloride (98-107) mmol/L Carbon Dioxide (21-32) mmol/L Anion Gap (3-11) BUN (6-23) mg/dl Creatinine (0.6-1.4) mg/dl Est Cr Clr Drug Dosing ml/min Est GFR ( Amer) ml/min Est GFR (Non-Af Amer) ml/min BUN/Creatinine Ratio (10-20) Glucose (70-99(Fasting)) mg/dl POC Glucose 155 H (70-99) mg/dl Calcium (8.6-10.3) mg/dl C-Reactive Protein (0-0.5) mg/dl Diagnostic Findings [place], [place] [phone] CT Scan Report Patient:YENI HADDAD Admit Date:12/22/22 MR#:[id number] Address1:[address] Acct ID:[id number] Address2: Date:1950 [facility] Zip:[place] [id number] Age:72 Location:2E Sex:M Room/Bed:[facility] Att Phy:Olman Lee D.O. Diagnosis:WEAKNESS, DIZZINESS Brittanie Phy:Srini Cordero MD Service Date:12/26/22 Fam Phy: Interpreting Phy:Nicolas Ervin MDAdmit Phy:Lior Knight DO Ordering Phy:Lucie Tyler DO cc: ~ CT SCAN OF THE CHEST WITH IV CONTRAST CLINICAL HISTORY: Fever and dyspnea. COMPARISON STUDY: Chest x-ray dated 12/25/2022. Chest CT dated 04/18/2022. TECHNIQUE: Following the IV administration of 94 cc of Optiray 350, CT scan of the thorax was performed from the thoracic inlet to the upper abdomen. Images are reviewed in the axial, sagittal, and coronal planes. IV contrast was administered without complication. A dose lowering technique was utilized adhering to the principles of ALARA. The examination is degraded by streak artifact from the arms which could not be elevated above the chest as well as by motion artifact. CT DOSE: 683.71 mGycm FINDINGS: Thyroid: Imaged portions of the thyroid gland are normal in size and attenuation. Thoracic aorta: There is other sclerotic calcification of the thoracic aorta, which is normal in caliber and demonstrates standard 3-vessel arch anatomy. No dissection is seen. A stent is partially visualized in the right common carotid artery. Pulmonary vasculature: The pulmonary trunk is normal in caliber. There are no filling defects identified in the central pulmonary vessels to indicate pulmonary embolus. Note that this examination was not protocoled for evaluation of the pulmonary arteries. Heart: A pacemaker is present in the left chest wall. Infiltration and subcutaneous gas in the chest wall around the pacemaker are likely related to recent implantation. The heart is enlarged and without pericardial effusion. The plantar arteries and mitral annulus are densely calcified. Lungs and pleural spaces: Evaluation of the lung parenchyma is degraded by carter on artifact. There are small pleural effusions with dense bibasilar consolidation. Milder patchy airspace consolidation is seen in the upper lobes, left greater than right. The trachea and central airways are clear. No pneumothorax is seen. There is a 16 mm groundglass opacity in the right upper lobe on image #120. There is a 7 mm nodular opacity seen at the left apex on image #29. Mediastinum: Mildly enlarged mediastinal nodes measure up to 10 mm in short axis. Mojgan: Mildly enlarged bilateral hilar nodes are likely reactive. These measure up to 13 mm short axis. Axillae: There is no axillary lymphadenopathy. Upper abdomen: The partially visualized kidneys are atrophic. There is a small hiatal hernia. The mid to distal esophagus appears significantly thick-walled. Skeletal structures: The skeletal structures are osteopenic. Degenerative change is noted in the shoulders and spine. No lytic or blastic bony lesions are seen. IMPRESSION: 1. Streak and motion compromised examination. 2. There is dense bibasilar airspace consolidation with milder patchy airspace consolidation seen throughout the upper lobes. The appearance is typical for multifocal pneumonia/aspiration pneumonitis. Clinical correlation will be required and radiographic follow-up to resolution is recommended. 3. Small pleural effusions. 4. A 16 mm groundglass opacity in the right upper lobe and a 7 mm nodular opacity at the left apex may be inflammatory. A follow-up chest CT in 3-4 months time is recommended to document resolution. 5. Cardiomegaly and cardiac pacemaker. Infiltration and subcutaneous gas in the left chest wall around the pacemaker site is likely related to recent implantation. Clinical correlation will be required. 6. The esophagus appears significantly thick-walled. This is nonspecific and could be seen with esophagitis. Correlate clinically. Consider further evaluation with endoscopy. 7. Mildly enlarged mediastinal and hilar lymph nodes are likely reactive. 8. Additional findings as above. ACT 112: Positive. There are findings on this exam that require communication between the performing entity and the patient following Patient Test Result Information Act ([place] Act 112) guidelines. Electronically signed by: Nicolas Ervin M.D. 12/26/2022 1:56 PM Dictated:12/26/22 1348 Transcribed: 12/26/22 134 Resident Activity Tracking Resident Involvement: Resident Care Provided Care Provided: [facility]
[2022-12-26] MEDS: POTASSIUM CHLORIDE CRTAB 20 MEQ TABCR PO SCH (11:20)
[2022-12-26] MEDS ORDERED: OPTIRAY 350 100ml IV ONE (12:13)
--- NOTE | 2022-12-26 13:58 | CT Scan Report ---
CT SCAN OF THE CHEST WITH IV CONTRAST CLINICAL HISTORY: Fever and dyspnea. COMPARISON STUDY: Chest x-ray dated 12/25/2022. Chest CT dated 04/18/2022. TECHNIQUE: Following the IV administration of 94 cc of Optiray 350, CT scan of the thorax was perform ed from the thoracic inlet to the upper abdomen. Images are reviewed in the axial, sagittal, and rose nal planes. IV contrast was administered without complication. A dose lowering technique was utilize d adhering to the principles of ALARA. The examination is degraded by streak artifact from the arms w hich could not be elevated above the chest as well as by motion artifact. CT DOSE: 683.71 mGycm FINDINGS: Thyroid: Imaged portions of the thyroid gland are normal in size and attenuation. Thoracic aorta: There is other sclerotic calcification of the thoracic aorta, which is normal in yogi yasmany and demonstrates standard 3-vessel arch anatomy. No dissection is seen. A stent is partially visu alized in the right common carotid artery. Pulmonary vasculature: The pulmonary trunk is normal in caliber. There are no filling defects identif ied in the central pulmonary vessels to indicate pulmonary embolus. Note that this examination was no t protocoled for evaluation of the pulmonary arteries. Heart: A pacemaker is present in the left chest wall. Infiltration and subcutaneous gas in the chest wall around the pacemaker are likely related to recent implantation. The heart is enlarged and withou t pericardial effusion. The plantar arteries and mitral annulus are densely calcified. Lungs and pleural spaces: Evaluation of the lung parenchyma is degraded by motion artifact. There are small pleural effusions with dense bibasilar consolidation. Milder patchy airspace consolidation is seen in the upper lobes, left greater than right. The trachea and central airways are clear. No pneum othorax is seen. There is a 16 mm groundglass opacity in the right upper lobe on image #120. There is a 7 mm nodular opacity seen at the left apex on image #29. Mediastinum: Mildly enlarged mediastinal nodes measure up to 10 mm in short axis. Mojgan: Mildly enlarged bilateral hilar nodes are likely reactive. These measure up to 13 mm short axis . Axillae: There is no axillary lymphadenopathy. Upper abdomen: The partially visualized kidneys are atrophic. There is a small hiatal hernia. The mid to distal esophagus appears significantly thick-walled. Skeletal structures: The skeletal structures are osteopenic. Degenerative change is noted in the shou lders and spine. No lytic or blastic bony lesions are seen. IMPRESSION: 1. Streak and motion compromised examination. 2. There is dense bibasilar airspace consolidation with milder patchy airspace consolidation seen thr oughout the upper lobes. The appearance is typical for multifocal pneumonia/aspiration pneumonitis. C linical correlation will be required and radiographic follow-up to resolution is recommended. 3. Small pleural effusions. 4. A 16 mm groundglass opacity in the right upper lobe and a 7 mm nodular opacity at the left apex ma y be inflammatory. A follow-up chest CT in 3-4 months time is recommended to document resolution. 5. Cardiomegaly and cardiac pacemaker. Infiltration and subcutaneous gas in the left chest wall aroun d the pacemaker site is likely related to recent implantation. Clinical correlation will be required. 6. The esophagus appears significantly thick-walled. This is nonspecific and could be seen with esoph agitis. Correlate clinically. Consider further evaluation with endoscopy. 7. Mildly enlarged mediastinal and hilar lymph nodes are likely reactive. 8. Additional findings as above. ACT 112: Positive. There are findings on this exam that require communication between the performing entity and the patient following Patient Test Result Information Act ([place] Act 112) guidelines. Electronically signed by: Nicolas Ervin M.D. 12/26/2022 1:56 PM
[2022-12-26] MEDS ORDERED: AZITHROMYCIN 500 MG in DEXTROSE 5% 250 ML IV SCH (14:45)
--- NOTE | 2022-12-26 17:31 | Billing Data ---
Date of Service December 26, 2022 Coding Level of Care Code 22480 SUB INP/OBS CARE MIN
[2022-12-26] MEDS: PANTOprazole 40 MG TAB PO SCH (21:24)
[2022-12-26] MEDS: TAMSULOSIN HCL 0.4 MG CAP PO SCH (21:24)
[2022-12-26] MEDS: ATORVASTATIN 40 MG TAB PO SCH (21:25)
--- NOTE | 2022-12-26 22:27 | Electrocardiogram Report ---
Test Reason : Blood Pressure : / mmHG Vent. Rate : 098 BPM Atrial Rate : 098 BPM P-R Int : 134 ms QRS Dur : 154 ms QT Int : 406 ms P-R-T Axes : 024 133 -06 degrees QTc Int : 518 ms Atrial-sensed ventricular-paced rhythm Abnormal ECG When compared with ECG of 23-DEC-2022 11:52, No significant change Confirmed by Thom Houston ([id number]) on 12/26/2022 10:27:26 PM Referred By: REFERRED SELF Confirmed By:Thom Houston
[2022-12-27 02:13] LABS: Appearance Urine Clear (Clear); Bacteria Urine Automated Negative (Negative); Blood Urine Negative (Negative); Color Urine Dark Yellow; Glucose Urine UA Negative (Negative); Ketones Urine 1+ (Negative); Leukocyte Esterase Urine Negative (Negative); Nitrite Urine Negative (Negative); Protein Urine 1+ (Negative); RBC Urine Automated 0-4 /hpf (0-4); Specific Gravity Urine 1.045 (1.000-1.030); Urobilinogen Urine Negative (Negative)
[2022-12-27] MEDS ORDERED: MoRPHine SULFATE 2 MG/ML CARP IV STA (02:16)
[2022-12-27] MEDS ORDERED: LACTATED RINGER'S 500 ML IV ONE (02:19)
[2022-12-27 02:22] LABS: Bilirubin Urine 1+ (Negative)
[2022-12-27] MEDS ORDERED: MoRPHine SULFATE 2 MG/ML CARP ONE (02:23)
[2022-12-27] MEDS ORDERED: ALBUMIN 5% 250 ML IV ONE (04:41)
[2022-12-27] MEDS ORDERED: SODIUM CHLOR 7% 4 ML NEB NEB STA (04:43)
[2022-12-27] MEDS ORDERED: HYDROCORTISONE SOD 100 MG in SYRINGE 0 ML IV STA (04:45)
[2022-12-27] MEDS ORDERED: PIPERACILLIN/TAZOBACTAM 4.5 GM in DEXTROSE 5% 100 ML IV SCH (05:00)
[2022-12-27] MEDS ORDERED: SODIUM BICARBONATE 8.4% INJ 50 MEQ/50 ML VIAL IV STA (05:31)
[2022-12-27] MEDS ORDERED: SODIUM BICARB 8.4% INJ 50 MEQ/50 ML SYR IV ONE ×2 (05:36→08:05)
[2022-12-27 05:42] LABS: iSTAT Allen Test Pass; iSTAT Art Bld Gas pCO2 Correct 33 mmHg (35-46); iSTAT Art Bld Gas pH Corrected 7.243 (7.35-7.45); iSTAT Arterial Blood Gas HCO3 14 meg/L (19-24); iSTAT Arterial Blood Gas pCO2 32 mmHg (35-46); iSTAT Arterial Blood Gas pH 7.26 (7.35-7.45); iSTAT Arterial Blood Gas pO2 40 mmHg (80-95); iSTAT Arterial Blood Gas pO2 C 43; iSTAT Carbon Dioxide 15 mmol/L (24-31); iSTAT FiO2 100 %; iSTAT Hematocrit 29 % (42-52); iSTAT Hemoglobin 9.9 g/dl (14.0-18.0); iSTAT Potassium 4.5 mmol/L (3.3-5.0); iSTAT Site L Radial; iSTAT Sodium 140 mmol/L (135-144)
[2022-12-27 06:03] LABS: Albumin Globulin Ratio 1.1 (0.9-2); Albumin Level 2.8 gm/dl (3.4-5.0); BUN Creatinine Ratio 19.1 (10-20); Bilirubin,Total 1.3 mg/dl (0.2-1.0); Calcium 8.8 mg/dl (8.6-10.3); Creatinine Clr Calc Pharmacy 39.3 ml/min; Est GFR (African American) 51.6 ml/min; Est GFR (Non-African American) 44.5 ml/min; Globulin 2.6 gm/dl (2.5-4.0); Magnesium 1.6 mg/dl (1.7-2.4); Potassium 4.9 mmol/L (3.5-5.1); Total Protein 5.4 gm/dl (6.0-8.3); Troponin I High Sensitivity 2313.1 pg/ml (0-20)
[2022-12-27 06:07] LABS: Basophils # (auto) 0.02 K/uL (0-0.2); Basophils % (auto) 0.3 %; Echinocytes 2+; Hematocrit (blood only) 30.2 % (42.0-52.0); Hemoglobin 9.7 g/dl (14.0-18.0); Immature Granulocytes # (auto) 0.03 K/uL (0.01-0.20); Immature Granulocytes % (auto) 0.4 %; Lymphocytes # (auto) 0.42 K/uL (1.2-3.4); Mean Corpuscular Hgb Conc 32.1 g/dL (32.0-36.0); Mean Corpuscular Volume 90.1 fL (80.0-100.0); Mean Platelet Volume 11.8 fL (9.4-12.4); Monocytes # (auto) 0.55 K/uL (0.11-0.59); Monocytes % (auto) 7.9 %; Neutrophils # (auto) 5.96 K/uL (1.40-6.50); Neutrophils % (auto) 85.4 %; Platelet Count 146 K/uL (130-400); RDW Coefficient of Variation 14.7 % (11.5-14.5); RDW Standard Deviation 48.6 fL (36.4-46.3); Red Blood Count 3.35 M/uL (4.70-6.10); White Blood Count 6.98 K/ul (4.8-10.8)
[2022-12-27] MEDS ORDERED: SODIUM CHLORIDE 0.9% 1000ML 1,000 ML IV ONE (06:30)
--- NOTE | 2022-12-27 06:50 | Communication Note ---
Date of Service: December 27, 2022 I was notified approximately at 2 AM the patient was experiencing respiratory distress and agitation. Observe the patient and examined him, he was clearly agitated and restless and certainly tachypneic with respiratory rates in the mid to high 30s. Patient was saturating high 80s/low 90s on 15 L nonrebreather. After discussing risks and benefits with pharmacy and nursing, elected to give 1 mg of IV morphine the patient for respiratory distress. Morphine was administered and patient seemed to begin breathing more slowly and agitation was certainly reduced per nursing. At approximately 4:30 AM a code purple was called due to hypotension with blood pressures in the 60s over 40s. Prior to my arrival I gave verbal order for a bolus of normal saline. Upon my arrival patient appeared lethargic and tachypneic. His breathing was labored and he had rattled respirations. It is at this time that a litany of labs including CBC, CMP, magnesium, troponin, ABG were drawn. Patient was put on nonrebreather with hypertonic saline. Prior to completion of normal saline bolus, 500 cc of 5% albumin was given followed by the remainder of the normal saline. Although while that these medications are being given, nursing and respiratory or suctioning the secretions from the patient. Because of his history of possible adrenal insufficiency and chronic steroid use, it 100 mg dose of hydrocortisone sodium succinate was given. Chest x-ray was also taken which had shown worsening of pneumonia and possibly vascular congestion. For this reason, Rocephin was switched to Zosyn. Azithromycin was kept on board for atypical coverage. ABG had shown respiratory acidosis at 7.24 and a low bicarb. For this reason, 50 mill equivalents of sodium bicarb was given as well. At the end of fluid resuscitation and medication administration, patient had been stabilized to a blood pressure of 128/93 and was saturating above 90% on 15 L via nonrebreather. Hypertonic saline nebulizer ordered twice daily until secretions improve. Duo nebs also added. Additionally, ordered manual chest percussion therapy with specifications not to percuss over the left anterior chest due to pacemaker placement. And lastly, all antihypertensives and beta-blockade were held given hypotension. Will relay information to day team provider for further recommendations and treatment.
[2022-12-27] MEDS ORDERED: SODIUM CHLOR 7% 4 ML NEB NEB SCH (07:00)
[2022-12-27] MEDS ORDERED: ALBUT/IPRATROP 3MG/0.5MG NEB 3 ML VIAL NEB SCH (07:00)
--- NOTE | 2022-12-27 07:21 | XRay Report ---
SINGLE VIEW CHEST CLINICAL HISTORY: Hypoxia. FINDINGS: An AP, portable, upright chest radiograph is compared to study dated 12/25/2022 and correlat ed with chest CT dated 12/26/2022. A 2-lead cardiac pacemaker is unchanged in position. The heart is e nlarged noting atherosclerotic calcification of the thoracic aorta. There is pulmonary vascular conge stion. There is increasing multifocal airspace consolidation throughout both lungs. Small pleural eff usions are noted. No pneumothorax is seen. The skeletal structures are osteopenic. There are chronic/ healed left-sided rib fractures. IMPRESSION: 1. Cardiomegaly and cardiac pacemaker with pulmonary vascular congestion. 2. There is increasing bilateral airspace consolidation. This could represent progressive pneumonia a nd/or pulmonary edema. Clinical correlation will be required. 3. Small pleural effusions. ACT 112: Negative or not required by law. Electronically signed by: Nicolas Ervin M.D. 12/27/2022 7:19 AM
--- NOTE | 2022-12-27 07:42 | Hospitalist Progress Note ---
Date of Service December 27, 2022 Assessment & Plan (1) Complete heart block: Plan: 72yo male PMHx of diabetes, CKD, kidney transplant, aortic stenosis, carotic stenosis, ID s/p stent, bilateral BKA amputation, HTN, HLD, BPH, GERD, and CVA presents with weakness. Multifocal Pneumonia - New fever 12/26 in setting of c/o acute SOB - Chest CT 12/26: There is dense bibasilar airspace consolidation with milder patchy airspace consolidation seen throughout the upper lobes. The appearance is typical for multifocal pneumonia/aspiration pneumonitis - CRP 13.46, no leukocytosis - Started abx therapy with IV ceftriaxone and IV azithromycin 12/26 - mIVF with LR at 80 cc/hr - Supplemental O2 prn with goal O2 94% - Patient also w/ delirium s/p pacemaker placement/anesthesia. The delirium could be attributed to toxic (anesthesia), environment (was in the ICU, therefore ICU delirium vs. just being admitted in the hospital), but could also be infectious (related to this pneumonia). Continue to monitor and provide appropriate reorientation as able; try to avoid antipsychotics if able as this may prolong delirium in the long run. Treatment for infectious cause/pneumonia as noted above. - Will also check blood cultures and UA/urine cx Complete Heart Block -Now s/p permanent pacemaker placed on 12/23/22, revision performed on 12/24/22 -Management per electrophysiology, appreciate recs -Heart Healthy, DM2 Diet -goal K>4, Mag >2 HTN, Adrenal insufficiency? -cont amlodipine, fludrocortisone -hold metoprolol CAD, h/o ID s/p stent, h/o carotid stenosis s/p TCAR -cont. statin, ASA, plavix -hold metoprolol h/o CKD, s/p renal transplant -cont. prednisone, cyclosporine, mycophenolate GERD -cont. esomeprazole DM2, h/o bilateral BLK 2/2 diabetic complications -h/o hypoglycemic episodes on previous admission per family -discussed with pharmacy; glycemic consult placed, ICU glycemic protocol BPH -cont. flomax DVT ppx: on home ASA and plavix; pt has bilateral BLK amputation FEN/GI: Heart Healthy, DM2 Code Status: DNI only Dispo: PCU (2) CKD (chronic kidney disease), stage III: (3) Aortic stenosis: (4) Carotid stenosis: (5) Benign hypertension: (6) Diabetes mellitus: (7) Enlarged prostate without lower urinary tract symptoms (luts): (8) Gastroesophageal reflux disease: (9) Hypercholesterolemia: (10) Kidney replaced by transplant: (11) Stroke: (12) Multifocal pneumonia: Admission and Anticipated Discharge Date Admission Date: December 22, 2022 Subjective Patient seen and evaluated at bedside this morning. Notified by nursing at 7:02am that patient again hypotensive with pressure of 80/34. He did have an eventful overnight period as well, including periods of hypotension, tachypnea, and hypoxia (see communication note). On my evaluation, patient remains tachypneic. Currently getting neb tx. Slightly agitated w/ hand sadaf restraints in place. No HPI obtained from patient himself. Review of Systems Review of Systems: See HPI Physical Exam Physical Exam: GENERAL: Agitated. + respiratory distress. HENT: Nonrebreather in place. RESPIRATORY: + coarse breath sounds and rhonci in bilateral lung fitch. CARDIOVASCULAR: Regular rate and rhythm. + murmur. + pacemaker palpable in left anterior chest wall. EXTREMITIES: Bilateral BKA. No gross deformities of BUE. SKIN: Diapohoretic. Results & Data Results & Data Vital Signs (Past 12 Hours) Vital Signs Temp Pulse Pulse Pulse Resp BP Pulse Ox 12/27/22 07:07 79 28 H 94 12/27/22 06:54 37.4 C 80 34 H 80/34 L 95 12/27/22 00:00 98 H 12/27/22 04:30 57/39 L 12/27/22 06:26 128/93 12/27/22 04:50 12/27/22 01:59 37.4 C 95 H 22 113/57 L 90 12/26/22 22:06 36.8 C 95 H 22 110/65 92 O2 Del Method O2 Flow Rate 12/27/22 07:07 Non-rebreather 12/27/22 06:54 Non-rebreather 12/27/22 00:00 12/27/22 04:30 12/27/22 06:26 12/27/22 04:50 Non-rebreather 12/27/22 01:59 Non-rebreather 12/26/22 22:06 Oxymask 7 Laboratory Results 12/27/22 12/27/22 12/27/22 Range/Units 07:22 07:21 07:12 WBC (4.8-10.8) K/ul RBC (4.70-6.10) M/uL Hgb (14.0-18.0) g/dl POC Hgb (14.0-18.0) g/dl Hct (42.0-52.0) % POC Hct (42-52) % MCV (80.0-100.0) fL MCH (25.0-34.0) pg MCHC (32.0-36.0) g/dL RDW Std Deviation (36.4-46.3) fL RDW Coeff of Natacha (11.5-14.5) % Plt Count (130-400) K/uL MPV (9.4-12.4) fL Immature Gran % (Auto) % Neut % (Auto) % Lymph % (Auto) % [place] % (Auto) % Eos % (Auto) % Baso % (Auto) % Neut # (Auto) (1.40-6.50) K/uL Lymph # (Auto) (1.2-3.4) K/uL [place] # (Auto) (0.11-0.59) K/uL Eos # (Auto) (0-0.50) K/uL Baso # (Auto) (0-0.2) K/uL Immature Gran # (Auto) (0.01-0.20) K/uL Echinocytes Sample Site POC pH (7.35-7.45) POC pCO2 (35-46) mmHg POC pO2 (80-95) mmHg POC HCO3 (19-24) parisa/L POC Total CO2 (24-31) mmol/L POC Base Excess (-9-1.8) parisa/L ABG pH (Temp Correct) (7.35-7.45) ABG pCO2 (Temp Corrct (35-46) mmHg POC ABG pO2 at Pt Temp POC ABG O2 Sat (90-95) % [place] Test O2 Delivery Device POC FiO2 % POC Sodium (135-144) mmol/L Sodium (136-145) mmol/L POC Potassium (3.3-5.0) mmol/L Potassium (3.5-5.1) mmol/L Chloride (98-107) mmol/L Carbon Dioxide (21-32) mmol/L Anion Gap (3-11) BUN (6-23) mg/dl Creatinine (0.6-1.4) mg/dl Est Cr Clr Drug Dosing ml/min Est GFR ( Amer) ml/min Est GFR (Non-Af Amer) ml/min BUN/Creatinine Ratio (10-20) Glucose (70-99(Fasting)) mg/dl POC Glucose 331 H* 335 H* (70-99) mg/dl Lactate Pending (0.4-2.0) mmol/L Calcium (8.6-10.3) mg/dl Magnesium (1.7-2.4) mg/dl Total Bilirubin (0.2-1.0) mg/dl AST (13-39) U/L ALT (7-52) U/L Alkaline Phosphatase (34-104) U/L Troponin I High Sens (0-20) pg/ml C-Reactive Protein (0-0.5) mg/dl Total Protein (6.0-8.3) gm/dl Albumin (3.4-5.0) gm/dl Globulin (2.5-4.0) gm/dl Albumin/Globulin Ratio (0.9-2) Random Cortisol mcg/dl Urine Color Urine Appearance (Clear) Urine pH (4.5-7.5) Ur Specific [place] (1.000-1.030) Urine Protein (Negative) Urine Glucose (UA) (Negative) Urine Ketones (Negative) Urine Blood (Negative) Urine Nitrite (Negative) Urine Bilirubin (Negative) Urine Urobilinogen (Negative) Ur Leukocyte Esterase (Negative) Urine WBC (Auto) (0-5) /hpf Urine RBC (Auto) (0-4) /hpf U Hyaline Cast (Auto) (0-5) /lpf U Epithel Cells (Auto) (0-5) /lpf Urine Bacteria (Auto) (Negative) Nasal Screen MRSA (PCR) (Negative) 12/27/22 12/27/22 12/27/22 Range/Units 05:28 05:23 05:23 WBC (4.8-10.8) K/ul RBC (4.70-6.10) M/uL Hgb (14.0-18.0) g/dl POC Hgb 9.9 L (14.0-18.0) g/dl Hct (42.0-52.0) % POC Hct 29 L (42-52) % MCV (80.0-100.0) fL MCH (25.0-34.0) pg MCHC (32.0-36.0) g/dL RDW Std Deviation (36.4-46.3) fL RDW Coeff of Natacha (11.5-14.5) % Plt Count (130-400) K/uL MPV (9.4-12.4) fL Immature Gran % (Auto) % Neut % (Auto) % Lymph % (Auto) % [place] % (Auto) % Eos % (Auto) % Baso % (Auto) % Neut # (Auto) (1.40-6.50) K/uL Lymph # (Auto) (1.2-3.4) K/uL [place] # (Auto) (0.11-0.59) K/uL Eos # (Auto) (0-0.50) K/uL Baso # (Auto) (0-0.2) K/uL Immature Gran # (Auto) (0.01-0.20) K/uL Echinocytes Sample Site L Radial POC pH 7.26 L (7.35-7.45) POC pCO2 32 L (35-46) mmHg POC pO2 40 L (80-95) mmHg POC HCO3 14 L (19-24) parisa/L POC Total CO2 15 L (24-31) mmol/L POC Base Excess -13.0 L (-9-1.8) parisa/L ABG pH (Temp Correct) 7.243 L (7.35-7.45) ABG pCO2 (Temp Corrct 33 L (35-46) mmHg POC ABG pO2 at Pt Temp 43 POC ABG O2 Sat 68.0 L (90-95) % [place] Test Pass O2 Delivery Device NonRb Mask POC FiO2 100 % POC Sodium 140 (135-144) mmol/L Sodium 140 (136-145) mmol/L POC Potassium 4.5 (3.3-5.0) mmol/L Potassium 4.9 (3.5-5.1) mmol/L Chloride 110 H (98-107) mmol/L Carbon Dioxide 14 L (21-32) mmol/L Anion Gap 16 H (3-11) BUN 29 H (6-23) mg/dl Creatinine 1.52 H D (0.6-1.4) mg/dl Est Cr Clr Drug Dosing 39.3 ml/min Est GFR ( Amer) 51.6 ml/min Est GFR (Non-Af Amer) 44.5 ml/min BUN/Creatinine Ratio 19.1 (10-20) Glucose 283 H (70-99(Fasting)) mg/dl POC Glucose (70-99) mg/dl Lactate 2.3 H* (0.4-2.0) mmol/L Calcium 8.8 (8.6-10.3) mg/dl Magnesium 1.6 L (1.7-2.4) mg/dl Total Bilirubin 1.3 H (0.2-1.0) mg/dl AST 32 (13-39) U/L ALT 8 (7-52) U/L Alkaline Phosphatase 57 (34-104) U/L Troponin I High Sens 2313.1 H* (0-20) pg/ml C-Reactive Protein (0-0.5) mg/dl Total Protein 5.4 L (6.0-8.3) gm/dl Albumin 2.8 L (3.4-5.0) gm/dl Globulin 2.6 (2.5-4.0) gm/dl Albumin/Globulin Ratio 1.1 (0.9-2) Random Cortisol mcg/dl Urine Color Urine Appearance (Clear) Urine pH (4.5-7.5) Ur Specific [place] (1.000-1.030) Urine Protein (Negative) Urine Glucose (UA) (Negative) Urine Ketones (Negative) Urine Blood (Negative) Urine Nitrite (Negative) Urine Bilirubin (Negative) Urine Urobilinogen (Negative) Ur Leukocyte Esterase (Negative) Urine WBC (Auto) (0-5) /hpf Urine RBC (Auto) (0-4) /hpf U Hyaline Cast (Auto) (0-5) /lpf U Epithel Cells (Auto) (0-5) /lpf Urine Bacteria (Auto) (Negative) Nasal Screen MRSA (PCR) (Negative) 12/27/22 12/27/22 12/27/22 Range/Units 05:23 04:52 04:41 WBC 6.98 (4.8-10.8) K/ul RBC 3.35 L (4.70-6.10) M/uL Hgb 9.7 L (14.0-18.0) g/dl POC Hgb (14.0-18.0) g/dl Hct 30.2 L (42.0-52.0) % POC Hct (42-52) % MCV 90.1 (80.0-100.0) fL MCH 29.0 (25.0-34.0) pg MCHC 32.1 (32.0-36.0) g/dL RDW Std Deviation 48.6 H (36.4-46.3) fL RDW Coeff of Natacha 14.7 H (11.5-14.5) % Plt Count 146 (130-400) K/uL MPV 11.8 (9.4-12.4) fL Immature Gran % (Auto) 0.4 % Neut % (Auto) 85.4 % Lymph % (Auto) 6.0 % [place] % (Auto) 7.9 % Eos % (Auto) 0.0 % Baso % (Auto) 0.3 % Neut # (Auto) 5.96 (1.40-6.50) K/uL Lymph # (Auto) 0.42 L (1.2-3.4) K/uL [place] # (Auto) 0.55 (0.11-0.59) K/uL Eos # (Auto) 0.00 (0-0.50) K/uL Baso # (Auto) 0.02 (0-0.2) K/uL Immature Gran # (Auto) 0.03 (0.01-0.20) K/uL Echinocytes 2+ Sample Site POC pH (7.35-7.45) POC pCO2 (35-46) mmHg POC pO2 (80-95) mmHg POC HCO3 (19-24) parisa/L POC Total CO2 (24-31) mmol/L POC Base Excess (-9-1.8) parisa/L ABG pH (Temp Correct) (7.35-7.45) ABG pCO2 (Temp Corrct (35-46) mmHg POC ABG pO2 at Pt Temp POC ABG O2 Sat (90-95) % [place] Test O2 Delivery Device POC FiO2 % POC Sodium (135-144) mmol/L Sodium (136-145) mmol/L POC Potassium (3.3-5.0) mmol/L Potassium (3.5-5.1) mmol/L Chloride (98-107) mmol/L Carbon Dioxide (21-32) mmol/L Anion Gap (3-11) BUN (6-23) mg/dl Creatinine (0.6-1.4) mg/dl Est Cr Clr Drug Dosing ml/min Est GFR ( Amer) ml/min Est GFR (Non-Af Amer) ml/min BUN/Creatinine Ratio (10-20) Glucose (70-99(Fasting)) mg/dl POC Glucose 291 H (70-99) mg/dl Lactate (0.4-2.0) mmol/L Calcium (8.6-10.3) mg/dl Magnesium (1.7-2.4) mg/dl Total Bilirubin (0.2-1.0) mg/dl AST (13-39) U/L ALT (7-52) U/L Alkaline Phosphatase (34-104) U/L Troponin I High Sens (0-20) pg/ml C-Reactive Protein (0-0.5) mg/dl Total Protein (6.0-8.3) gm/dl Albumin (3.4-5.0) gm/dl Globulin (2.5-4.0) gm/dl Albumin/Globulin Ratio (0.9-2) Random Cortisol 45.94 mcg/dl Urine Color Urine Appearance (Clear) Urine pH (4.5-7.5) Ur Specific [place] (1.000-1.030) Urine Protein (Negative) Urine Glucose (UA) (Negative) Urine Ketones (Negative) Urine Blood (Negative) Urine Nitrite (Negative) Urine Bilirubin (Negative) Urine Urobilinogen (Negative) Ur Leukocyte Esterase (Negative) Urine WBC (Auto) (0-5) /hpf Urine RBC (Auto) (0-4) /hpf U Hyaline Cast (Auto) (0-5) /lpf U Epithel Cells (Auto) (0-5) /lpf Urine Bacteria (Auto) (Negative) Nasal Screen MRSA (PCR) (Negative) 12/27/22 12/26/22 12/26/22 Range/Units 02:00 Unknown 20:07 WBC (4.8-10.8) K/ul RBC (4.70-6.10) M/uL Hgb (14.0-18.0) g/dl POC Hgb (14.0-18.0) g/dl Hct (42.0-52.0) % POC Hct (42-52) % MCV (80.0-100.0) fL MCH (25.0-34.0) pg MCHC (32.0-36.0) g/dL RDW Std Deviation (36.4-46.3) fL RDW Coeff of Natacha (11.5-14.5) % Plt Count (130-400) K/uL MPV (9.4-12.4) fL Immature Gran % (Auto) % Neut % (Auto) % Lymph % (Auto) % [place] % (Auto) % Eos % (Auto) % Baso % (Auto) % Neut # (Auto) (1.40-6.50) K/uL Lymph # (Auto) (1.2-3.4) K/uL [place] # (Auto) (0.11-0.59) K/uL Eos # (Auto) (0-0.50) K/uL Baso # (Auto) (0-0.2) K/uL Immature Gran # (Auto) (0.01-0.20) K/uL Echinocytes Sample Site POC pH (7.35-7.45) POC pCO2 (35-46) mmHg POC pO2 (80-95) mmHg POC HCO3 (19-24) parisa/L POC Total CO2 (24-31) mmol/L POC Base Excess (-9-1.8) parisa/L ABG pH (Temp Correct) (7.35-7.45) ABG pCO2 (Temp Corrct (35-46) mmHg POC ABG pO2 at Pt Temp POC ABG O2 Sat (90-95) % [place] Test O2 Delivery Device POC FiO2 % POC Sodium (135-144) mmol/L Sodium (136-145) mmol/L POC Potassium (3.3-5.0) mmol/L Potassium (3.5-5.1) mmol/L Chloride (98-107) mmol/L Carbon Dioxide (21-32) mmol/L Anion Gap (3-11) BUN (6-23) mg/dl Creatinine (0.6-1.4) mg/dl Est Cr Clr Drug Dosing ml/min Est GFR ( Amer) ml/min Est GFR (Non-Af Amer) ml/min BUN/Creatinine Ratio (10-20) Glucose (70-99(Fasting)) mg/dl POC Glucose 195 H (70-99) mg/dl Lactate (0.4-2.0) mmol/L Calcium (8.6-10.3) mg/dl Magnesium (1.7-2.4) mg/dl Total Bilirubin (0.2-1.0) mg/dl AST (13-39) U/L ALT (7-52) U/L Alkaline Phosphatase (34-104) U/L Troponin I High Sens (0-20) pg/ml C-Reactive Protein (0-0.5) mg/dl Total Protein (6.0-8.3) gm/dl Albumin (3.4-5.0) gm/dl Globulin (2.5-4.0) gm/dl Albumin/Globulin Ratio (0.9-2) Random Cortisol mcg/dl Urine Color Dark Yellow Urine Appearance Clear (Clear) Urine pH 5.0 (4.5-7.5) Ur Specific [place] 1.045 H (1.000-1.030) Urine Protein 1+ H (Negative) Urine Glucose (UA) Negative (Negative) Urine Ketones 1+ H (Negative) Urine Blood Negative (Negative) Urine Nitrite Negative (Negative) Urine Bilirubin 1+ H (Negative) Urine Urobilinogen Negative (Negative) Ur Leukocyte Esterase Negative (Negative) Urine WBC (Auto) 1-5 (0-5) /hpf Urine RBC (Auto) 0-4 (0-4) /hpf U Hyaline Cast (Auto) 1-5 (0-5) /lpf U Epithel Cells (Auto) 5-10 H (0-5) /lpf Urine Bacteria (Auto) Negative (Negative) Nasal Screen MRSA (PCR) Negative (Negative) 12/26/22 12/26/22 12/26/22 Range/Units 16:20 11:47 07:48 WBC (4.8-10.8) K/ul RBC (4.70-6.10) M/uL Hgb (14.0-18.0) g/dl POC Hgb (14.0-18.0) g/dl Hct (42.0-52.0) % POC Hct (42-52) % MCV (80.0-100.0) fL MCH (25.0-34.0) pg MCHC (32.0-36.0) g/dL RDW Std Deviation (36.4-46.3) fL RDW Coeff of Natacha (11.5-14.5) % Plt Count (130-400) K/uL MPV (9.4-12.4) fL Immature Gran % (Auto) % Neut % (Auto) % Lymph % (Auto) % [place] % (Auto) % Eos % (Auto) % Baso % (Auto) % Neut # (Auto) (1.40-6.50) K/uL Lymph # (Auto) (1.2-3.4) K/uL [place] # (Auto) (0.11-0.59) K/uL Eos # (Auto) (0-0.50) K/uL Baso # (Auto) (0-0.2) K/uL Immature Gran # (Auto) (0.01-0.20) K/uL Echinocytes Sample Site POC pH (7.35-7.45) POC pCO2 (35-46) mmHg POC pO2 (80-95) mmHg POC HCO3 (19-24) parisa/L POC Total CO2 (24-31) mmol/L POC Base Excess (-9-1.8) parisa/L ABG pH (Temp Correct) (7.35-7.45) ABG pCO2 (Temp Corrct (35-46) mmHg POC ABG pO2 at Pt Temp POC ABG O2 Sat (90-95) % [place] Test O2 Delivery Device POC FiO2 % POC Sodium (135-144) mmol/L Sodium (136-145) mmol/L POC Potassium (3.3-5.0) mmol/L Potassium (3.5-5.1) mmol/L Chloride (98-107) mmol/L Carbon Dioxide (21-32) mmol/L Anion Gap (3-11) BUN (6-23) mg/dl Creatinine (0.6-1.4) mg/dl Est Cr Clr Drug Dosing ml/min Est GFR ( Amer) ml/min Est GFR (Non-Af Amer) ml/min BUN/Creatinine Ratio (10-20) Glucose (70-99(Fasting)) mg/dl POC Glucose 232 H 106 H 144 H (70-99) mg/dl Lactate (0.4-2.0) mmol/L Calcium (8.6-10.3) mg/dl Magnesium (1.7-2.4) mg/dl Total Bilirubin (0.2-1.0) mg/dl AST (13-39) U/L ALT (7-52) U/L Alkaline Phosphatase (34-104) U/L Troponin I High Sens (0-20) pg/ml C-Reactive Protein (0-0.5) mg/dl Total Protein (6.0-8.3) gm/dl Albumin (3.4-5.0) gm/dl Globulin (2.5-4.0) gm/dl Albumin/Globulin Ratio (0.9-2) Random Cortisol mcg/dl Urine Color Urine Appearance (Clear) Urine pH (4.5-7.5) Ur Specific [place] (1.000-1.030) Urine Protein (Negative) Urine Glucose (UA) (Negative) Urine Ketones (Negative) Urine Blood (Negative) Urine Nitrite (Negative) Urine Bilirubin (Negative) Urine Urobilinogen (Negative) Ur Leukocyte Esterase (Negative) Urine WBC (Auto) (0-5) /hpf Urine RBC (Auto) (0-4) /hpf U Hyaline Cast (Auto) (0-5) /lpf U Epithel Cells (Auto) (0-5) /lpf Urine Bacteria (Auto) (Negative) Nasal Screen MRSA (PCR) (Negative) 12/26/22 12/26/22 Range/Units 05:32 05:32 WBC 6.82 (4.8-10.8) K/ul RBC 3.88 L (4.70-6.10) M/uL Hgb 11.2 L (14.0-18.0) g/dl POC Hgb (14.0-18.0) g/dl Hct 33.8 L (42.0-52.0) % POC Hct (42-52) % MCV 87.1 (80.0-100.0) fL MCH 28.9 (25.0-34.0) pg MCHC 33.1 (32.0-36.0) g/dL RDW Std Deviation 45.9 (36.4-46.3) fL RDW Coeff of Natacha 14.4 (11.5-14.5) % Plt Count 156 (130-400) K/uL MPV 11.2 (9.4-12.4) fL Immature Gran % (Auto) 0.3 % Neut % (Auto) 80.4 % Lymph % (Auto) 8.8 % [place] % (Auto) 9.5 % Eos % (Auto) 0.7 % Baso % (Auto) 0.3 % Neut # (Auto) 5.48 (1.40-6.50) K/uL Lymph # (Auto) 0.60 L (1.2-3.4) K/uL [place] # (Auto) 0.65 H (0.11-0.59) K/uL Eos # (Auto) 0.05 (0-0.50) K/uL Baso # (Auto) 0.02 (0-0.2) K/uL Immature Gran # (Auto) 0.02 (0.01-0.20) K/uL Echinocytes Sample Site POC pH (7.35-7.45) POC pCO2 (35-46) mmHg POC pO2 (80-95) mmHg POC HCO3 (19-24) parisa/L POC Total CO2 (24-31) mmol/L POC Base Excess (-9-1.8) parisa/L ABG pH (Temp Correct) (7.35-7.45) ABG pCO2 (Temp Corrct (35-46) mmHg POC ABG pO2 at Pt Temp POC ABG O2 Sat (90-95) % [place] Test O2 Delivery Device POC FiO2 % POC Sodium (135-144) mmol/L Sodium 142 (136-145) mmol/L POC Potassium (3.3-5.0) mmol/L Potassium 4.1 (3.5-5.1) mmol/L Chloride 109 H (98-107) mmol/L Carbon Dioxide 18 L (21-32) mmol/L Anion Gap 15 H (3-11) BUN 16 (6-23) mg/dl Creatinine 0.86 (0.6-1.4) mg/dl Est Cr Clr Drug Dosing 69.5 ml/min Est GFR ( Amer) 99.0 ml/min Est GFR (Non-Af Amer) 85.4 ml/min BUN/Creatinine Ratio 18.6 (10-20) Glucose 157 H (70-99(Fasting)) mg/dl POC Glucose (70-99) mg/dl Lactate (0.4-2.0) mmol/L Calcium 8.9 (8.6-10.3) mg/dl Magnesium (1.7-2.4) mg/dl Total Bilirubin (0.2-1.0) mg/dl AST (13-39) U/L ALT (7-52) U/L Alkaline Phosphatase (34-104) U/L Troponin I High Sens (0-20) pg/ml C-Reactive Protein 13.46 H (0-0.5) mg/dl Total Protein (6.0-8.3) gm/dl Albumin (3.4-5.0) gm/dl Globulin (2.5-4.0) gm/dl Albumin/Globulin Ratio (0.9-2) Random Cortisol mcg/dl Urine Color Urine Appearance (Clear) Urine pH (4.5-7.5) Ur Specific [place] (1.000-1.030) Urine Protein (Negative) Urine Glucose (UA) (Negative) Urine Ketones (Negative) Urine Blood (Negative) Urine Nitrite (Negative) Urine Bilirubin (Negative) Urine Urobilinogen (Negative) Ur Leukocyte Esterase (Negative) Urine WBC (Auto) (0-5) /hpf Urine RBC (Auto) (0-4) /hpf U Hyaline Cast (Auto) (0-5) /lpf U Epithel Cells (Auto) (0-5) /lpf Urine Bacteria (Auto) (Negative) Nasal Screen MRSA (PCR) (Negative)
--- NOTE | 2022-12-27 07:43 | Electrocardiogram Report ---
Test Reason : Blood Pressure : / mmHG Vent. Rate : 081 BPM Atrial Rate : 081 BPM P-R Int : 138 ms QRS Dur : 162 ms QT Int : 446 ms P-R-T Axes : 021 142 -13 degrees QTc Int : 518 ms Atrial-sensed ventricular-paced rhythm Abnormal ECG When compared with ECG of 25-DEC-2022 14:23, Vent. rate has decreased BY 17 BPM Confirmed by Son Ramon ([id number]) on 12/27/2022 7:42:52 AM Referred By: REFERRED SELF Confirmed By:Sameer Ramon
[2022-12-27] MEDS ORDERED: PHENYLEPHRINE HCL 25 MG/250 ML NSS IV ONE (07:45)
[2022-12-27] MEDS ORDERED: LANTUS PER UNIT CHARGE SQ ONE (07:45)
[2022-12-27] MEDS ORDERED: VANCOMYCIN CONSULT ACTIVE PRN (07:49)
[2022-12-27] MEDS ORDERED: NALOXONE HCL 0.4 MG/1 ML VIAL/CARP ONE ×2 (07:57→08:00)
[2022-12-27] MEDS ORDERED: VANCOMYCIN HCL 1,250 MG in SODIUM CHLORIDE 0.9% 250 ML IV ONE (08:00)
--- NOTE | 2022-12-27 08:33 | Critical Care Progress Note ---
Date of Service December 27, 2022 Assessment & Plan (1) CHB (complete heart block): (2) CKD (chronic kidney disease), stage III: (3) Acute respiratory failure with hypoxia: (4) S/P bilateral BKA (below knee amputation): (5) Diabetes mellitus: (6) Gastroesophageal reflux disease: (7) Hypercholesterolemia: (8) Kidney replaced by transplant: (9) Stroke: (10) Weakness: (11) Aortic stenosis: Plan Reason Critically Ill: 72-year-old male past medical history of renal transplant on prednisone, tacrolimus and fludrocortisone, hypertension, BPH admitted to the hospital for heart block. Patient went into complete heart block with hypotension. Sent to the ICU for further management Neuro - [facility] ICU: -- Metabolic encephalopathy Likely from hypotension and hypoxia --History of old stroke with left-sided endarterectomy Has chronic right-sided facial droop This was confirmed by talking to the patient's on the phone at 12/23/2022, 7:52 AM Continue with neurochecks Cardiac - --Shock Likely septic vasopressor support to keep MAP greater than 65 -- Complete heart block s/p PPM 12/23/2022 Respiratory - -- Acute hypoxic respiratory failure Worsening appreciated on the chest x-ray 12/27/2022 -- Chronic interstitial changes of the lung Appreciated initially on the CT chest in April 2022 when the patient had COVID Latest chest x-ray shows the same No need for oxygenation right now. Continue with O2 as needed to keep O2 saturation greater than 90 GI - -- GERD Continue with pantoprazole RENAL/LYTES - -- ERASMO Likely from hypotensive episode Monitor BUN/creatinine Avoid nephrotoxic medications Strict ins and outs -- History of renal transplant On mycophenolate, cyclosporine, prednisone 5 mg - -- BPH On tamsulosin at home ENDO - -- Chronic prednisone use with adrenal insufficiency On fludrocortisone at home HEME - -- Monitor H&H ID - -- Chronically immunosuppressed No clear signs of infection right now -- DNI -- Prophylaxis VTE: None GI: Pantoprazole Lines: Peripheral Diet: Cardiac Plan: In/Out +3.3 L, urine output 250 ERASMO is most likely from septic shock. Patient in agonal breathing Prognosis is guarded Patient is DNI. Okay to use vasopressors. We will give Narcan given the patient with morphine around 1 AM. Start the patient on Levophed and add vasopressin. We will start the patient on high flow as well I have personally spent 55 minutes of critical care time in the direct management of this patient. This is a life/limb threatening event. This includes time spent evaluating patient, direct bedside care, chart review, placing orders, interpretation of diagnostic studies, discussion with consultants, patient, and family members, as well as other required patient management activities. This time is exclusive of all separately billable procedures, and teaching time and separate from and in addition to any other critical care service time. Please note the above document was generated using voice recognition software. It may contain grammatical, syntax or spelling errors. Admission and Anticipated Discharge Date Admission Date: December 22, 2022 Subjective 72-year-old male known to ICU as he presented to the hospital and complete heart block He had dual-lead pacemaker placed and and subsequently downgraded to a medical floor. Overnight patient was found to be hypotensive restless agitated He got morphine around 1 AM. When I saw him in the ICU patient's systolic blood pressure was in the 50s satur ation was in the mid 70s. He was cold and clammy He was not following any commands had agonal breathing Signout was given by family partner Review of Systems Review of Systems: Unobtainable due to mental health condition Physical Exam Physical Exam: Constitutional: Agonal breathing HEENT: PERRLA, minimal right-sided facial droop (chronic as per the patient) Respiratory system: Decreased air entry bilaterally, no wheeze, no rhonchi, positive crackles bilateral lobes more on the left side CVS: S1-S2 positive, Positive 3 out of 6 systolic murmur appreciated best at the apex Abdomen: Soft, nontender, nondistended, positive bowel sounds x4 Extremities: +2 pulses bilaterally radialis/ dorsalis pedis, no cyanosis, no e mayur, bilateral BKA Neuro: Agonal breathing, not following any commands Psych: Unable to assess G/U: Positive Yu Skin: no rashes, warm and dry Lymphatic: no cervical or axillary lymphadenopathy Results & Data Results & Data Vital Signs (Past 12 Hours) Vital Signs Temp Pulse Pulse Pulse Resp BP Pulse Ox 12/27/22 08:03 60 71 L 12/27/22 07:07 79 28 H 94 12/27/22 06:54 37.4 C 80 34 H 80/34 L 95 12/27/22 00:00 98 H 12/27/22 04:30 57/39 L 12/27/22 06:26 128/93 12/27/22 04:50 12/27/22 01:59 37.4 C 95 H 22 113/57 L 90 12/26/22 22:06 36.8 C 95 H 22 110/65 92 O2 Del Method O2 Flow Rate FiO2 12/27/22 08:03 High Flow Nasal Cannula 40 100 12/27/22 07:07 Non-rebreather 15 12/27/22 06:54 Non-rebreather 13 12/27/22 00:00 12/27/22 04:30 12/27/22 06:26 12/27/22 04:50 Non-rebreather 12/27/22 01:59 Non-rebreather 12/26/22 22:06 Oxymask 7 Laboratory Results 12/27/22 04:52 12/27/22 05:23 Coding Level of Care Code 58271 CRITICAL CARE 1ST 30-74M Diagnoses CHB (complete heart block) I44.2 CKD (chronic kidney disease), stage III N18.30 Acute respiratory failure with hypoxia J96.01 S/P bilateral BKA (below knee amputation) Z89.512; Z89.511 Diabetes mellitus E11.9 Gastroesophageal reflux disease K21.9 Hypercholesterolemia E78.00 Kidney replaced by transplant Z94.0 Stroke I63.9 Weakness R53.1 Aortic stenosis I35.0 Time Spent (min) 55
--- NOTE | 2022-12-27 08:35 | Procedure Note ---
Procedure Note Date of Service December 27, 2022 Note Procedure: Inserting ultrasound-guided central overlock waistline joiner: Dr. Michael Oliveira Indication: Hypotension Consent: Emergent consent was applied Anesthesia: 1% lidocaine without epinephrine local. Procedure: Consent was verified and timeout performed. Appropriate imaging studies were reviewed prior to the procedure. Under aseptic and sterile condition, right femoral vein was accessed under direct ultrasound guidance. Guidewire was confirmed to be within the lumen of vein with the help of ultrasound. Catheter was introduced via Seldinger technique. Guide a wire was removed. Good non-pulsatile blood flow was appreciated from all the ports. The catheter was placed at 24 cm and sut[address] in place. BioPatch was applied to the catheter and a sterile Tegaderm dressing was applied over the catheter with careful attention to sterility. Patient tolerated the procedure well. Blood loss: Less than 2 cc Complications: None Coding CPT Codes Tubes, Drains, and Vasc Access - Tubes, Drains, and Vasc Access: [id number] Place catheter in vein superior or inferior vena cava ([id number]) Tubes, Drains, and Vasc Access - Tubes, Drains, and Vasc Access: [id number] Ultrasound Guidance For Vascular ([id number]) [facility] [place] Codes (Charges) Tubes, Drains, and Vasc Access Procedure 1: Tubes, Drains, and Vasc Access: [id number] Place catheter in vein superior or inferior vena cava Procedure 2: Tubes, Drains, and Vasc Access: [id number] Ultrasound Guidance For Vascular
[2022-12-27] MEDS ORDERED: CEFEPIME 2,000 MG in SYRINGE 0 ML IV SCH (09:00)
--- NOTE | 2022-12-27 11:56 | Procedure Note ---
Procedure Note Date of Service December 27, 2022 Note CODE BLUE NOTE:- Date: 12/27/2022 When patient came to the ICU patient's blood pressure was on the lower side with systolic in the mid 50s. He was started on Levophed and was increased to 0.5. No significant response He also got bolus of 500 mL of fluid. Patient was also getting significantly hypoxic. He presented with oxygen saturation in the low 70s Patient pulse got very feeble and he went into PEA CPR was started 8:06 AM. Patient got total 8 epi, 4 bicarb, 2 calcium chloride. Unfortunately ROSC was not obtained. Patient was pronounced at 8:29 AM Family was contacted on the phone by Nicolas Kauffman PA-C. Patients primary service was contacted and made aware of patient demise. Please note the above document was generated using voice recognition software. It may contain grammatical, syntax or spelling errors.Any formal questions or concerns about the content, text or information contained within the body of this dictation should be directly addressed to the provider for clarification. Coding CPT Codes Resuscitation - Resuscitation: 15824 Heart/lung resuscitation CPR ([id number]) [facility] [place] Procedure Codes (Charges) Resuscitation Resuscitation: 44575 Heart/lung resuscitation CPR
[2022-12-27] MEDS ORDERED: HYDROCORTISONE SOD 50 MG in SYRINGE 0 ML IV SCH (13:00)
--- NOTE | 2022-12-27 16:38 | Discharge Summary ---
Date of Service December 27, 2022 Admission HPI Per Admitting Provider 72yo male PMHx of diabetes, CKD, kidney transplant, aortic stenosis, carotic stenosis, TN s/p stent, bilateral BKA amputation, HTN, HLD, BPH, GERD, and CVA presents with weakness. A few hours earlier, pt had gotten up from his recliner to go eat dinner and felt dizzy and weak standing up. Associated headache. His symptoms persisted throughout dinner and when back in his recliner he seemed to have dozed off and when awoken started throwing his hands up in the air as if something were wrong. EMS was called and on arrival HR was found to be in the 20s. BP was stable at the time so with careful monitoring his HRs elevated to the 40s/50s without intervention. Denies fever, chest pain, shortness of breath, abd pain, N/V/D, constipation, dysuria. Of note he did feel a little dizzy and weak last night as well but that resolved with Tylenol. Pt also states he has been getting progressively weaker over the last few weeks, HR was never checked within that time frame. Admission Exam Per Admitting Provider Constitutional: in no acute distress, pleasant, intact memory. AOx3. Vitals as above. HEENT: No scleral injection or discharge.Moist mucous membranes. EOMI. PERRL. Neck: Supple without lymphadenopathy or thyromegaly. Trachea midline. Lungs: Clear to auscultation bilaterally with good effort. Cardiac: Irregular rhythm. Bradycardic. No JVD. +holosystolic murmur. Abdomen: Bowel sounds present. Soft, nontender, and nondistended.No guarding. No hepatosplenomegaly. MSK: No cyanosis or clubbing. +bilateral BKA amputation. Skin: No rashes, warm, dry. Neurologic: no focal deficits Principal Diagnosis septic shock, pneumonia, complete heart block Discharge Exam Patient , pronounced at 0829. Please see documentation for CODE BLUE procedure note by Dr. Oliveira on 12/27 at 0900. Discharge Data Allergies Allergy/AdvReac Type Severity Reaction Status Date / Time hydromorphone [From Dilaudid] Allergy Severe Respiratory Verified 12/22/22 20:09 Arrest gabapentin Allergy Unknown Unknown Verified 12/22/22 20:09 Consultations 12/22/22 19:51 ED Decision to Admit Stat 12/22/22 21:20 Consult Cardiology Routine 12/27/22 07:49 Consult Consumer Marketing Analyst Routine Procedures Performed Operation Date: 12/24/22 15:00 Actual Procedures p Lead Reposition RA/RV - Son Ramon MD Ordered Studies 12/23/22 09:00 EP Lab Images for PACS ONCE 12/24/22 14:44 CL Cath Imgs for PACS use only Routine 12/26/22 09:34 CT chest diagnostic w con Urgent Hospital Course (1) Multifocal pneumonia: (2) CHB (complete heart block): (3) Septic shock: Plan 72yo male with significant PMHx of diabetes, CKD, kidney transplant, aortic stenosis, carotic stenosis, TN s/p stent, bilateral BKA amputation, HTN, HLD, BPH, GERD, and CVA admitted on 12/22/22 in complete heart block. Patient was initially admitted to the hospital for complete heart block after presenting to the ER with complaint of dizziness/weakness. Patient underwent permanent pacemaker placement on 12/23/22 and had subsequent successful right atrial lead revision for dual-chamber permanent pacemaker with left bundle pacing lead on 12/24/22. After pacemaker procedure on 12/23/22, patient developed significant delirium. It had been noted that patient had history of agitated delirium after sedative medications. Delirium continued to be monitored. On 12/26/22, patient had acute onset of fever with acute complaint of SOB. He was started on abx therapy. A chest CT was performed which revealed multifocal pneumonia vs. aspiration pneumonitis. Abx therapy was escalated. He was started on mIVF therapy and supplemental O2 was initiated. Unfortunately overnight 12/26-12/27 (speech and hearing director hours of 12/27), patient had acute onset of respiratory distress and worsening agitation. Communication note 12/27/22 at 0637 "I was notified approximately at 2 AM the patient was experiencing respiratory distress and agitation. Observe the patient and examined him, he was clearly agitated and restless and certainly tachypneic with respiratory rates in the mid to high 30s. Patient was saturating high 80s/low 90s on 15 L nonrebreather. After discussing risks and benefits with pharmacy and nursing, elected to give 1 mg of IV morphine the patient for respiratory distress. Morphine was administered and patient seemed to begin breathing more slowly and agitation was certainly reduced per nursing. At approximately 4:30 AM a code bright was called due to hypotension with blood pressures in the 60s over 40s. Prior to my arrival I gave verbal order for a bolus of normal saline. Upon my arrival patient appeared lethargic and tachypneic. His breathing was labored and he had rattled respirations. It is at this time that a litany of labs including CBC, CMP, magnesium, troponin, ABG were drawn. Patient was put on nonrebreather with hypertonic saline. Prior to completion of normal saline bolus, 500 cc of 5% albumin was given followed by the remainder of the normal saline. Although while that these medications are being given, nursing and respiratory or suctioning the secretions from the patient. Because of his history of possible adrenal insufficiency and chronic steroid use, it 100 mg dose of hydrocortisone sodium succinate was given. Chest x-ray was also taken which had shown worsening of pneumonia and possibly vascular congestion. For this reason, Rocephin was switched to Zosyn. Azithromycin was kept on board for atypical coverage. ABG had shown respiratory acidosis at 7.24 and a low bicarb. For this reason, 50 mill equivalents of sodium bicarb was given as well. At the end of fluid resuscitation and medication administration, patient had been stabilized to a blood pressure of 128/93 and was saturating above 90% on 15 L via nonrebreather. Hypertonic saline nebulizer ordered twice daily until secretions improve. Duo nebs also added. Additionally, ordered manual chest percussion therapy with specifications not to percuss over the left anterior chest due to pacemaker placement. And lastly, all antihypertensives and beta-blockade were held given hypotension. Will relay information to day team provider for further recommendations and treatment." Patient developed shock, likely septic. He was transferred to the ICU. Unfortunately patient continued to deteriorate and did not respond to pressors. He went into PEA. CPR was started at 0806. Received total 8 epi, 4 bicarb, and 2 calcium chloride. Unfortunately ROSC was not obtained. Patient was pronounced at 0829 on 12/27/22. Family was contacted and patient's , son, and daughter came to the hospital. Hospitalist team (Dr. Lee and Dr. Bruno) and Nicolas Kauffman PA-C met with patient's family. Total Time Total Time Spent Total Time Spent (In Minutes): <30 Discharge Plan Discharge Items Patient Disposition: Other Date/Time: 12/27/22 08:29 Supervising Physician Co-Signing Physician Notes I personally examined the patient and verified all berger points of history and exam, discussed case, and agree with decision making with Dr Bruno Patient hypotensive through the night, stabilized with fluid boluses, but then getting hypotensive againresident physician signed out to both his colleague as well as myself, because his pressures were dropping again. We immediately moved patient to ICU, unfortunately he arrested, and despite resuscitative efforts, ROSC was unable to be obtained. Given his pneumonia, and a septic shock kind of appearance, I suspect that he had worsening sepsis/septic shock in spite of antibiotic treatment. Certainly hypoxia driving the cardiopulmonary failure also could have been part of the picture, either wayprogressive pneumonia in spite of treatment appears to been the main cause of . Last plan from yesterday's note: Complete heart blockstatus post pacer lead revision. Per cardiology. Appreciate cardiology input. Delirium/metabolic encephalopathyPer familyseems to happen anytime he has a procedure. Previously I discussed that the common course of delirium is would be that even after the anesthetic wears off, the hospital environment, as well as the nature of the delirium itself often last much longer. Family noted that his always abruptly resolvedwhich gave hope that it may be short-lived, but unfortunately this does not appear to be the case. In terms of metabolic factors, since he is fairly delirious and unlikely to be maintaining PO hydrat ion - LR @ 80ml/hr, follow electrolytes with basic metabolic panel daily until he is doing better; septic/infectiousevolved - i had ordered CRP for this AM to screen since he was unable to voice symptoms - and he had a temp as well as the CRP returning at 13.5 --> further w/u highly suspicious for pneumonia (does have old scarring/chronic findings from x-rays ever since last summerbut CT is rob picious for pneumonia as is his clinical picture), unable to voice symptomstherefore UA/culture sent as well, blood cultures sentbut does appear to have findings consistent with pneumonia as an infectious cause of encephalopathy as wellazithromycin/Rocephin started; kendradell did have light anesthesia for initial pacemaker placement, none since, unfortunately with his risk to self and others he has needed a few doses of antipsychotic to protect himself from harm which can also be a bit deliriogenic, but no other overtly deliriogenic meds; environmentcertainly being in the hospitalparticularly being in the ICU can be very deliriogenic (unfortunately now he is at least able to be downgraded to PCU). Continue to follow closely. Reassurance/reorientation as possible. Resident Activity Tracking Resident Involvement: Resident Care Provided Care Provided: Adult Hospital Medicine
--- NOTE | 2022-12-27 19:10 | Billing Data ---
Date of Service December 27, 2022 Coding Level of Care Code 36076 IN/OBS DISCH 30 MIN/LESS
== END 2022-12-27 10:38 | disposition expired | DRG 242 ==
LOC: ED 19:17 → 2S 21:20 → SUATTDRO 21:20 → 2S 21:47 → 1E 12-23 07:33 → 2E 12-25 18:18 → 1E 12-27 07:49